=== PATIENT | male | born 1945 | race Caucasian/White ===

== ENCOUNTER → 2020-03-23 09:37 | Outpatient (CLI) | payer OTHER, SELFPAY ==
[2020-03-25 04:08] LABS: COVID19 Sendout Not Detected (Not Detected)
== END ==
PROVIDERS: Family Provider Family Medicine; PCP Family Medicine; Visit Provider Physician Assistant
DX: R50.9 Fever, unspecified (principal)
CPT/HCPCS: 87635

== ENCOUNTER → 2021-11-04 10:41 | Outpatient (CLI) | payer OTHER, SELFPAY ==
--- NOTE | 2021-11-04 | DI.US.S_ITS ---
PROCEDURE: US ABD AORTA ANEURYSM SCREEN INDICATIONS: CARDIOVASCULAR DISORDER/NICOTINE DEPENENCE TECHNIQUE: Real time scanning was performed of the aorta and iliac arteries, with image documentation. COMPARISON: None. FINDINGS: Aorta: Proximal aortic is not well seen. Mid-aorta measures 0.7 cm. Distal aortic diameter is 2.1 cm. Iliac arteries: Right common iliac artery measures 0.9 cm. Left common iliac artery measures 0.8 cm. IMPRESSION: Proximal aorta not well seen; otherwise no abdominal aortic or proximal common iliac artery aneurysm. Dictated by: Santana Andersen [facility] Interpreted: Cirilo Espinoza MD on 11/04/2021 at 14:42 Transcribed by: BRIJESH on 11/04/2021 at 14:43 Approved by: Cirilo Espinoza M.D. on 11/04/2021 at 16:48
== END ==
PROVIDERS: PCP Family Medicine; Referring Provider Family Medicine; Visit Provider Family Medicine
DX: Z13.6 Encounter for screening for cardiovascular disorders (principal); F17.210 Nicotine dependence, cigarettes, uncomplicated
CPT/HCPCS: 76706

== ENCOUNTER 2022-11-28 11:28 | Day surgery (SDC) | payer OTHER, SELFPAY ==
--- NOTE | 2022-11-28 | PATH_ITS ---
[facility] Accession Number: [id number] No. of containers..02 Tissue . 01 Material submitted: . PART A: rectum - RECTUM PART B: colon - ASCENDING COLON . 01 Clinical history: . SCREENING COLONOSCOPY . 01 Diagnosis: A. Rectum, Biopsy: Tubular adenoma. . B. Ascending Colon, Biopsy: Colonic mucosa with prominent benign lymphoid aggregate. Negative for serrated lesion, dysplasia or malignancy. MRV 12/01/2022 1256 Local . 01 Electronically signed: . Mickey Lopez MD, PhD, Pathologist NPI- [id number] . 01 Gross description: . Part A: RECTUM: Received in formalin are 3 fragment(s) of floyd, soft tissue measuring 0.3 x 0.3 x 0.2 cm to 0.2 x 0.1 x 0.1 cm submitted entirely in 1 cassette(s) Part B: ASCENDING COLON: Received in formalin are 2 fragment(s) of floyd, soft tissue measuring 0.2 x 0.1 x 0.1 cm to 0.2 x 0.1 x 0.1 cm submitted entirely in 1 cassette(s) /CPE 11/29/2022 0702 Local . 01 Pathologist provided ICD-10: D12.8 . 01 CPT . 693875, [id number] Specimen Comment: A courtesy copy of this report has been sent to [phone] Performed at: 01 [facility] [address] [place] [address] [id number] MD Lenin Martinez MD Phone: [phone]
[2022-11-28 12:09] VITALS: BMI 26.9
[2022-11-28] MEDS: LACTATED RINGERS 1,000 ML 200 ML IV (12:15)
[2022-11-28 12:19] VITALS: BP 152/86; PULSE 96; RESP 16; TEMP 36.6; O2SAT 97
--- NOTE | 2022-11-28 13:24 | PM.HP.1 ---
History of Present Illness History of Present Illness Date Patient Seen: 11/28/22 Time Patient Seen: 13:24 Chief complaint: Screening Colonoscopy Narrative: The patient presents for colorectal screening. Colonoscopy 6 years ago demonstrated benign polyps. No personal or family history of colon cancer. On further history denies any recent gastrointestinal symptoms. No nausea, vomiting, abdominal pain, loss of appetite, unexplained weight loss, change in bowel habits, or blood per rectum. Patient History Medical History (Updated 11/27/22 @ 15:09 by Aide Saldana RN) Enlarged prostate Hypercholesteremia Family & Social History Social History: household members spouse Tobacco & Substance use: Smoking Status Never smoker alcohol intake current alcohol intake frequency holiday/special occasion Substance Use Type does not use Meds Home Medications and Allergies Home Medications Medication Instructions Recorded Confirmed Type calcium carb,cit 300 mg-magnesium 1 tab PO DAILY 11/27/22 11/28/22 History cit,ox 150 mg-vit D3 400 unit tablet (Hany-Mag Complex) cholecalciferol (vitamin D3) 50 50 mcg PO DAILY 11/27/22 11/28/22 History mcg (2,000 unit) capsule (Vitamin D3) magnesium aspartate-potassium 1 tab PO DAILY 11/27/22 11/28/22 History aspartate 250 mg-250 mg tablet rosuvastatin 5 mg tablet 5 mg PO DAILY 11/27/22 11/28/22 History tamsulosin 0.4 mg capsule 0.4 mg PO BEDTIME 11/27/22 11/28/22 History vitamin K2 40 mcg tablet 40 mcg PO DAILY 11/27/22 11/28/22 History Allergies Allergy/AdvReac Type Severity Reaction Status Date / Time No Known Drug Allergies Allergy Verified 11/28/22 12:07 Exam Vital Signs (past 8 hours): - 11/28/22 12:19 Temperature 97.9 F Pulse Rate 96 H Respiratory Rate 16 Blood Pressure 152/86 H Pulse Oximetry 97 Oxygen Delivery Method Room Air Oxygen Delivery Method Room Air Narrative Exam Narrative: General adult male alert oriented no acute distress Assessment & Plan Assessment & Plan narrative: The patient requires colorectal screening and colonoscopy is recommended. Technical details were discussed. Risks, benefits, alternatives explained. Risks including but not limited to myocardial infarction, aspiration, bleeding, pain, missed lesion, incomplete examination, need for further radiographic studies, colonic perforation, and need for major abdominal surgery were discussed. All questions were answered to their satisfaction, and they are in agreement with this plan. Time Spent With Patient Critical Care time: I spent a total of [] minutes of critical care time on this patient's care today; this time is exclusive of procedural time.
--- NOTE | 2022-11-28 13:25 | PM.OP.COLON ---
Operative Date/Time/Diagnoses Date of procedure: 11/28/22 Time of procedure: 13:25 Pre-op diagnosis: Personal history of colonic polyps Post-op diagnosis: other (Colonic polyps) Procedure & Clinicians Study performed: Colonoscopy Same procedure as scheduled: Yes Indications: Personal history of colonic polyps Surgeon: Jean Ricci Procedure Notes Procedure in detail: The history and physical was performed/updated and the patient is ASA class is 2. The procedure was discussed in detail with the patient. Potential risks complications including infection, bleeding, missed diagnosis, perforation, need for surgery, and were explained. Their questions were answered and informed consent was obtained. Patient was brought to the procedure room and placed standard monitoring equipment. The patient's vital signs were monitored continuously throughout the entire procedure. Prior to starting time-out was performed. The patient was placed in the left lateral recumbent position. Procedural sedation was administered by anesthesia. Examination began with a thorough inspection of the perianal area there was no evidence of fissures, fistulae, external hemorrhoids or cutaneous malignancy. The colonoscopy scope was then placed into the anal canal and was advanced to the cecum, which was identified by the ileocecal valve, the appendiceal orifice and the confluence of the taenia. The scope was then slowly withdrawn examining colon thoroughly in all directions, irrigating it of any residual stool. Within the ascending colon there were 2 polyps both proximally 5 mm in size each which were removed with biopsy forceps. Within the rectum there were 2 polyps both less than 1 cm each removed with combination of biopsy forceps and cold snare. The entirety of the colon was significant for wide mouth diverticulum. The patient tolerated the procedure well. They will be discharged once criteria are met. The prep was of good/excellent quality. The withdrawl time was 7 minutes. Specimen(s): other (Colonic polyps from rectum and ascending colon) Impression: Colonic polyps x4 Post-procedure Recommendations: High fiber diet Plan for aftercare: Follow-up is dependent on pathology findings Disposition: same day surgery
[2022-11-28 13:54] VITALS: BP 147/80; PULSE 76; RESP 16; TEMP 36.2; O2SAT 96
[2022-11-28 13:59] VITALS: BP 156/79; PULSE 81; RESP 16; O2SAT 96
[2022-11-28 14:04] VITALS: BP 166/83; PULSE 76; RESP 14; O2SAT 97
--- NOTE | 2022-11-28 14:04 | SUR.PHASEI ---
pt states he feels a bit bloated and was encouraged to pass gas. Rn suggested some ways to do this by laying on left side, walking around and sitting on the toilet.
[2022-11-28 14:09] VITALS: BP 142/93; PULSE 74; RESP 16; TEMP 36.3; O2SAT 96
[2022-11-28 14:15] VITALS: BP 119/91; PULSE 76; RESP 14; O2SAT 96
--- NOTE | 2022-11-28 14:40 | SUR.PHASEII ---
Pt A&Ox4, denies any distress, abdomen soft, voided without any issues and ready to discharge home. Discharge instructions reviewed with patient and spouse with time allowed for questions. IV DC'd intact. Pt left unit stable with all personal belongings via w/c to ER entrance where spouse will transport pt home.
== END 2022-11-28 14:35 | disposition home or self-care (01) ==
PROVIDERS: PCP Family Medicine; Referring Provider Surgery; Visit Provider Surgery
PROC: 0DJD8ZZ Inspection of Lower Intestinal Tract, Via Natural or Artificial Opening Endoscopic (ICD-10-PCS; CPT 45378; principal; 2022-11-28 13:00)
DX: Z12.11 Encounter for screening for malignant neoplasm of colon (principal); Z86.010 Personal history of colon polyps; D12.8 Benign neoplasm of rectum
CPT/HCPCS: 45385; 45380; J2704; J3010

== ENCOUNTER 2023-04-26 14:07 | Emergency (ER) | payer OTHER, SELFPAY ==
[2023-04-26] VITALS (9 sets, daily range): BP systolic 152–180; BP diastolic 78–93; PULSE 77–97; RESP 18–33; TEMP 36.6; O2SAT 95–97; BMI 27.3
[2023-04-26] MEDS: PANTOPRAZOLE 40 MG VIAL 80 MG IV (14:26)
[2023-04-26 14:50] LABS: Add Manual Diff / Slide Review NO; Basophils Absolute Auto 0 /uL (0-100); Basophils Percent Auto 0.4 % (0-2); Eosinophils Absolute Auto 100 /uL (0-450); Eosinophils Percent Auto 1.9 % (2-4); Hematocrit 51.7 % (41-53); Hemoglobin 17.6 g/dL (13.5-17.5); Lymphocytes Absolute Auto 1300 /uL (1100-4500); Lymphocytes Percent Auto 18.9 % (25-40); Mean Corpuscular HGB Conc 34.1 % (30-36); Mean Corpuscular Hemoglobin 29.5 PG (26-34); Mean Corpuscular Volume 86.3 fL (80-100); Monocytes Absolute Auto 1200 /uL (0-900); Monocytes Percent Auto 16.2 % (3-14); Neutrophils Absolute Auto 4400 /uL (1500-7000); Neutrophils Percent Auto 62.6 % (50-75); Platelet Count 173 X10^3/uL (150-400); Red Blood Cell Count 5.99 X10^6/uL (4.5-5.9); Red Cell Distribution Width 13.8 % (11.6-14.8); White Blood Cell Count 7.1 X10^3/uL (4.5-11.0)
[2023-04-26 14:58] LABS: INR 1.2 (0.9-1.3); Prothrombin Time 13.5 SECONDS (10.1-12.7)
[2023-04-26 15:01] LABS: PTT Partial Thromboplastin Tim 31 SECONDS (26-36)
[2023-04-26 15:07] LABS: Alanine Aminotransferase 19 IU/L (<50); Albumin 3.8 g/dL (3.5-5.0); Albumin Globulin Ratio 1.3 (1.0-2.8); Alkaline Phosphatase 77 U/L (38-126); Aspartate Aminotransferase 28 IU/L (17-59); Bilirubin Total 0.9 mg/dL (0.2-1.3); Blood Urea Nitrogen 18 mg/dL (9-20); Calcium 8.3 mg/dL (8.4-10.2); Carbon Dioxide 28 mmol/L (22-32); Chloride 100 mmol/L (98-107); Estimated Glomerular Filt Rate > 60 mL/min (>60); Glucose 112 mg/dL (80-110); HEMOLYSIS 22 (0-50); Potassium 3.8 mmol/L (3.4-5.1); Sodium 137 mmol/L (137-145); Total Protein 6.8 g/dL (6.3-8.2)
--- NOTE | 2023-04-26 15:28 | DI.CT.S_ITS ---
PROCEDURE: CT ABDOMEN PELVIS W CON INDICATIONS: Generalized abdominal pain with distention TECHNIQUE: After the administration of IV contrast, axial sections were acquired from the lung bases to the pubic symphysis. Coronal and sagittal reformats were performed. For radiation dose reduction, the following was used: automated exposure control, adjustment of mA and/or kV according to patient size. COMPARISON: None. FINDINGS: Image quality: Excellent. Lung bases: Unremarkable. Heart: No significant findings. ABDOMEN: Liver: Hepatic steatosis is present. Gallbladder: Small punctate areas of hyperdensity are noted along the wall of the gallbladder without gallbladder wall thickening. A 3 mm calcification is present within the dependent gallbladder lumen. Biliary ducts: Unremarkable. Pancreas: Unremarkable. Spleen: Unremarkable. Adrenal Glands: Unremarkable. Kidneys and Ureters: Multiple low-attenuation foci are present within the left kidney cyst consistent with simple cysts as well as simple parapelvic cysts. Stomach and Bowel: There are dilated fluid-filled loops of small bowel with greatest dimension measuring 4.4 cm. Transition point appears to be in the mid abdomen. Appendix is normal. Colonic diverticula are present without inflammatory change. Peritoneum: No abnormal intraperitoneal fluid. No free air. Ventral Wall: No hernia. Abdominal Nodes: No retroperitoneal or mesenteric adenopathy by size criteria. Vessels: Aorta and inferior vena cava are normal in size. PELVIS: Pelvic Organs: Unremarkable. Bladder: Bladder is distended with left and right lateral diverticula. Prostate gland is enlarged with calcifications. Pelvic Nodes: No enlarged lymph nodes. Miscellaneous: Bilateral inguinal hernias are seen. Bones: Unremarkable. IMPRESSION: Partial small bowel obstruction as above. Diverticulosis. Cholelithiasis. In addition, punctate areas of hyperdensity are noted along the wall without thickening. This could represent adenomyomatosis further evaluation with ultrasound may be obtained on a nonemergent basis if clinically indicated. No visualization of cholecystitis. Dictated by: Nena Snow M.D. on 04/26/2023 at 16:24 Approved by: Nena Snow M.D. on 04/26/2023 at 16:26
--- NOTE | 2023-04-26 15:28 | ED_ITS ---
HPI - General Adult General Chief complaint: Abdominal Pain Stated complaint: Swollen stomach Time Seen by Provider: 04/26/23 14:37 Source: patient Mode of arrival: Ambulatory History of Present Illness HPI narrative: 77-year-old male with no prior abdominal surgeries. Has had multiple colonoscopies in the past. He has had some polyps in the past. Is also told that he had diverticulosis. He stated that proximally 3 days ago he started to feel like his abdomen was distended. He did throw up once. He is not thrown up since then but has had some nausea. He is not having any urinary symptoms. Is still passing flatus. Is still having bowel movements. None of these seem to change any of his abdominal complaints. No chest pain or shortness of breath. No fevers. Related Data Home Medications Medication Instructions Recorded Confirmed calcium carb,cit 300 mg-magnesium 1 tab PO DAILY 11/27/22 04/12/23 cit,ox 150 mg-vit D3 400 unit tablet (Hany-Mag Complex) cholecalciferol (vitamin D3) 50 50 mcg PO DAILY 11/27/22 04/12/23 mcg (2,000 unit) capsule (Vitamin D3) magnesium aspartate-potassium 1 tab PO DAILY 11/27/22 04/12/23 aspartate 250 mg-250 mg tablet vitamin K2 40 mcg tablet 40 mcg PO DAILY 11/27/22 04/12/23 rosuvastatin 5 mg tablet 10 mg PO DAILY 04/12/23 04/12/23 Previous Rx's Medication Instructions Recorded tamsulosin 0.4 mg capsule 0.4 mg PO BEDTIME #180 caps 04/12/23 Allergies Allergy/AdvReac Type Severity Reaction Status Date / Time No Known Drug Allergies Allergy Verified 04/12/23 12:54 Review of Systems Review of Systems ROS Unobtainable: All systems reviewed & are unremarkable except as noted in HPI and below Constitutional Constitutional: Reports system reviewed and no additional complaints, except as documented Gastrointestinal Gastrointestinal: Reports system reviewed and no additional complaints, except as documented Genitourinary Genitourinary: Reports system reviewed and no additional complaints, except as documented Integumentary/Breasts Skin/Breast: Reports system reviewed and no additional complaints, except as documented Patient History Medical History BPH w urinary obs/LUTS Enlarged prostate H/O nephrolithotomy with removal of calculi Heart attack History of nephrolithiasis Hypercholesteremia Kidney stones Renal disease Surgical History History of coronary artery stent placement Family History Mother Cancer CAD in [place] artery Hypertension Social History marital status: number of children: 1 household members: spouse Smoking Status: Former smoker alcohol intake: current Type(s) of exercise: walking frequency: 1-2 times per week Smoking Status: Former smoker alcohol intake frequency: holidays/special occasions only Substance Use Type: does not use Exam Initial Vital Signs Initial Vital Signs: Vital Signs Temperature 97.9 F 04/26/23 14:10 Pulse Rate 97 H 04/26/23 14:10 Respiratory Rate 18 04/26/23 14:10 Blood Pressure 170/78 H 04/26/23 14:10 Pulse Oximetry 97 04/26/23 14:10 Oxygen Delivery Method Room Air 04/26/23 14:10 Const General: cooperative, comfortable and No ill appearing HENMT Head: normal to inspection Resp Effort & Inspection: normal respiratory effort Auscultation: clear to auscultation bilaterally Cardio Rate: regular rate Rhythm: regular rhythm GI Inspection: normal to inspection and distended Palpation: soft and No tender Neuro General: patient alert, patient awake and moves all extremities Course Orders Ordered: ED Orders 04/26/23 14:18 EKG-12 Lead Stat 04/26/23 14:38 Complete Blood Count AUTO DIFF Stat Comprehensive Metabolic Panel Stat PTT Partial Thromboplastin Adrian Stat Prothrombin Time INR Stat Type and Screen Stat 04/26/23 15:28 CT abdomen pelvis w con Stat 04/26/23 17:04 Consult to General Surgery Stat Sodium Chloride (Normal Saline 0.9%) 1,000 mls @ 1,000 mls/hr IV BOLUS ONE Stop: 04/26/23 18:47 Ondansetron HCl (Ondansetron 4 Mg/2 Ml Inj) 4 mg IV NOW PRN PRN Reason: Nausea And Vomiting Ondansetron HCl (Ondansetron 4 Mg Odt) 4 mg SL NOW PRN PRN Reason: Nausea And Vomiting Discontinued Medications Pantoprazole Sodium (Pantoprazole 40 Mg Vial) 80 mg IV NOW ONE Stop: 04/26/23 14:19 Last Admin: 04/26/23 14:26 Dose: 80 mg Documented By: NADYA Vital Signs Vital signs: Vital Signs - 8 hr 04/26/23 14:10 04/26/23 14:31 04/26/23 15:00 Temperature 97.9 F Pulse Rate 97 H 83 83 Respiratory Rate 18 24 Blood Pressure 170/78 H Pulse Oximetry 97 97 97 Oxygen Delivery Method Room Air 04/26/23 15:01 04/26/23 15:01 04/26/23 15:30 Temperature Pulse Rate 84 Respiratory Rate 29 H Blood Pressure 154/88 H 152/84 H Pulse Oximetry 96 Oxygen Delivery Method 04/26/23 15:30 04/26/23 16:00 04/26/23 16:11 Temperature Pulse Rate 79 79 Respiratory Rate 31 H 31 H Blood Pressure 163/91 H Pulse Oximetry 95 97 Oxygen Delivery Method 04/26/23 16:11 04/26/23 16:15 04/26/23 16:15 Temperature Pulse Rate 78 78 Respiratory Rate 26 H 33 H Blood Pressure 167/93 H Pulse Oximetry 96 96 Oxygen Delivery Method Medical Decision Making Lab Data Lab results reviewed: Yes I reviewed the patient's lab results. 04/26/23 14:38 04/26/23 14:38 Labs: Lab Results 04/26/23 04/26/23 04/26/23 Range/Units 14:38 14:38 14:38 WBC 7.1 (4.5-11.0) X10^3/uL RBC 5.99 H (4.5-5.9) X10^6/uL Hgb 17.6 H (13.5-17.5) g/dL Hct 51.7 (41-53) % MCV 86.3 (80-100) fL MCH 29.5 (26-34) PG MCHC 34.1 (30-36) % RDW 13.8 (11.6-14.8) % Plt Count 173 (150-400) X10^3/uL Neut % (Auto) 62.6 (50-75) % Lymph % (Auto) 18.9 L (25-40) % Bradford % (Auto) 16.2 H (3-14) % Eos % (Auto) 1.9 L (2-4) % Baso % (Auto) 0.4 (0-2) % Neut # (Auto) 4400 (7363-5488) /uL Lymph # (Auto) 1300 (2943-6270) /uL Bradford # (Auto) 1200 H (0-900) /uL Eos # (Auto) 100 (0-450) /uL Baso # (Auto) 0 (0-100) /uL PT 13.5 H (10.1-12.7) SECONDS INR 1.2 (0.9-1.3) APTT 31 (26-36) SECONDS Sodium 137 (137-145) mmol/L Potassium 3.8 (3.4-5.1) mmol/L Chloride 100 (98-107) mmol/L Carbon Dioxide 28 (22-32) mmol/L BUN 18 (9-20) mg/dL Creatinine 0.82 (0.66-1.25) mg/dL Estimated GFR > 60 (>60) mL/min BUN/Creatinine Ratio 22.0 (6-22) Glucose 112 H (80-110) mg/dL Calcium 8.3 L (8.4-10.2) mg/dL Total Bilirubin 0.9 (0.2-1.3) mg/dL AST 28 (17-59) IU/L ALT 19 (<50) IU/L Alkaline Phosphatase 77 (38-126) U/L Total Protein 6.8 (6.3-8.2) g/dL Albumin 3.8 (3.5-5.0) g/dL Globulin 3.0 (1.7-4.1) g/dL Albumin/Globulin Ratio 1.3 (1.0-2.8) Blood Type Antibody Screen 04/26/23 Range/Units 14:38 WBC (4.5-11.0) X10^3/uL RBC (4.5-5.9) X10^6/uL Hgb (13.5-17.5) g/dL Hct (41-53) % MCV (80-100) fL MCH (26-34) PG MCHC (30-36) % RDW (11.6-14.8) % Plt Count (150-400) X10^3/uL Neut % (Auto) (50-75) % Lymph % (Auto) (25-40) % Bradford % (Auto) (3-14) % Eos % (Auto) (2-4) % Baso % (Auto) (0-2) % Neut # (Auto) (1398-6364) /uL Lymph # (Auto) (6380-0750) /uL Bradford # (Auto) (0-900) /uL Eos # (Auto) (0-450) /uL Baso # (Auto) (0-100) /uL PT (10.1-12.7) SECONDS INR (0.9-1.3) APTT (26-36) SECONDS Sodium (137-145) mmol/L Potassium (3.4-5.1) mmol/L Chloride (98-107) mmol/L Carbon Dioxide (22-32) mmol/L BUN (9-20) mg/dL Creatinine (0.66-1.25) mg/dL Estimated GFR (>60) mL/min BUN/Creatinine Ratio (6-22) Glucose (80-110) mg/dL Calcium (8.4-10.2) mg/dL Total Bilirubin (0.2-1.3) mg/dL AST (17-59) IU/L ALT (<50) IU/L Alkaline Phosphatase (38-126) U/L Total Protein (6.3-8.2) g/dL Albumin (3.5-5.0) g/dL Globulin (1.7-4.1) g/dL Albumin/Globulin Ratio (1.0-2.8) Blood Type B Positive Antibody Screen Negative Imaging Data CT scan - abdomen/pelvis: Radiologist's Impression: PROCEDURE:? CT ABDOMEN PELVIS W CON ? INDICATIONS:? Generalized abdominal pain with distention ? TECHNIQUE:? After the administration of IV contrast, axial sections were acquired from the lung bases to the pubic symphysis.? Coronal and sagittal reformats were performed.? For radiation dose reduction, the following was used:? automated exposure control, adjustment of mA and/or kV according to patient size. ? COMPARISON:? None. ? FINDINGS:? Image quality:? Excellent.? ? Lung bases:? Unremarkable.? ? Heart:? No significant findings. ? ? ABDOMEN: Liver:? Hepatic steatosis is present. Gallbladder:? Small punctate areas of hyperdensity are noted along the wall of the gallbladder without gallbladder wall thickening.? A 3 mm calcification is present within the dependent gallbladder lumen.? ? Biliary ducts:? Unremarkable.? ? Pancreas:? Unremarkable.? ? Spleen:? Unremarkable.? ? Adrenal Glands:? Unremarkable.? ? Kidneys and Ureters:? Multiple low-attenuation foci are present within the left kidney cyst consistent with simple cysts as well as simple parapelvic cysts. ? Stomach and Bowel:? There are dilated fluid-filled loops of small bowel with greatest dimension measuring 4.4 cm.? Transition point appears to be in the mid abdomen.? Appendix is normal.? Colonic diverticula are present without inflammatory change.? Peritoneum:? No abnormal intraperitoneal fluid.? No free air.? ? Ventral Wall: ? No hernia.? Abdominal Nodes:? No retroperitoneal or mesenteric adenopathy by size criteria.? Vessels:? Aorta and inferior vena cava are normal in size.? ? PELVIS: Pelvic Organs:? Unremarkable.? ? Bladder:? Bladder is distended with left and right lateral diverticula.? Prostate gland is enlarged with calcifications. Pelvic Nodes: No enlarged lymph nodes.? Miscellaneous:? Bilateral inguinal hernias are seen. ? ? ? Bones:? Unremarkable.? IMPRESSION:? ? Partial small bowel obstruction as above. ? Diverticulosis. ? Cholelithiasis.? In addition, punctate areas of hyperdensity are noted along the wall without thickening.? This could represent adenomyomatosis further evaluation with ultrasound may be obtained on a nonemergent basis if clinically indicated.? No visualization of cholecystitis. ECG Data Attestation: I personally reviewed and interpreted this ECG as follows: Interpretation: Sinus rhythm Ventricular rate 84 First-degree AV block GA interval 214 milliseconds Right bundle-branch block No ST T wave changes MDM Narrative Medical decision making narrative: Patient has been having bowel movements and also passing flatus. He is having some nausea but no vomiting. Is tolerating oral intake. CT scan concerning for partial small bowel obstruction. He does have distended abdomen. Did discuss the case with Dr. Gonzales on-call for General surgery who evaluated the patient here in the emergency department. Because he has been passing flatus and also having bowel movements Dr. Gonzales is more concerned that potentially this is an ileus rather than a bowel obstruction. He talked with the patient about admission to the hospital versus discharge home. Patient and at bedside okay with discharge home. They do live locally. If his symptoms worsen they will return to the emergency department for further evaluation. Discharge Plan Departure Patient Disposition: Home Clinical Impression: Abdominal pain Instructions: DI for Abdominal Pain-Adult Activity Restrictions/Additional Instructions: Be sure that you were increasing your fluid intake with clear liquids. If your symptoms worsen or you start vomiting or any new symptoms please return to the emergency department. Follow all of the instructions given to you by the general surgeon who evaluated you here in the ER. Prescriptions: No Action magnesium, potassium aspartate 250-250 mg Tablet 1 tab PO DAILY cholecalciferol (vitamin D3) [Vitamin D3] 50 mcg (2,000 unit) Capsule 50 mcg PO DAILY vitamin K2 40 mcg Tablet 40 mcg PO DAILY Hany-Mag Complex 300 mg-150 mg- 400 unit Tablet 1 tab PO DAILY rosuvastatin 5 mg tablet 10 mg PO DAILY tamsulosin 0.4 mg capsule 0.4 mg PO BEDTIME Qty: 180 3RF Referrals: Eduardo Torres MD [Primary Care Provider] - Stand Alone Forms: Patient Portal/API
--- NOTE | 2023-04-26 17:51 | PM.CN ---
History of Present Illness Consult details Date Patient Seen: 04/26/23 Time Patient Seen: 17:52 Chief complaint: Swollen stomach Narrative: The patient is a 77-year-old man who presented with abdominal discomfort, distention, nausea and vomiting over the past 4-5 days. His worse day was Sunday when he vomited after eating. He is not vomited since then his nausea has actually resolved somewhat today. He is continuing to pass flatus and even some small amounts of stool. He has never had abdominal surgery before. He saw his urologist last week and his dose of tamsulosin was increased twice a day but it made him feel loopy so we stopped after 2 days. Meds Home Medications and Allergies Home Medications Medication Instructions Recorded Confirmed Type calcium carb,cit 300 mg-magnesium 1 tab PO DAILY 11/27/22 04/12/23 History cit,ox 150 mg-vit D3 400 unit tablet (Hany-Mag Complex) cholecalciferol (vitamin D3) 50 50 mcg PO DAILY 11/27/22 04/12/23 History mcg (2,000 unit) capsule (Vitamin D3) magnesium aspartate-potassium 1 tab PO DAILY 11/27/22 04/12/23 History aspartate 250 mg-250 mg tablet vitamin K2 40 mcg tablet 40 mcg PO DAILY 11/27/22 04/12/23 History rosuvastatin 5 mg tablet 10 mg PO DAILY 04/12/23 04/12/23 History tamsulosin 0.4 mg capsule 0.4 mg PO BEDTIME #180 caps 04/12/23 04/12/23 Rx Allergies Allergy/AdvReac Type Severity Reaction Status Date / Time No Known Drug Allergies Allergy Verified 04/12/23 12:54 Exam Vital Signs (past 8 hours): - 04/26/23 14:10 04/26/23 14:31 04/26/23 15:00 Temperature 97.9 F Pulse Rate 97 H 83 83 Respiratory Rate 18 24 Blood Pressure 170/78 H Pulse Oximetry 97 97 97 Oxygen Delivery Method Room Air 04/26/23 15:01 04/26/23 15:01 04/26/23 15:30 Temperature Pulse Rate 84 Respiratory Rate 29 H Blood Pressure 154/88 H 152/84 H Pulse Oximetry 96 Oxygen Delivery Method 04/26/23 15:30 04/26/23 16:00 04/26/23 16:11 Temperature Pulse Rate 79 79 Respiratory Rate 31 H 31 H Blood Pressure 163/91 H Pulse Oximetry 95 97 Oxygen Delivery Method 04/26/23 16:11 04/26/23 16:15 04/26/23 16:15 Temperature Pulse Rate 78 78 Respiratory Rate 26 H 33 H Blood Pressure 167/93 H Pulse Oximetry 96 96 Oxygen Delivery Method Oxygen Delivery Method Room Air Narrative Exam Narrative: Abdomen soft, nontender, mid tenderness in the mid abdomen No peritonitis Objective Labs 04/26/23 14:38 04/26/23 14:38 Labs: Laboratory Results - last 24 hr 04/26/23 04/26/23 04/26/23 14:38 14:38 14:38 WBC 7.1 RBC 5.99 H Hgb 17.6 H Hct 51.7 MCV 86.3 MCH 29.5 MCHC 34.1 RDW 13.8 Plt Count 173 Neut % (Auto) 62.6 Lymph % (Auto) 18.9 L Blaine % (Auto) 16.2 H Eos % (Auto) 1.9 L Baso % (Auto) 0.4 Neut # (Auto) 4400 Lymph # (Auto) 1300 Blaine # (Auto) 1200 H Eos # (Auto) 100 Baso # (Auto) 0 PT 13.5 H INR 1.2 APTT 31 Sodium 137 Potassium 3.8 Chloride 100 Carbon Dioxide 28 BUN 18 Creatinine 0.82 Estimated GFR > 60 BUN/Creatinine Ratio 22.0 Glucose 112 H Calcium 8.3 L Total Bilirubin 0.9 AST 28 ALT 19 Alkaline Phosphatase 77 Total Protein 6.8 Albumin 3.8 Globulin 3.0 Albumin/Globulin Ratio 1.3 Blood Type Antibody Screen 04/26/23 14:38 WBC RBC Hgb Hct MCV MCH MCHC RDW Plt Count Neut % (Auto) Lymph % (Auto) Blaine % (Auto) Eos % (Auto) Baso % (Auto) Neut # (Auto) Lymph # (Auto) Blaine # (Auto) Eos # (Auto) Baso # (Auto) PT INR APTT Sodium Potassium Chloride Carbon Dioxide BUN Creatinine Estimated GFR BUN/Creatinine Ratio Glucose Calcium Total Bilirubin AST ALT Alkaline Phosphatase Total Protein Albumin Globulin Albumin/Globulin Ratio Blood Type B Positive Antibody Screen Negative [facility] Medical History BPH w urinary obs/LUTS Enlarged prostate H/O nephrolithotomy with removal of calculi Heart attack History of nephrolithiasis Hypercholesteremia Kidney stones Renal disease Surgical History History of coronary artery stent placement Family History Mother Cancer CAD in [place] artery Hypertension Social History marital status: number of children: 1 household members: spouse Tobacco & Substance Use Smoking Status: Former smoker alcohol intake: current Diet and Exercise Type(s) of exercise: walking frequency: 1-2 times per week Assessment & Plan Assessment and plan (1) Abdominal distention: Status: Acute Plan I suspect Joe has more of an ileus secondary to either some sort of a viral infection or his medication change. He is never had abdominal surgery and he continues to pass flatus and even some stool so a bowel obstruction seems unlikely. I presented 2 options to Joe. One option would be to admit him for observation. We would give him IV fluids but no other therapy would be initiated to start. If he became more nauseated and started vomiting we would place an NG-tube. We would then progress up the ladder to Gastrografin challenge and surgery. Alternatively we can give him a L fluids here to hydrate him and he can go home and see how things evolve. I would recommend he have only small amounts of clear liquid diet initially and less he started feeling better soon. He lives in [facility] but he and his were comfortable getting back here quickly if needed. I told him to return if he gets worse at all or if he does not improve within 2 days. Joe and his choose to go home.
== END 2023-04-26 18:13 | disposition home or self-care (01) ==
PROVIDERS: Emergency Provider Emergency Medicine; PCP Family Medicine
DX: R10.84 Generalized abdominal pain (principal); R14.0 Abdominal distension (gaseous)
CPT/HCPCS: 36415; 74177; 80053; 85025; 85610; 85730; 86850; 86900; 86901; 93005; 93010; 96374; 99231; 99284; C9113; Q9967

== ENCOUNTER 2023-04-27 14:38 | Observation (INO) | payer OTHER, SELFPAY ==
--- NOTE | 2023-04-27 14:44 | ED_ITS ---
HPI - General Adult General Chief complaint: Abdominal Pain Stated complaint: here yesterday symptoms are the same or worse Time Seen by Provider: 04/27/23 14:42 Source: patient Mode of arrival: Ambulatory Limitations: no limitations History of Present Illness HPI narrative: Patient is a 77-year-old male who was here in the emergency department yesterday. I evaluated him yesterday. He would a CT scan that was concerning for small-bowel obstruction however he was still tolerating oral intake. Still passing flatus and also still having bowel movements. He was evaluated in the emergency department by Dr. Gonzales who was on-call for General surgery who also evaluated his CT scan. He would a discussion with the patient. They did discuss the possibility for admission to the hospital versus discharge home. Clinically Dr. Gonzales had lesser concern for a bowel obstruction and more concern for an ileus based on his physical exam. After this discussion the patient opted to be discharged home. He stated that things were going well up until last evening when he stops passing flatus. He tried to drink some fluids and eat some toast this morning and had quite a bit of discomfort. Is having nausea but no vomiting. Has not had a bowel movement. No urinary issues. He states that his abdomen is still distended. Potentially not worse than yesterday was certainly not any better. Related Data Home Medications Medication Instructions Recorded Confirmed calcium carb,cit 300 mg-magnesium 1 tab PO DAILY 11/27/22 04/12/23 cit,ox 150 mg-vit D3 400 unit tablet (Hany-Mag Complex) cholecalciferol (vitamin D3) 50 50 mcg PO DAILY 11/27/22 04/12/23 mcg (2,000 unit) capsule (Vitamin D3) magnesium aspartate-potassium 1 tab PO DAILY 11/27/22 04/12/23 aspartate 250 mg-250 mg tablet vitamin K2 40 mcg tablet 40 mcg PO DAILY 11/27/22 04/12/23 rosuvastatin 5 mg tablet 10 mg PO DAILY 04/12/23 04/12/23 Previous Rx's Medication Instructions Recorded tamsulosin 0.4 mg capsule 0.4 mg PO BEDTIME #180 caps 04/12/23 Allergies Allergy/AdvReac Type Severity Reaction Status Date / Time No Known Drug Allergies Allergy Verified 04/27/23 14:49 Review of Systems Constitutional Constitutional: Reports system reviewed and no additional complaints, except as documented Respiratory Respiratory: Reports system reviewed and no additional complaints, except as documented Gastrointestinal Gastrointestinal: Reports system reviewed and no additional complaints, except as documented Genitourinary Genitourinary: Reports system reviewed and no additional complaints, except as documented Integumentary/Breasts Skin/Breast: Reports system reviewed and no additional complaints, except as documented Hematologic/Lymphatic On Anticoagulants: No Patient History Medical History BPH w urinary obs/LUTS Enlarged prostate H/O nephrolithotomy with removal of calculi Heart attack History of nephrolithiasis Hypercholesteremia Kidney stones Renal disease Surgical History History of coronary artery stent placement Family History Mother Cancer CAD in [place] artery Hypertension Social History marital status: number of children: 1 household members: spouse Smoking Status: Former smoker alcohol intake: current Type(s) of exercise: walking frequency: 1-2 times per week Smoking Status: Former smoker alcohol intake frequency: holidays/special occasions only Substance Use Type: does not use Exam Initial Vital Signs Initial Vital Signs: Vital Signs Temperature 97.1 F L 04/27/23 14:46 Pulse Rate 92 H 04/27/23 14:46 Respiratory Rate 18 04/27/23 14:46 Blood Pressure 167/84 H 04/27/23 14:46 Pulse Oximetry 96 04/27/23 14:46 Oxygen Delivery Method Room Air 04/27/23 14:46 Const General: cooperative, comfortable and No ill appearing [facility] Head: normal to inspection and normocephalic Resp Effort & Inspection: normal respiratory effort Cardio Rate: regular rate GI Inspection: distended Palpation: soft, No firm, No guarding and tender Neuro General: patient alert, patient awake and moves all extremities Course Orders Ordered: ED Orders 04/27/23 14:51 Basic Metabolic Panel Stat Complete Blood Count AUTO DIFF Stat 04/27/23 14:52 XR abdomen 1V Stat Sodium Chloride (Normal Saline 0.9%) 1,000 mls @ 125 mls/hr IV CONT CARLOS Last Admin: 04/27/23 15:07 Dose: 125 mls/hr Documented By: SB Vital Signs Vital signs: Vital Signs - 8 hr 04/27/23 14:46 04/27/23 14:46 04/27/23 14:47 Temperature 97.1 F L Pulse Rate 92 H 93 H Respiratory Rate 18 Blood Pressure 167/84 H 166/84 H Pulse Oximetry 96 95 Oxygen Delivery Method Room Air 04/27/23 14:47 Temperature Pulse Rate 91 H Respiratory Rate Blood Pressure Pulse Oximetry 95 Oxygen Delivery Method Medical Decision Making Medical Records Medical records reviewed: Yes I reviewed the patient's medical records. Lab Data Lab results reviewed: Yes I reviewed the patient's lab results. 04/27/23 15:02 04/27/23 15:02 Imaging Data Abdominal x-ray: Radiologist's Impression: PROCEDURE:? XR ABDOMEN 1V ? INDICATIONS:? sbo yesterday ? TECHNIQUE:? One view of the abdomen acquired.? ? COMPARISON:? Located Within [facility], CT, CT ABDOMEN PELVIS W CON, 04/26/2023, 15:38. ? FINDINGS:? ? Surgical changes and devices:? None.? ? Bowel:? Bowel gas pattern is abnormal with persistent gas prominence within the small bowel through the mid abdomen.? The pattern is little if any changed from CT scanning 1 day ago..? ? Soft tissues:? No suspicious abdominal calcifications.? Visualized solid organ contours appear normal in size.? ? Bones:? No suspicious bony lesions.? ? IMPRESSION:? Persistent small-bowel obstruction pattern, no free air seen.? An esophagogastric tube is not identified. MDM Narrative Medical decision making narrative: Patient has a known potential small-bowel obstruction based on his CT scan yesterday. I did discuss the case with Dr. Camacho who is on-call for General surgery who reviewed his CT scan from yesterday. She recommended repeat labs and an upright x-ray. Plan to be is to admit the patient to the hospital for further evaluation and treatment. I did discuss the need for admission with the patient. He expressed understanding as well. Discharge Plan Departure Patient Disposition: Admitted As Inpatient Clinical Impression: Partial small bowel obstruction Admit Date/Time: 04/27/23 14:53 Admit Provider: Ana Camacho
[2023-04-27 14:46] VITALS: BP 167/84; PULSE 92; PULSE 93; RESP 18; TEMP 36.2; O2SAT 95; O2SAT 96; BMI 27.3
[2023-04-27 14:47] VITALS: BP 166/84; PULSE 91; O2SAT 95
--- NOTE | 2023-04-27 14:52 | DI.RAD.S_ITS ---
PROCEDURE: XR ABDOMEN 1V INDICATIONS: sbo yesterday TECHNIQUE: One view of the abdomen acquired. COMPARISON: [facility], CT, CT ABDOMEN PELVIS W CON, 04/26/2023, 15:38. FINDINGS: Surgical changes and devices: None. Bowel: Bowel gas pattern is abnormal with persistent gas prominence within the small bowel through the mid abdomen. The pattern is little if any changed from CT scanning 1 day ago.. Soft tissues: No suspicious abdominal calcifications. Visualized solid organ contours appear normal in size. Bones: No suspicious bony lesions. IMPRESSION: Persistent small-bowel obstruction pattern, no free air seen. An esophagogastric tube is not identified. Dictated by: Awais Singletary M.D. on 04/27/2023 at 15:21 Approved by: Awais Singletary M.D. on 04/27/2023 at 15:21
[2023-04-27 15:00] VITALS: BP 161/80; PULSE 86; O2SAT 94
[2023-04-27] MEDS: SODIUM CHLORIDE 0.9% 1,000 ML 125 ML IV (15:07)
[2023-04-27 15:11] LABS: Add Manual Diff / Slide Review NO; Basophils Absolute Auto 0 /uL (0-100); Basophils Percent Auto 0.3 % (0-2); Eosinophils Absolute Auto 100 /uL (0-450); Eosinophils Percent Auto 2.3 % (2-4); Hematocrit 48.5 % (41-53); Hemoglobin 16.4 g/dL (13.5-17.5); Lymphocytes Absolute Auto 1200 /uL (1100-4500); Mean Corpuscular HGB Conc 33.8 % (30-36); Mean Corpuscular Hemoglobin 29.3 PG (26-34); Mean Corpuscular Volume 86.7 fL (80-100); Monocytes Absolute Auto 700 /uL (0-900); Neutrophils Absolute Auto 3500 /uL (1500-7000); Neutrophils Percent Auto 63.4 % (50-75); Platelet Count 166 X10^3/uL (150-400); Red Blood Cell Count 5.59 X10^6/uL (4.5-5.9); Red Cell Distribution Width 13.7 % (11.6-14.8); White Blood Cell Count 5.5 X10^3/uL (4.5-11.0)
[2023-04-27 15:18] VITALS: BP 167/81; PULSE 83; O2SAT 96
[2023-04-27 15:21] LABS: BUN Creatinine Ratio 21.5 (6-22); Blood Urea Nitrogen 14 mg/dL (9-20); Calcium 8.4 mg/dL (8.4-10.2); Carbon Dioxide 24 mmol/L (22-32); Chloride 104 mmol/L (98-107); Estimated Glomerular Filt Rate > 60 mL/min (>60); Glucose 107 mg/dL (80-110); HEMOLYSIS 17 (0-50); Potassium 3.7 mmol/L (3.4-5.1); Sodium 137 mmol/L (137-145)
[2023-04-27 15:29] VITALS: BMI 27.3
[2023-04-27 15:37] VITALS: BMI 27.3
[2023-04-27 15:46] VITALS: BP 143/86; PULSE 78; RESP 17; TEMP 36.6; O2SAT 96
[2023-04-27 19:27] VITALS: BP 163/86; PULSE 75; RESP 20; TEMP 36.2; O2SAT 96
[2023-04-27] MEDS: ACETAMINOPHEN 325 MG TABLET 975 MG PO (19:49)
[2023-04-27] MEDS: SODIUM CHLORIDE 0.9% 1,000 ML 100 ML IV (19:55)
--- NOTE | 2023-04-27 20:42 | PM.HP.1 ---
History of Present Illness History of Present Illness Date Patient Seen: 04/27/23 Time Patient Seen: 20:46 Chief complaint: here yesterday symptoms are the same or worse Narrative: 77-year-old male who lives on [facility] started to have abdominal pain starting Sunday this week. Time he felt some nausea and described the pain as a ?bandlike pressure? across his abdomen. That night he did have some emesis with bile and acid. He had some night sweats as well. Sunday the pain continued and he was not able to eat. Time he did he was very nauseous. On Sunday and he was increasingly distended with continuing pain and decided to come to the emergency room for an evaluation. Was seen and had a CT scan that showed a possible partial small bowel obstruction and was sent home with return instructions. He has now returned to the emergency room today because his symptoms are not improved. He has been passing gas and yesterday he felt that he had a period of time where he had not been passing gas but he is currently passing flatus. He endorses that his nausea is now improved as well as his pain. His last good bowel movement however was not since Sunday. He denies a history of struggle with constipation. In the last 2-3 weeks he has been having some hard dry poops but has not had any recent changes in medications. He does take several heavy metal supplements but he has been on those for at least a year. He does have a urologist and his main complaint has been nocturia for which he takes tamsulosin. He is had postvoid residuals in the past that have not been a problem. He denies suprapubic pain or difficulty otherwise with urination. Never had abdominal surgery before never had symptoms like this before. [facility] Medical History BPH w urinary obs/LUTS Enlarged prostate H/O nephrolithotomy with removal of calculi Heart attack History of nephrolithiasis Hypercholesteremia Kidney stones Renal disease Surgical History History of coronary artery stent placement Family History Mother Cancer CAD in [place] artery Hypertension Social History (Reviewed 08/04/23 @ 15:10 by CORONA Garcia marital status: number of children: 1 household members: spouse Smoking Status: Former smoker alcohol intake: current Type(s) of exercise: walking frequency: 1-2 times per week Meds Home Medications and Allergies Home Medications Medication Instructions Recorded Confirmed Type calcium carb,cit 300 mg-magnesium 1 tab PO DAILY 11/27/22 04/27/23 History cit,ox 150 mg-vit D3 400 unit tablet (Hany-Mag Complex) cholecalciferol (vitamin D3) 50 50 mcg PO DAILY 11/27/22 04/27/23 History mcg (2,000 unit) capsule (Vitamin D3) magnesium aspartate-potassium 1 tab PO DAILY 11/27/22 04/27/23 History aspartate 250 mg-250 mg tablet vitamin K2 40 mcg tablet 40 mcg PO DAILY 11/27/22 04/27/23 History rosuvastatin 5 mg tablet 10 mg PO DAILY 04/12/23 04/27/23 History tamsulosin 0.4 mg capsule 0.4 mg PO BEDTIME #180 caps 04/12/23 04/27/23 Rx lisinopril 5 mg tablet 5 mg PO DAILY 04/27/23 04/27/23 History Allergies Allergy/AdvReac Type Severity Reaction Status Date / Time No Known Drug Allergies Allergy Verified 04/27/23 14:49 Exam Vital Signs (past 8 hours): - 04/27/23 14:46 04/27/23 14:46 04/27/23 14:47 Temperature 97.1 F L Pulse Rate 92 H 93 H Respiratory Rate 18 Blood Pressure 167/84 H 166/84 H Pulse Oximetry 96 95 Oxygen Delivery Method Room Air Oxygen Flow Rate 04/27/23 14:47 04/27/23 15:00 04/27/23 15:00 Temperature Pulse Rate 91 H 86 Respiratory Rate Blood Pressure 161/80 H Pulse Oximetry 95 94 Oxygen Delivery Method Oxygen Flow Rate 04/27/23 15:18 04/27/23 15:18 04/27/23 15:46 Temperature 97.8 F Pulse Rate 83 78 Respiratory Rate 17 Blood Pressure 167/81 H 143/86 H Pulse Oximetry 96 96 Oxygen Delivery Method Room Air Oxygen Flow Rate 0 04/27/23 19:27 Temperature 97.2 F L Pulse Rate 75 Respiratory Rate 20 Blood Pressure 163/86 H Pulse Oximetry 96 Oxygen Delivery Method Oxygen Flow Rate 0 Oxygen Delivery Method Room Air Oxygen Flow Rate 0 Const General: cooperative, healthy appearing, comfortable and No acute distress Nutritional Appearance: thin Orientation: alert, awake and oriented x3 HENMT Head: normal to inspection Mouth: moist mucous membranes Eyes General: appearance normal, both eyes and all related structures Resp Effort & Inspection: normal respiratory effort and able to speak in complete sentences GI Palpation: soft, No tender and other Other: The abdomen is definitely distended. Mildly tender but non localized. No peritoneal signs no suprapubic tenderness no abdominal incisions or hernias Objective Labs 04/27/23 15:02 04/27/23 15:02 Labs: Laboratory Results - last 24 hr 04/27/23 04/27/23 15:02 15:02 WBC 5.5 RBC 5.59 Hgb 16.4 Hct 48.5 MCV 86.7 MCH 29.3 MCHC 33.8 RDW 13.7 Plt Count 166 Neut % (Auto) 63.4 Lymph % (Auto) 21.0 L Hayes % (Auto) 13.0 Eos % (Auto) 2.3 Baso % (Auto) 0.3 Neut # (Auto) 3500 Lymph # (Auto) 1200 Hayes # (Auto) 700 Eos # (Auto) 100 Baso # (Auto) 0 Sodium 137 Potassium 3.7 Chloride 104 Carbon Dioxide 24 BUN 14 Creatinine 0.65 L Estimated GFR > 60 BUN/Creatinine Ratio 21.5 Glucose 107 Calcium 8.4 Assessment & Plan Assessment and plan (1) Abdominal pain: Status: Acute (2) Partial small bowel obstruction: Status: Acute (3) Constipation: Problem details: Seen on CT scan Status: Acute Assessment & Plan narrative: Mr. Boggs has no other reason for partial small bowel obstruction and I personally reviewed and interpreted the images of the CT scan. I do see a large amount of stool especially large ball of stool in the pelvic region on today's plain abdominal film. I suspect that constipation is the cause of his symptoms however I can not rule out a partial small-bowel obstruction and given the distention of his small bowel on the CT scan I do not want to aggressively give him bowel regimen by mouth. I think starting with enema to try to clear up and break up the colonic stool may actually be more effective as well. Therefore this is what I have recommended. Can do a Gastrografin follow-through but I already know this is a partial obstruction based on my history and physical exam and so I really do not think it has much to add in terms of diagnosis. A Gastrografin can help as a bowel regimen to clear out the colon and can provide a sense of reassurance if needed. At this time I think let us try the enemas and see how he does I will reassess him in the morning. Quality VTE Deep Vein Thrombosis/Pulmonary Embolism Present on Admission: No
[2023-04-27] MEDS: TAMSULOSIN 0.4 MG CAPSULE PO (21:44)
[2023-04-28 07:45] VITALS: BP 143/73; PULSE 74; RESP 16; O2SAT 98
[2023-04-28 08:37] VITALS: BP 143/73; PULSE 74
[2023-04-28] MEDS: ATORVASTATIN 20 MG TABLET PO (08:37)
[2023-04-28] MEDS: lisinopriL 5 MG TABLET PO (08:37)
[2023-04-28 09:10] VITALS: BP 173/88; PULSE 78; O2SAT 96
[2023-04-28 09:48] VITALS: BP 182/79; PULSE 70; RESP 18; TEMP 36.5; O2SAT 96
--- NOTE | 2023-04-28 13:34 | CM.DANOTE ---
Initial DCP Assessment Note Pt is a 77 yo male, resident of [place], presents with acute abd pain. According to Dr Camacho, partial SBO and constipation are likely etiology Patient's diet is being advanced today, enema ordered. Discharge likely over the next 24 hrs if sx improve PCP: Eduardo Torres Payer: Iam RAMON Reviewed chart, met a/patient and spouse, introduced self and role. 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 Patient and spouse appreciative for the visit No barriers identified at this time to patient's safe discharge home w/spouse to assist as needed; likely close outpatient f/u recommended. TAYLOR Machuca Discharge Planning/Care Management CM Discharge Assessment Start: 04/28/23 13:27 Freq: Status: Active Protocol: Document 04/28/23 13:32 MELISSA (Rec: 04/28/23 13:34 [email or web address] [id number]) Discharge Planning Assessment Assigned Agricultural Purchasing Agent TAYLOR Solorzano DPOA/Assigned Designee Name Carmelita Boggs, spouse Contact Information [phone] Advance Directives? Yes: POLST Advance Directives on File Yes History Provided By Patient,Medical Record Prior Living Arrangements House Household Members spouse Type of transporation used prior to Drives own vehicle admit Independent with ADL's Yes Is patient alert and oriented? Yes Barriers to Discharge No Comment Home w/spouse upon discharge Discharge Plan Home Transportation Arrangement spouse Referrals Initiated None needed
--- NOTE | 2023-04-28 15:12 | PM.PN.1 ---
Subjective Subjective Date Patient Seen: 04/28/23 Time Patient Seen: 12:30 Interval history: Doing well had 2 large bowel movements had an episode of feeling palpitations but feeling better now. He ate a regular diet for lunch and denies any nausea at all his abdomen is much less distended and he denies abdominal pain. He had some enemas last night and those went well Exam Vital Signs (past 8 hours): - 04/28/23 07:45 04/28/23 08:37 04/28/23 09:48 Temperature 97.7 F Pulse Rate 74 74 70 Respiratory Rate 16 18 Blood Pressure 143/73 H 143/73 H 182/79 H Pulse Oximetry 98 96 Oxygen Flow Rate 0 0 04/28/23 09:10 Temperature Pulse Rate 78 Respiratory Rate Blood Pressure 173/88 H Pulse Oximetry 96 Oxygen Flow Rate 0 Oxygen Delivery Method Room Air Oxygen Flow Rate 0 Narrative Exam Narrative: Awake alert oriented in no acute distress healthy-appearing and pleasant The abdomen is soft decreased distention markedly though still mild distention is present. Objective Labs 04/27/23 15:02 04/27/23 15:02 Labs: Laboratory Results - last 24 hr 04/27/23 15:02 Sodium 137 Potassium 3.7 Chloride 104 Carbon Dioxide 24 BUN 14 Creatinine 0.65 L Estimated GFR > 60 BUN/Creatinine Ratio 21.5 Glucose 107 Calcium 8.4 PFSH Medical History BPH w urinary obs/LUTS Enlarged prostate H/O nephrolithotomy with removal of calculi Heart attack History of nephrolithiasis Hypercholesteremia Kidney stones Renal disease Surgical History History of coronary artery stent placement Family History Mother Cancer CAD in [place] artery Hypertension Social History marital status: number of children: 1 household members: spouse Smoking Status: Former smoker alcohol intake: current Type(s) of exercise: walking frequency: 1-2 times per week Assessment & Plan Assessment and plan (1) Constipation: Problem details: Seen on CT scan Status: Acute (2) Abdominal pain: Status: Acute (3) Partial small bowel obstruction: Status: Acute (4) Abdominal distention: Status: Acute Assessment & Plan narrative: Overall improved with enemas and bowel movements. At this time he is tolerating regular food and if he continues to feel well he may be discharged today versus tomorrow morning. I have recommended and spent several minutes counseling him about fiber supplementation. I also counseled him about a bowel regimen including Colace twice a day to prevent constipation and fiber supplementation hopefully ongoing for the rest of his life to prevent constipation and then use of MiraLax just as needed but not as a daily medication. I also counseled him that he can call our office with any questions or concerns and we can help him but he really only needs to follow up as needed. Quality VTE Deep Vein Thrombosis/Pulmonary Embolism Present on Admission: No
--- NOTE | 2023-04-28 15:21 | P.DS_ITS ---
History of Present Illness History of Present Illness Date Patient Seen: 04/28/23 Time Patient Seen: 15:22 Chief complaint: here yesterday symptoms are the same or worse Narrative: 77-year-old male who lives on [facility] started to have abdominal pain starting Sunday this week. Time he felt some nausea and described the pain as a ?bandlike pressure? across his abdomen. That night he did have some emesis with bile and acid. He had some night sweats as well. Sunday the pain continued and he was not able to eat. Time he did he was very nauseous. On Sunday and he was increasingly distended with continuing pain and decided to come to the emergency room for an evaluation. Was seen and had a CT scan that showed a possible partial small bowel obstruction and was sent home with return instructions. He has now returned to the emergency room today because his symptoms are not improved. He has been passing gas and yesterday he felt that he had a period of time where he had not been passing gas but he is currently passing flatus. He endorses that his nausea is now improved as well as his pain. His last good bowel movement however was not since Sunday. He denies a history of struggle with constipation. In the last 2-3 weeks he has been having some hard dry poops but has not had any recent changes in medications. He does take several heavy metal supplements but he has been on those for at least a year. He does have a urologist and his main complaint has been nocturia for which he takes tamsulosin. He is had postvoid residuals in the past that have not been a problem. He denies suprapubic pain or difficulty otherwise with urination. Never had abdominal surgery before never had symptoms like this before. Discharge Providers Provider Date of admission: 04/27/23 14:53 Discharge Date: 04/28/23 Primary care physician: Eduardo Torres MD Discharge provider: Ana Camacho MD Summary Hospital Course Discharge Diagnosis: Constipation and partial bowel obstruction Hospital Course: Patient was administered enemas overnight with large hard stool balls that were returned. Subsequently the patient felt markedly improved with decreased disten tion and tolerated a regular diet. He was counseled about fiber supplementation as well as some of the other supplements that he is taking that may have caused the constipation. Upon discharge she was tolerating regular food and had no abdominal pain. Status at Discharge Cognitive/behavioral status at discharge: at baseline, oriented Functional status at discharge: independent ambulation Overall status at discharge: patient is back to baseline Time Spent with Patient Time spent: Less than 30 minutes Exam Vital Signs (past 8 hours): - 04/28/23 07:45 04/28/23 08:37 04/28/23 09:48 Temperature 97.7 F Pulse Rate 74 74 70 Respiratory Rate 16 18 Blood Pressure 143/73 H 143/73 H 182/79 H Pulse Oximetry 98 96 Oxygen Flow Rate 0 0 04/28/23 09:10 Temperature Pulse Rate 78 Respiratory Rate Blood Pressure 173/88 H Pulse Oximetry 96 Oxygen Flow Rate 0 Oxygen Delivery Method Room Air Oxygen Flow Rate 0 Objective Labs 04/27/23 15:02 04/27/23 15:02 Labs: Laboratory Results - last 24 hr 04/27/23 15:02 Sodium 137 Potassium 3.7 Chloride 104 Carbon Dioxide 24 BUN 14 Creatinine 0.65 L Estimated GFR > 60 BUN/Creatinine Ratio 21.5 Glucose 107 Calcium 8.4 PFSH Medical History BPH w urinary obs/LUTS Enlarged prostate H/O nephrolithotomy with removal of calculi Heart attack History of nephrolithiasis Hypercholesteremia Kidney stones Renal disease Surgical History History of coronary artery stent placement Family History Mother Cancer CAD in [place] artery Hypertension Social History marital status: number of children: 1 household members: spouse Smoking Status: Former smoker alcohol intake: current Type(s) of exercise: walking frequency: 1-2 times per week Discharge Plan Discharge Plan Patient Disposition: Home Provider Discharge Comment: I recommend a fiber supplement twice daily to prevent constipation in general. I might consider stopping some of the supplements that you are taking with magnesium however after you start your bowel regimen you can make a decision of the risks versus benefits. For the next 1-2 weeks I would take Colace twice daily to prevent constipation. If you notice that your bowels are not moving regularly and it has been more than 3 days you might consider taking a dose or 2 of MiraLax to stimulate your colon. MiraLax should not be taken daily and only as needed to get out of a constipated state. Fiber is really the best type of substance to take daily to prevent constipation. Is a natural part of the human diet and the colon needs 35 g of fiber a day to operate and function optimally. For any patient with polyps, diverticula, hemorrhoids or other colon problems (e.g. diarrhea, constipation) I advise them to start a fiber supplement daily. I recommend the powder form that is taken with a tall glass of water. I recommend taking this once or twice a day before meals. I also strongly recommend that you give daily fiber therapy at least a 1-2 week trial before you decide it is not working for you. This is because some of the initial symptoms of urgency or flatulence improve significantly and many patients experience huge benefits after that initial time. Discharge orders & Medications Prescriptions: New docusate sodium 100 mg Capsule 100 mg PO BID Qty: 30 0RF polyethylene glycol 3350 17 gram Powder In Packet 17 g PO BID PRN (Reason: Constipation) Qty: 30 0RF Rx Instructions: Take only as needed. Available [id number] Fiber (psyllium husk-sugar) 3.4 gram/7 gram powder 1 tbsp PO BID Qty: 822 0RF Continued cholecalciferol (vitamin D3) [Vitamin D3] 50 mcg (2,000 unit) Capsule 50 mcg PO DAILY vitamin K2 40 mcg Tablet 40 mcg PO DAILY rosuvastatin 5 mg tablet 10 mg PO DAILY lisinopril 5 mg Tablet 5 mg PO DAILY tamsulosin 0.4 mg capsule 0.4 mg PO BEDTIME Qty: 180 3RF Discontinued magnesium, potassium aspartate 250-250 mg Tablet 1 tab PO DAILY Hany-Mag Complex 300 mg-150 mg- 400 unit Tablet 1 tab PO DAILY Follow up/Referrals: Ana Camacho MD [Physician] - (You may call the office after hours and go through the answering service with any questions or concerns. You only need to follow-up with Dr. Motley [facility] as needed. The please do not hesitate to call if there are any questions or concerns.) Eduardo Torres MD [Primary Care Provider] - Diet/Activity/Treatments Diet: Diet as Tolerated and Regular Skin/Wound/Dressing Care Report to your healthcare provider any signs of infection, such as:: chills, fe rauliot, night sweats and increased pain Visit Report/Discharge Packet Instructions: Small Bowel Obstruction Discharge Data Primary Care Provider: Eduardo Torres Attending Provider: Ana Camacho Admit Date/Time: 04/27/23 14:53 Discharges patient from system. Discharge Date/Time: 04/28/23 16:07 Quality VTE Deep Vein Thrombosis/Pulmonary Embolism Present on Admission: No
== END 2023-04-28 16:07 | disposition home or self-care (01) ==
LOC: ED 14:52 → AC 14:58
PROVIDERS: Admitting Provider Surgery; Emergency Provider Emergency Medicine; PCP Family Medicine; Referring Provider Emergency Medicine; Visit Provider Surgery
DX: K56.609 Unspecified intestinal obstruction, unspecified as to partial versus complete obstruction (principal)
CPT/HCPCS: 36415; 74018; 80048; 85025; 93005; 93010; 96360; 96361; 99222; 99238; 99284; G0378

== ENCOUNTER → 2023-05-17 12:31 | Outpatient (CLI) | payer OTHER, SELFPAY ==
[2023-04-27 15:37] VITALS: BMI 27.3
[2023-05-17 15:24] LABS: Prostate Specific Antigen 2.18 ng/mL (0.10-4.00)
== END ==
PROVIDERS: PCP Family Medicine; Referring Provider Specialist; Visit Provider Specialist
DX: N40.1 Benign prostatic hyperplasia with lower urinary tract symptoms (principal); N13.8 Other obstructive and reflux uropathy
CPT/HCPCS: 36415; 84153

== ENCOUNTER → 2023-05-23 10:51 | Outpatient (CLI) | payer OTHER, SELFPAY ==
[2023-04-27 15:37] VITALS: BMI 27.3
== END ==
PROVIDERS: PCP Family Medicine; Visit Provider Specialist
DX: N40.1 Benign prostatic hyperplasia with lower urinary tract symptoms (principal); N13.8 Other obstructive and reflux uropathy; Z87.442 Personal history of urinary calculi
CPT/HCPCS: 51798; 81002; 87086; 99214

== ENCOUNTER → 2023-07-02 11:05 | Outpatient (CLI) | payer OTHER, SELFPAY ==
--- NOTE | 2023-07-02 11:07 | DI.RAD.S_ITS ---
PROCEDURE: XR CHEST 2V INDICATIONS: SOBOE TECHNIQUE: 2 views of the chest were acquired. COMPARISON: [facility], , CHEST 1 VIEW, 10/12/2014, 20:19. FINDINGS: Surgical changes and devices: None. Lungs and pleura: Atelectasis is noted at the right lung base which is new when compared with the prior film from October 12, 2014. The lungs are otherwise clear. No pleural effusion or pneumothorax. Mediastinum: Mediastinal contours are normal. Heart size is normal. Bones and chest wall: No suspicious bony abnormalities. Soft tissues appear unremarkable. IMPRESSION: 1. Right lower lobe atelectasis. Short interval follow-up is recommended to ensure resolution of this finding. If finding persists, CT of the chest is recommended to exclude central obstructing mass. Dictated by: Sharda Aquino M.D. on 07/02/2023 at 12:17 Approved by: Sharda Aquino M.D. on 07/02/2023 at 12:18
== END ==
PROVIDERS: PCP Family Medicine; Referring Provider Family Medicine; Visit Provider Family Medicine
DX: R06.02 Shortness of breath (principal); J98.11 Atelectasis
CPT/HCPCS: 71046

== ENCOUNTER → 2023-07-12 09:51 | Outpatient (CLI) | payer OTHER, SELFPAY ==
--- NOTE | 2023-07-17 00:11 | DI.NM.S_ITS ---
DATE OF SERVICE: 07/12/2023 PROCEDURE: Pharmacologic vasodilator stress and rest myocardial perfusion imaging with gating to assess ejection fraction and regional wall motion. ORDERING PROVIDER: Dr. Eduardo Torres. INDICATIONS: The patient is a 78-year-old male with a history of myocardial infarction and stenting, who presents with exertional dyspnea. PHARMACOLOGIC STRESS: Per protocol, 0.4 mg of regadenoson was infused with a normal hemodynamic response and mild dyspnea. He had no chest discomfort. His resting ECG has a right bundle branch block with normal ST segments. There are no significant ST-segment shifts or arrhythmias with stress. Per protocol, 25.9 millicuries of technetium-99m Myoview was injected and he was imaged 10 minutes later using a gated SPECT acquisition protocol. Four days prior, while at rest, he had been injected with 25.3 millicuries of technetium-99m Myoview and was imaged 20 minutes later, again using a gated SPECT acquisition protocol. FINDINGS: 1. Raw data: There is fair myocardial tracer uptake although significant subdiaphragmatic tracer activity, specifically adjacent to the inferior and inferolateral wall on both the stress and rest images, complicate the interpretation. There is no significant motion artifact. The patient was unable to lie prone to assess for attenuation artifact. The lung/heart ratio is at the upper limits of normal at 0.42, but is nonspecific with vasodilators stress. The TID ratio is normal at 0.94. 2. Quantitated gated SPECT: Post-stress ejection fraction is estimated at 70% with a suggestion of inferior wall hypokinesis at the base. The resting ejection fraction is 67% with a similar contraction pattern. Resting end- diastolic volume is normal at 108 mL. 3. Myocardial perfusion imaging: Post-stress supine images show a fairly dense perfusion defect in the inferior wall from apex to base, but no other perfusion defects. Unfortunately, the patient was unable to lie prone to assess for any diaphragmatic attenuation. The resting images show a similar perfusion pattern although with slight improvement at the periphery of the defect, but complicated by the subdiaphragmatic tracer activity with an overflow of counts into this region that may account for the reversibility. Even so, this is a predominantly fixed defect. IMPRESSION: 1. Abnormal myocardial perfusion study. 2. Predominantly fixed inferior wall perfusion defect with perhaps slight reversibility at the periphery which could indicate a previous transmural infarction with slight yuli-infarct ischemia, although the reversibility may be due to overflow of tracer activity from the subdiaphragmatic activity. There is no significant reversibility, however, to suggest significant ischemia. 3. Preserved left ventricular systolic function with hypokinesis at the base of the inferior wall with normal left ventricular volumes. 4. No angina or ECG evidence of ischemia with pharmacologic vasodilator stress. 5. Compared to the previous myocardial perfusion study on 10/13/2014, a fixed inferior defect was noted previously that persisted to a slight degree with prone imaging. This defect appears more profound on today's study. The previous ejection fraction was 66% to 72% with an end-diastolic volume of 102 mL, suggesting the absence of any significant change. Joe Boggs - AN/chato/ARASH doc#: [id number]/job#: [id number] dd: 07/16/2023 16:21:00 dt: 07/16/2023 23:48:00 DICTATING MD/COPIES TO: Timoteo Marr MD; Eduardo Torres M.D. COPIES MNE: WESTLEY;
== END ==
PROVIDERS: PCP Family Medicine; Referring Provider Family Medicine; Visit Provider Family Medicine
DX: R06.02 Shortness of breath (principal); I10 Essential (primary) hypertension; R93.1 Abnormal findings on diagnostic imaging of heart and coronary circulation
CPT/HCPCS: 78452; 93017; A9502; J2785

== ENCOUNTER → 2023-07-16 10:24 | Outpatient (CLI) | payer OTHER, SELFPAY ==
--- NOTE | 2023-07-16 10:27 | DI.RAD.S_ITS ---
PROCEDURE: XR CHEST 2V INDICATIONS: ATELECTASIS OF RIGHT LUNG TECHNIQUE: 2 views of the chest were acquired. COMPARISON: [facility], CT, CT ABDOMEN PELVIS W CON, 04/26/2023, 15:38. [facility], CR, XR CHEST 2V, 07/02/2023, 11:18. [facility], CR, CHEST 1 VIEW, 10/12/2014, 20:19. FINDINGS: Surgical changes and devices: None. Lungs and pleura: Lungs are clear. No pleural effusions or pneumothorax. Right lower lobe atelectasis is unchanged. Mediastinum: Mediastinal contours are normal. Heart size is normal. Bones and chest wall: No suspicious bony abnormalities. Soft tissues appear unremarkable. IMPRESSION: Unchanged right lower lobe atelectasis. Dictated by: Abhijit Ugalde M.D. on 07/16/2023 at 11:05 Approved by: Abhijit Ugalde M.D. on 07/16/2023 at 11:13
== END ==
PROVIDERS: PCP Family Medicine; Referring Provider Family Medicine; Visit Provider Family Medicine
DX: J98.11 Atelectasis (principal)
CPT/HCPCS: 71046

== ENCOUNTER → 2023-08-03 12:31 | Outpatient (CLI) | payer OTHER, SELFPAY | PROVIDERS: PCP Family Medicine; Referring Provider Family Medicine; Visit Provider Family Medicine | DX: R06.02 Shortness of breath (principal); Z87.891 Personal history of nicotine dependence; J98.8 Other specified respiratory disorders | CPT/HCPCS: 94060; 94726; 94729 ==

== ENCOUNTER → 2023-10-30 09:50 | Outpatient (CLI) | payer OTHER, SELFPAY ==
[2023-09-14 10:09] VITALS: BMI 27.3
[2023-10-30 12:23] LABS: Appearance Urine UA CLEAR; Bilirubin Urine UA NEGATIVE (NEGATIVE); Color Urine UA YELLOW; Glucose Urine UA NEGATIVE (Negative); Ketones Urine UA NEGATIVE (NEGATIVE); Leukocyte Esterase Urine UA 2+ (NEGATIVE); Nitrite Urine UA POSITIVE (Negative); Occult Blood Urine UA 3+ (Negative); Protein Urine UA 2+ (Negative); Specific Gravity Urine UA 1.025 (1.000-1.035); Urobilinogen Urine UA 0.2 E.U./dL (0.2); pH Urine UA 6.5 (4.5-8.0)
[2023-10-30 12:41] LABS: Bacteria Urine Few (2-10); Culture Indicated Urine Specimen Cultured; RBC Urine 10-30/HPF (0-5/HPF); Squamous Epithelial Cell Urine None Seen (0-5/HPF); Urine Volume 10mL (spun); WBC Urine 5-10/HPF (0-5/HPF)
== END ==
PROVIDERS: PCP Family Medicine; Referring Provider Specialist; Visit Provider Specialist
DX: N21.0 Calculus in bladder (principal); N40.1 Benign prostatic hyperplasia with lower urinary tract symptoms; N13.8 Other obstructive and reflux uropathy
CPT/HCPCS: 81001; 87077; 87086; 87147; 87186

== ENCOUNTER 2023-11-29 12:30 | Outpatient (RCR) | payer OTHER, SELFPAY ==
[2023-08-14 14:12] VITALS: BMI 27.3
== END 2023-11-29 14:00 ==
LOC: PUL 12:30
PROVIDERS: PCP Family Medicine; Referring Provider Family Medicine; Visit Provider Family Medicine
DX: R06.02 Shortness of breath (principal); J98.11 Atelectasis
CPT/HCPCS: G0237; G0238

== ENCOUNTER → 2023-12-04 11:56 | Outpatient (CLI) | payer OTHER, SELFPAY ==
[2023-11-20 15:45] VITALS: BMI 27.3
[2023-12-04 13:31] LABS: Allen Test for ABG Passed? Yes, Passed; Blood Gas Collection Site Left Radial; Fractionated Inspired Oxygen 20; HCO3 ABG 31 mmol/L (23-27); Oxygen Saturation ABG 96 % (95-100); PO2 ABG 82 mmHg (80-100); TCO2 ABG 32 mmol/L (23-27); pH ABG 7.37 (7.35-7.45)
[2023-12-04 13:32] LABS: PCO2 ABG 52.4 mmHg (35-45)
== END ==
PROVIDERS: PCP Family Medicine; Referring Provider Family Medicine; Visit Provider Family Medicine
DX: R06.02 Shortness of breath (principal); J98.11 Atelectasis; F17.210 Nicotine dependence, cigarettes, uncomplicated
CPT/HCPCS: 36600; 82805

== ENCOUNTER → 2023-12-07 09:32 | Outpatient (CLI) | payer OTHER, SELFPAY ==
[2023-11-20 15:45] VITALS: BMI 27.3
== END ==
LOC: RESP 09:33
PROVIDERS: PCP Family Medicine; Referring Provider Family Medicine; Visit Provider Family Medicine
DX: R06.02 Shortness of breath (principal); J98.11 Atelectasis; Z87.891 Personal history of nicotine dependence; J98.8 Other specified respiratory disorders
CPT/HCPCS: 94060; 94726; 94729

== ENCOUNTER 2024-01-07 11:19 | Day surgery (SDC) | payer OTHER, SELFPAY ==
[2023-12-18 09:51] VITALS: BMI 27.3
[2024-01-03 10:24] VITALS: BMI 24.3
[2024-01-07] VITALS (16 sets, daily range): BP systolic 96–197; BP diastolic 47–119; PULSE 69–94; RESP 14–30; TEMP 36.1–36.9; O2SAT 92–99; BMI 23.8
--- NOTE | 2024-01-07 | PATH_ITS ---
[facility] Accession Number: [id number] No. of containers..01 Tissue . 01 Material submitted: . prostate - FOREIGN BODY PROSTATE X3 . 01 Diagnosis: FOREIGN BODY PROSTATE X3, REMOVAL: Three silver to brown metallic clips (for gross examination only). [facility] 01/10/2024 1059 Local . 01 Electronically signed: . Bita Stewart MD, Pathologist NPI- [id number] . 01 Gross description: . Received in formalin with two identifiers and foreign body prostate x3 for gross, are three silver to brown metallic clips, all measuring 0.7 cm in length by 0.1 cm in diameter, with a scant amount of attached soft tissue. Brown roughened areas are identified possibly consistent with corrosion. No inscriptions are identified and no sections are submitted. The specimen is for gross only evaluation. ([id number]) /MRV 01/09/2024 1352 Local . 01 Pathologist provided ICD-10: N40.1 . 01 CPT . 990004 Specimen Comment: A courtesy copy of this report has been sent to [phone] Performed at: 01 [facility] [address] [place] [address], [place], [place] [id number] MD Lenin Martinez MD Phone: [phone]
[2024-01-07] MEDS: LACTATED RINGERS 1,000 ML 42 ML IV (11:39)
--- NOTE | 2024-01-07 12:27 | PM.PREOP ---
Pre-operative Note Interval Note History & Physical reviewed/Exam performed by Physician: Yes Changes to H&P: No
[2024-01-07] MEDS: CEFAZOLIN 2 GM/100 ML PREMIX 100 ML IV (13:00)
[2024-01-07] MEDS: TRANEXAMIC ACID 1,000 MG in SODIUM CHLORIDE 0.9% 100 ML 200 MG IV ×2 (13:10→14:00)
--- NOTE | 2024-01-07 13:24 | SUR.OPER ---
Lithotomy on padded OR bed, head on pillow, arms secured on padded arm boards at <90 degrees abduction. Legs secured in padded yellow fins stirrups. Assisted in positioning by surgeon.
--- NOTE | 2024-01-07 14:35 | PM.OP.1 ---
Operative Date/Time/Diagnoses Date of procedure: 01/07/24 Time of procedure: 14:25 Pre-op diagnosis: 1. Benign prostate hyperplasia. 2. Failed UroLift procedure. 3. Failure medical therapy. Procedure & Clinicians Procedure: 1. TRUS for diagnostic hand guidance. 2. Cystoscopy/Transurethral resection of prostate. 3. Cystoscopy/removal foreign body x4 (UroLift devices). 4. AQUABLATION. Same procedure as scheduled: Yes Indications: 1. Benign prostate. 2. Failure of UroLift procedure. 3. Failure medical therapy Surgeon: Joana Foy Click Yes if Unassisted: Yes Anesthesia Type: General Operative Notes Findings: 1. Urethra-normal caliber without annular stricture or. 2. External sphincter-normal overlying urothelium and vascularity. 3. 5+ cm length prostate urethra with associated trilobar hyperplasia. 4. Following Aquablation four UroLift devices were identified, 2 on each the anterior lateral proximal lateral lobe, and 2 on each the anterolateral mid prostate fossa. 5. Bladder-severe trabeculation and multiple cellule formation. Normal orifices bilaterally with clear efflux. Closure Type: not applicable Specimen(s): other (UroLift devices) Applied: catheter ([address] hematuria catheter to gravity drainage.) Estimated Blood Loss (mL): 5 Blood products transfused: none Procedure in detail: The patient was positioned supine was administered general anesthesia. He was then repositioned in semi-lithotomy in the lower abdomen, genitalia, and groin were then prepped and draped in sterile fashion. 60 cc lubricant were then instilled in the rectal vault. The transrectal ultrasound probe was then advanced into the rectal vault and a parallel angle to the floor and advanced gradually under ultrasonographic guidance. Anatomical landmarks including the most proximal origin of prostate tissue, the bladder neck, the mid prostate and the verumontanum were then identified and labeled. The aqua beam treatment scope was then advanced to the lower urinary tract and advanced forward under direct visualization and ultrasonographic guidance. The aqua beam device was then positioned in oriented congruent with that of the TRUS probe. Orientation of the treatment nodule at the 12 position was then confirmed. Water jet positioning was then confirmed at the 3, 6, and 9 positions. Next, the endoscopic lens was advanced distally to a level just proximal to the external sphincter and confirmed ultrasonographically. Visualization of the greatest diameter prostate circumference by TRUS was then undertaken at a point near the mid prostate. Beam length and radial treatment contours were then established and marked at the 3, 6, and 9 positions. The TRUS probe was then advanced so that the bladder and bladder wall could be visualized. Treatment contours were then developed in the sagittal plane in the midline at the proximal margin of prostate tissue, the bladder neck, the mid prostate, in the aqua beam scope lens tip. Treatment plan was then confirmed. Aquablation was then commenced under endoscopic and ultrasonographic guidance through the 1st pass. The verumontanum was preserved. Treatment contour plan was then adjusted as needed in the sagittal plane. The 2nd Aquablation pass was then commenced following confirmation of the updated treatment plan. The aqua beam treatment probe was then removed and the TRUS probe was then repositioned by lowering the handle towards the floor. The resectoscope was then advanced under direct visualization with the findings as described above. The Ellik evacuator was utilized to remove just a very few small clots and some tissue fragments. The heavy resecting loop was then fitted to the working element of the scope and a region of treated prostate tissue approximately 2 cm in length at the bladder neck and distally was then resected to visible fibers. Focal bladder neck cautery was then conducted within the limits of Aquablation treatment from approximately the 2 to 10 position. Hemostasis was excellent. A careful search for exposed UroLift devices was then undertaken with the findings and locations as noted above under FINDINGS. The recovered devices were then submitted to pathology for gross only examination. Resectoscope was then advanced into the bladder and again the Ellik evacuator was utilized to remove a few additional small tissue fragments. The remainder were removed mechanically with the assistance of the resecting loop. The bladder was then left partially filled and the resectoscope was removed. A [address] hematuria catheter was then advanced into lower urinary tract then into the bladder over a catheter guide with ultrasonographic guidance. The balloon was inflated to 30 cc and gentle traction was applied to snug the balloon to the bladder neck under ultrasonographic imaging. The three-way Knox catheter was then connected to normal saline continuous bladder irrigation. The patient was then repositioned in supine, awakened common transported to recovery in stable condition. Complications: none Post-operative Condition: stable Disposition: PACU Plan for aftercare: Admit to acute care.
[2024-01-07] MEDS: OXYCODONE IR 5 MG TABLET PO ×2 (15:25→20:16)
--- NOTE | 2024-01-07 15:32 | SUR.PHASEI ---
Report called to Christina.
--- NOTE | 2024-01-07 15:59 | SUR.PHASEI ---
Patient transferred to the floor with his belongings bag, on a stretcher. He was able to transfer himself to the bed with SBA. IV patent. Knox patient with grade II-III output, continuous irrigation infusing. Bedside report given to Christina.
[2024-01-07] MEDS: LACTATED RINGERS 1,000 ML 125 ML IV ×2 (16:00→23:29)
[2024-01-07] MEDS: ALBUTEROL 2.5 MG/3 ML NEB (ADULT) INH (21:04)
[2024-01-07] MEDS: BUDESONIDE 0.5 MG/2 ML NEB INH (21:04)
[2024-01-08] MEDS: OXYCODONE IR 5 MG TABLET PO ×3 (02:41→13:08)
--- NOTE | 2024-01-08 06:59 | PC.NURSE ---
shift superintendent caustic cresylate RN note pt resting quietly overnight, c/o occasional bladder pain, prn meds with effect, CBI titrated to keep urine clear, irrigated intermittently for small clots, pt bladder scanned post irrigation and <100ml of urine remained in bladder with good flow returned to CBI, maintain accurate I&Os, call vieira within reach, bed alarm on
[2024-01-08] MEDS: BUDESONIDE 0.5 MG/2 ML NEB INH (07:22)
[2024-01-08] MEDS: ALBUTEROL 2.5 MG/3 ML NEB (ADULT) INH (07:22)
[2024-01-08 07:37] VITALS: PULSE 79; RESP 18; O2SAT 99
[2024-01-08 07:40] VITALS: O2SAT 93
[2024-01-08 08:30] VITALS: BP 120/50; PULSE 82; RESP 18; TEMP 36.7; O2SAT 94
[2024-01-08] MEDS: DOCUSATE 100 MG CAPSULE PO (08:54)
[2024-01-08] MEDS: CHOLECALCIFEROL (VITAMIN D3) 1,000 UNIT TABLET 2000 UNIT PO (08:54)
[2024-01-08] MEDS: PSYLLIUM HUSK 1 PACKET PO (08:54)
[2024-01-08] MEDS: FINASTERIDE 5 MG TABLET PO (08:56)
[2024-01-08] MEDS: ACETAMINOPHEN 325 MG TABLET 650 MG PO (11:17)
--- NOTE | 2024-01-08 12:43 | CM.DANOTE ---
DCP Assessment note- Brief Pt is a 78yo M here under the care of Dr. Foy following benign prostate hyperplasia. pt is POD 1. PCP Brian Payer [employer] medicare and self pay DIRECTOR OF MARKETING ANALYTICS reviewed EMR. Per RN report, pt lives with sposue in [place]. Indep at baseline. No obvious CM needs. No obvious CM needs per chart review. During pt's last admission in 2022, pt dc'd home with no needs. Plan: anticipate home when stable with spouse support. No identified barriers to safe dc home. Cm team will follow as needed. TAYLOR Bosch Discharge Planning/Care Management CM Discharge Assessment Start: 01/08/24 11:28 Freq: Status: Active Protocol: Document 01/08/24 11:28 SL (Rec: 01/08/24 12:43 [id number]) Discharge Planning Assessment Assigned Lever Tender TAYLOR Hinojosa DPOA/Assigned Designee Name Efrain, spouse Contact Information [phone] Advance Directives? Yes: POLST Advance Directives on File Yes History Provided By Patient,Medical Record Prior Living Arrangements House Household Members spouse Type of transporation used prior to Drives own vehicle admit Independent with ADL's Yes Is patient alert and oriented? Yes Comment Home w/spouse upon discharge Discharge Plan Home Transportation Arrangement spouse Referrals Initiated None needed Whiteboard Updated in Patient Room with No name and ext. 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 Comment Pulmonary visit @ 12/19/23 in [facility], put in surgery folder Primary Language Bahamian Preferred Language Bahamian Auto Design Checker Required No Height 170.18 cm Weight 70.307 kg Body Mass Index (BMI) 24.3 Hx Anesthesia Reactions No Hx Family Anesthesia Reaction No Hx Malignant Hyperthermia No Hx Blood Transfusion Reaction No Cissp No alcohol intake current alcohol intake frequency holidays/special occasions only Smoking Status Former smoker Tobacco type cigarettes Substance Use Type does not use Does patient have MALDONADO/SOB Yes: MALDONADO CPAP/BIPAP use not prescribed Hx SOB Yes: MALDONADO 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 Yes Lives With spouse Patient Discharge Plan Description Return Home Do You Have Any Spiritual Beliefs That No May Affect Your HC Choices? Do You Have Any Cultural Practices That No May Affect Your HC Choices? Emergency Contact Name EFRAIN Emergency Contact Advance Directives? Yes: POL Advance Directives on File Yes
--- NOTE | 2024-01-08 14:26 | PC.NURSE ---
Discharge note: Patient teaching done at bedside with present. Patient teaching done on how to empty bag, monitoring urine for amount and color and proper cleaning of cath. Patient states they will no be switching from large collection bag to leg bag and have declined teaching on that subject. Patient and state understanding of care and plan. They are both aware to call and sched. appt with Urology to have cath removed. Patient was escorted down to private vehicle by SPINNER HAND on shift. in tow with belongings. Patient and state understanding of all teaching and all questions and concerns were addressed.
--- NOTE | 2024-01-09 09:03 | P.DS_ITS ---
History of Present Illness History of Present Illness Date Patient Seen: 01/08/24 Time Patient Seen: 12:15 Chief complaint: Prostate resection w/aquablation *OPB* Narrative: The patient is a 78-year-old gentleman admitted on 01/07 2024 for scheduled Aquablation. He has had a long history of advancing lower urinary tract symptoms and bladder outlet obstruction due to prostate. He is status post failed UroLift procedure. He remains highly dissatisfied on pharmacologic therapy. Following thorough lower urinary tract evaluation and informed consent the patient was admitted for [id number] for scheduled Aquablation. Discharge Providers Provider Date of admission: 01/07/2024 Discharge Date: 01/08/24 Primary care physician: Eduardo Torres MD Discharge provider: Joana Foy MD Summary Hospital Course Discharge Diagnosis: 1. Benign prostate hyperplasia. 2. Failed UroLift procedure. 3. Failure medical therapy. Hospital Course: Patient was admitted on the morning of 01/07/2024 and underwent uncomplicated Aquablation under general anesthesia. His postoperative course was unremarkable in that he tolerated a general diet immediately, was able to transfer and ambulate without assistance, and postoperative discomfort was adequately managed with prescribed narcotic analgesics. The morning of 01/08/2024, continuous bladder irrigation with normal saline was discontinued. Reassessment approximately 4 hours later revealed nearly straw- colored, light urine without visible bladder clot. Early afternoon 01/08/2024 the patient was stable for discharge. Routine postoperative hygiene, activity restrictions, and follow-up explained. Exam Vital Signs (past 8 hours): Oxygen Delivery Method Room Air Oxygen Flow Rate 0 Narrative Exam Narrative: Patient is sitting upright in the bedside chair enjoying his lunch. He was in no distress. Abdomen-nondistended and nontender. Genitalia-indwelling three-way Knox catheter draining light, nearly straw- colored urine without evidence of hematuria or clots. [facility] Medical History (Updated 01/02/24 @ 17:31 by Joana Foy MD) Incomplete bladder emptying Urinary retention Bladder calculi History of nephrolithiasis BPH w urinary obs/LUTS H/O nephrolithotomy with removal of calculi Renal disease Heart attack Kidney stones Enlarged prostate Hypercholesteremia Surgical History History of coronary artery stent placement Family History Mother Cancer CAD in [place] artery Hypertension Social History marital status: number of children: 1 household members: spouse Smoking Status: Former smoker alcohol intake: current Type(s) of exercise: walking frequency: 1-2 times per week Discharge Assessment & Plan Assessment and Plan Assessment: 1. Stable postop day 1 status post Aquablation. 2. Catheter. Plan of Treatment: 1. Discharge home today. 2. Catheter care use instruction provided. 3. Supervise voiding trial in the urology clinical be scheduled for 01/10/2024. Discharge Plan Discharge Plan Patient Disposition: Home Provider Discharge Comment: Contact the urology clinic after discharge to schedule your follow-up appointment in the morning of 01/10/2024 as discussed. Discharge orders & Medications Discharge Orders: Discharge (Order); Ordered 01/08/24 Ordered By: Joana Foy Prescriptions: New cephalexin 250 mg capsule 250 mg PO BID Qty: 10 0RF oxycodone 5 mg tablet 5 mg PO Q6H PRN (Reason: pain) Qty: 10 0RF Continued cholecalciferol (vitamin D3) [Vitamin D3] 50 mcg (2,000 unit) Capsule 50 mcg PO DAILY docusate sodium 100 mg Capsule 100 mg PO BID Qty: 30 0RF Patient Comments: Taking every other day ketoconazole 2 % shampoo 1 applic topical DAILY albuterol sulfate 90 mcg/actuation HFA aerosol inhaler 2 puff inhalation Q4H PRN (Reason: Wheezing) rosuvastatin 10 mg tablet 10 mg PO DAILY fluticasone propion-salmeterol 115-21 mcg/actuation HFA aerosol inhaler 1 puff INHALATION Q48H Patient Comments: Alternates every other day with Advair 250/50 mcg fluticasone propion-salmeterol 250-50 mcg/dose blister with device 1 inh inhalation BID Qty: 60 3RF Patient Comments: Alternating every other day with Advair 115/21 mcg (DME) Aerochamber MV Spacer See Rx Instructions .Route Qty: 1 1RF Rx Instructions: As directed tamsulosin 0.4 mg capsule 0.4 mg PO .B.i.d. Qty: 180 3RF finasteride 5 mg tablet 5 mg PO DAILY Qty: 90 3RF Follow up/Referrals: Eduardo Torres MD [Primary Care Provider] - Diet/Activity/Treatments Diet: Diet as Tolerated Activity: Refrain from lifting objects heavier than 15 lb x 4 weeks. Catheter: 2-way Knox Skin/Wound/Dressing Care Report to your healthcare provider any signs of infection, such as:: chills, fever, night sweats, increased pain and unusual drainage Visit Report/Discharge Packet Instructions: How to Care for Your Knox Catheter -- Male, DI for Transurethral Resection of the Prostate Stand Alone Forms: Surgery Discharge Discharge Data Primary Care Provider: Eduardo Torres Attending Provider: Joana Foy VTE Deep Vein Thrombosis/Pulmonary Embolism Present on Admission: No
== END 2024-01-08 14:35 | disposition home or self-care (01) ==
LOC: OR 16:04 → AC 16:05
PROVIDERS: PCP Family Medicine; Referring Provider Specialist; Visit Provider Specialist
PROC: 0VT08ZZ Resection of Prostate, Via Natural or Artificial Opening Endoscopic (ICD-10-PCS; CPT 0421T; principal; 2024-01-07 12:45)
DX: N40.1 Benign prostatic hyperplasia with lower urinary tract symptoms (principal); N13.8 Other obstructive and reflux uropathy; R33.9 Retention of urine, unspecified
CPT/HCPCS: 0421T; 36415; 52310; 94640; 94762; C2596; J0690; J1100; J2405; J2704; J3010; J3490; J7613

== ENCOUNTER → 2024-01-21 13:02 | Outpatient (CLI) | payer OTHER, SELFPAY ==
[2024-01-07 15:55] VITALS: BMI 23.8
--- NOTE | 2024-01-21 | DI.RAD.S_ITS ---
PROCEDURE: FL FLUOROSCOPY >1HR COMPARISON: None. INDICATIONS: Dyspnea Restrictive lung disease Sniff test FINDINGS: Multiple inspiratory efforts were performed under fluoroscopy. There is symmetric movement of the diaphragm with inspiration and expiration. No paradoxical movement or findings to suggest diaphragmatic paralysis. IMPRESSION: Negative fluoroscopic sniff test. Dictated by: Sharda Aquino M.D. on 01/21/2024 at 14:20 Approved by: Sharda Aquino M.D. on 01/21/2024 at 14:21
== END ==
LOC: RAD 13:03
PROVIDERS: PCP Family Medicine; Referring Provider Internal Medicine Critical Care Medicine; Visit Provider Internal Medicine Critical Care Medicine
DX: J98.4 Other disorders of lung (principal); R06.00 Dyspnea, unspecified
CPT/HCPCS: 76000

== ENCOUNTER 2024-02-02 14:23 | Inpatient (IN) | payer OTHER, SELFPAY ==
[2024-01-07 15:55] VITALS: BMI 23.8
[2024-02-02] VITALS (29 sets, daily range): BP systolic 92–199; BP diastolic 56–84; PULSE 73–96; RESP 18–44; TEMP 28.3–36.7; O2SAT 84–98; BMI 23.5
--- NOTE | 2024-02-02 14:37 | DI.CT.S_ITS ---
PROCEDURE: CT CERVICAL SPINE WO CON INDICATIONS: fall/hit head TECHNIQUE: Noncontrast 3 mm thick sections acquired from the skull base to the T4 level. Sagittal and coronal reformats were then constructed. For radiation dose reduction, the following was used: automated exposure control, adjustment of mA and/or kV according to patient size. COMPARISON: None. FINDINGS: Image quality: Excellent. Bones: No fractures or dislocations. Visualized superior ribs are intact. Straightening of the normal cervical lordosis present. Degenerative disc disease in the mid cervical spine. No significant central stenosis Soft tissues: Prevertebral soft tissues are normal in thickness. No paravertebral hematomas. No apical pneumothoraces. IMPRESSION: Degenerative disc disease and arthropathy without evidence of fracture or traumatic malalignment Approved by: Dionisio Mckeon M.D. on 02/02/2024 at 16:01
--- NOTE | 2024-02-02 14:37 | DI.CT.S_ITS ---
PROCEDURE: CT HEAD/BRAIN WO CON INDICATIONS: fall off bed hit head TECHNIQUE: Noncontrast 4.5 mm thick angled axial sections acquired from the foramen magnum to the vertex, with coronal and sagittal reformats. For radiation dose reduction, the following was used: automated exposure control, adjustment of mA and/or kV according to patient size. COMPARISON: None. FINDINGS: Image quality: Diagnostic. CSF spaces: Basal cisterns are patent. No extra-axial fluid collections. Ventricles are normal in size and shape. Brain: No midline shift. No intracranial masses or hemorrhage. Castillo-white matter interface is normal. Moderate cerebral and cerebellar volume loss with multifocal white matter chronic ischemic change noted. Atherosclerotic calcification noted associated with cavernous segments of both internal carotid arteries. Skull and face: Calvarium and visualized facial bones are intact, without suspicious lesions. Sinuses: Visualized sinuses and mastoids are clear. IMPRESSION: Atrophy and chronic ischemic change without intracranial hemorrhage or mass effect Approved by: Dionisio Mckeon M.D. on 02/02/2024 at 16:02
--- NOTE | 2024-02-02 14:37 | DI.RAD.S_ITS ---
PROCEDURE: XR CHEST 1V INDICATIONS: chest pain TECHNIQUE: One view of the chest was acquired. COMPARISON: [facility], CR, XR CHEST 2V, 07/16/2023, 10:29. FINDINGS: Surgical changes and devices: None. Lungs and pleura: Lungs are clear. No pleural effusions or pneumothorax. Mediastinum: Mediastinal contours appear normal. Heart size is normal. Bones and chest wall: No suspicious bony lesions. Overlying soft tissues appear unremarkable. IMPRESSION: No acute cardiopulmonary abnormality is seen. Approved by: Dionisio Mckeon M.D. on 02/02/2024 at 16:06
--- NOTE | 2024-02-02 15:00 | ED.GENADULT ---
HPI - General Adult <Silvino Perez DO - Last Filed: 03/02/24 12:54> General Chief complaint: Syncope Stated complaint: fall off couch hit head, no thinners Time Seen by Provider: 02/02/24 14:59 Source: patient Mode of arrival: Ambulatory History of Present Illness HPI narrative: 78-year-old male, former smoker with history of restrictive lung disease, asthma, urinary retention, hyperlipidemia presents with a chief complaint of multiple syncopal episodes. states that he has been having these episodes for quite some time and sometimes multiple times a day without any significant warning he will become unresponsive for least a few seconds, sometimes falling, sometimes merely falling asleep and then waking up soon thereafter. He denies any chest pain or palpitations. He denies any shortness of breath, cough or hemoptysis. He denies any recent travel, trauma or injury, no lower extremity pain, swelling or redness, no history of blood clots. He denies any change in medications or diet. Last night at about 3:00 a.m. he was attempting to sleep which is traditionally quite difficult for him when he fell off the bed and struck the front of his head. He does not take any blood thinners, he has had no vomiting. Related Data Home Medications Medication Instructions Recorded Confirmed cholecalciferol (vitamin D3) 50 50 mcg PO DAILY 11/27/22 02/21/24 mcg (2,000 unit) capsule (Vitamin D3) albuterol sulfate 90 mcg/actuation 2 puff inhalation Q4H PRN Wheezing 01/08/24 02/21/24 aerosol inhaler ketoconazole 2 % shampoo 1 applic topical DAILY 01/08/24 02/21/24 rosuvastatin 10 mg tablet 10 mg PO DAILY 01/08/24 02/21/24 docusate sodium 100 mg capsule 100 mg PO BID PRN Constipation 02/02/24 02/21/24 tamsulosin 0.4 mg capsule 0.4 mg PO DAILY 02/02/24 02/21/24 Previous Rx's Medication Instructions Recorded fluticasone 250 mcg-salmeterol 50 1 inh inhalation BID #60 ea 08/14/23 mcg/dose blistr powdr for inhalation inhalational spacing device #1 ea 11/14/23 (Aerochamber MV spacer) hydroxyzine HCl 25 mg tablet 25 mg PO BEDTIME #30 tabs 02/04/24 Allergies Allergy/AdvReac Type Severity Reaction Status Date / Time No Known Drug Allergies Allergy Verified 02/21/24 11:47 Review of Systems <DO Stacia Cisneros Last Filed: 03/02/24 12:54> Review of Systems Narrative: GENERAL: See HPI HEENT: Denies sinus pain, ear pain, sore throat, difficulty swallowing, dizziness. RESPIRATORY: Denies dyspnea, cough, wheezing, hemoptysis, sputum. CARDIOVASCULAR: See HPI GASTROINTESTINAL: Denies nausea, vomiting, abdominal pain, diarrhea, constipation, melena. : Denies dysuria, frequency, incontinence, hematuria, urinary retention. MUSCULOSKELETAL: denies weakness, joint pain, or bony pain SKIN: Denies rash, skin lesions, or other NEUROLOGIC: Denies weakness, headache, numbness, change in speech, confusion, seizures, incoordination. PSYCHIATRIC: No concerning psychosocial issues. 12 point review of systems is negative except for those stated above Patient History <DO Stacia Cisneros Last Filed: 03/02/24 12:54> Medical History Incomplete bladder emptying Urinary retention Bladder calculi History of nephrolithiasis BPH w urinary obs/LUTS H/O nephrolithotomy with removal of calculi Renal disease Heart attack Kidney stones Enlarged prostate Hypercholesteremia Surgical History History of coronary artery stent placement Family History Mother Cancer CAD in [place] artery Hypertension Social History marital status: number of children: 1 household members: spouse Smoking Status: Former smoker alcohol intake: current Type(s) of exercise: walking frequency: 1-2 times per week Smoking Status: Former smoker alcohol intake frequency: holidays/special occasions only Substance Use Type: does not use Exam <DO Stacia Cisneros Last Filed: 03/02/24 12:54> Narrative Exam Narrative: GENERAL: [78] year old patient appears stated age. Well-developed patient, in mild distress. GCS 15 HEAD: Atraumatic. Normocephalic. Superficial abrasion on forehead EYES: Pupils equal round and reactive. No hyphema Extraocular motions intact. No scleral icterus. No injection or drainage. ENT: Nose without bleeding, purulent drainage. No nasal septal hematoma Throat without erythema, tonsillar hypertrophy or exudate. Airway patent. NECK: Trachea midline. Non tender, no midline tenderness, step-offs or crepitance CARDIOVASCULAR: Regular rate and rhythm without murmurs, gallops, or rubs. RESPIRATORY: Clear to auscultation. Breath sounds equal bilaterally. No wheezes, rales, or rhonchi. GASTROINTESTINAL: Abdomen soft, non-tender, nondistended. EXTREMITIES: No edema or joint tenderness. BACK: Nontender without deformity or crepitance. No flank tenderness. NEURO: AOx3. SKIN: No rash or erythema of visible areas Initial Vital Signs Initial Vital Signs: Vital Signs Temperature 98.1 F 02/02/24 14:28 Pulse Rate 81 02/02/24 14:28 Respiratory Rate 18 02/02/24 14:28 Blood Pressure 130/60 02/02/24 14:28 Pulse Oximetry 94 02/02/24 14:28 Oxygen Delivery Method Room Air 02/02/24 14:28 <Myla Pereira DO - Last Filed: 02/02/24 19:43> Initial Vital Signs Initial Vital Signs: Vital Signs Temperature 98.1 F 02/02/24 14:28 Pulse Rate 81 02/02/24 14:28 Respiratory Rate 18 02/02/24 14:28 Blood Pressure 130/60 02/02/24 14:28 Pulse Oximetry 94 02/02/24 14:28 Oxygen Delivery Method Room Air 02/02/24 14:28 Course <Silvino Perez DO - Last Filed: 03/02/24 12:54> Orders Ordered: Discontinued Medications Acetaminophen (Acetaminophen 325 Mg Tablet) 650 mg PO Q6H PRN PRN Reason: Fever/Mild Pain (1-3) Albuterol (Albuterol 2.5 Mg/3 Ml Neb (Adult)) 2.5 mg INH [id number] [facility] Last Admin: 02/06/24 14:08 Dose: 2.5 mg Documented By: Admin: 02/06/24 12:59 Dose: Not Given Documented By: Admin: 02/06/24 07:23 Dose: Not Given Documented By: Admin: 02/06/24 07:23 Dose: 2.5 mg Documented By: Admin: 02/05/24 19:46 Dose: 2.5 mg Documented By: Admin: 02/05/24 14:55 Dose: 2.5 mg Documented By: Admin: 02/05/24 10:04 Dose: 2.5 mg Documented By: Admin: 02/05/24 07:15 Dose: 2.5 mg Documented By: Admin: 02/05/24 01:55 Dose: Not Given Documented By: Admin: 02/04/24 20:43 Dose: 2.5 mg Documented By: Admin: 02/04/24 19:42 Dose: Not Given Documented By: Admin: 02/04/24 16:45 Dose: Not Given Documented By: Admin: 02/04/24 12:23 Dose: 2.5 mg Documented By: Admin: 02/04/24 06:58 Dose: 2.5 mg Documented By: Admin: 02/03/24 20:33 Dose: 2.5 mg Documented By: Admin: 02/03/24 16:03 Dose: 2.5 mg Documented By: Admin: 02/03/24 11:19 Dose: 2.5 mg Documented By: Admin: 02/03/24 09:27 Dose: Not Given Documented By: Admin: 02/03/24 00:14 Dose: 2.5 mg Documented By: HOLLY Albuterol/Ipratropium (Albuterol/Ipratropium 3 Ml Ampul) 3 ml INH NOW ONE Stop: 02/02/24 19:42 Last Admin: 02/02/24 19:47 Dose: 3 ml Documented By: HOLLY Atorvastatin Calcium (Atorvastatin 20 Mg Tablet) 20 mg PO DAILY [facility] Last Admin: 02/06/24 08:54 Dose: 20 mg Documented By: Admin: 02/05/24 08:32 Dose: 20 mg Documented By: Admin: 02/04/24 08:22 Dose: 20 mg Documented By: Admin: 02/03/24 08:46 Dose: 20 mg Documented By: MAGGIE Diphenhydramine HCl (Diphenhydramine 25 Mg Tablet) 25 mg PO BEDTIME PRN PRN Reason: Insomnia Last Admin: 02/03/24 21:10 Dose: 25 mg Documented By: DARIAN Enoxaparin Sodium (Enoxaparin 40 Mg/0.4 Ml Syringe) 40 mg SUBCUT DAILY [facility] Last Admin: 02/06/24 08:55 Dose: Not Given Documented By: Admin: 02/05/24 07:58 Dose: Not Given Documented By: Admin: 02/04/24 08:22 Dose: Not Given Documented By: Admin: 02/03/24 08:46 Dose: 40 mg Documented By: MAGGIE Finasteride (Finasteride 5 Mg Tablet) 5 mg PO DAILY [facility] Last Admin: 02/04/24 08:22 Dose: Not Given Documented By: Admin: 02/03/24 08:46 Dose: Not Given Documented By: MAGGIE Hydroxyzine HCl (Hydroxyzine Hcl 25 Mg Tablet) 25 mg PO Q4H [facility] Last Admin: 02/05/24 07:47 Dose: Not Given Documented By: MS Hydroxyzine HCl (Hydroxyzine Hcl 25 Mg Tablet) 25 mg PO Q4H PRN PRN Reason: ANXIETY/INSOMNIA Last Admin: 02/04/24 20:49 Dose: 25 mg Documented By: DARIAN Dextrose/Sodium Chloride (Dextrose 5%-0.9% Ns) 1,000 mls @ 100 mls/hr IV CONT [facility] Last Infusion: 02/03/24 09:37 Dose: Infused Documented By: Admin: 02/02/24 22:36 Dose: 100 mls/hr Documented By: Lorazepam (Lorazepam 2 Mg/Ml Inj) 1 mg IV Q4HR PRN PRN Reason: Anxiety Methylprednisolone (Methylprednisolone 125 Mg/2 Ml Vial) 60 mg IV Q8H [facility] Last Admin: 02/06/24 13:45 Dose: 60 mg Documented By: Admin: 02/06/24 04:59 Dose: 60 mg Documented By: Admin: 02/05/24 20:31 Dose: 60 mg Documented By: Admin: 02/05/24 13:32 Dose: 60 mg Documented By: Admin: 02/05/24 05:23 Dose: 60 mg Documented By: Admin: 02/04/24 20:48 Dose: 60 mg Documented By: [facility] Admin: 02/04/24 14:44 Dose: 60 mg Documented By: Admin: 02/04/24 07:46 Dose: Not Given Documented By: Admin: 02/03/24 21:10 Dose: 60 mg Documented By: [facility] Admin: 02/03/24 12:53 Dose: 60 mg Documented By: Admin: 02/03/24 04:54 Dose: 60 mg Documented By: Admin: 02/02/24 22:35 Dose: 60 mg Documented By: IGOR Naloxone HCl (Naloxone 0.4 Mg/Ml Vial) 0.2 mg IV Q2MIN PRN PRN Reason: Opiate Reversal Oxycodone HCl (Oxycodone Ir 5 Mg Tablet) 5 mg PO Q3H PRN PRN Reason: Pain, Moderate (4-6) Sodium Chloride (Sodium Chloride 0.9% Flush) 10 ml IV PRN PRN PRN Reason: Flush Sodium Chloride (Sodium Chloride 0.9% Flush) 10 ml IV BID [facility] Last Admin: 02/06/24 08:55 Dose: 10 ml Documented By: Admin: 02/05/24 20:31 Dose: 10 ml Documented By: Admin: 02/05/24 08:32 Dose: 10 ml Documented By: Admin: 02/04/24 20:47 Dose: 10 ml Documented By: [facility] Admin: 02/04/24 08:26 Dose: 10 ml Documented By: Admin: 02/03/24 21:10 Dose: 10 ml Documented By: DARIAN Tamsulosin HCl (Tamsulosin 0.4 Mg Capsule) 0.4 mg PO BID [facility] Last Admin: 02/06/24 08:54 Dose: 0.4 mg Documented By: Admin: 02/05/24 20:31 Dose: 0.4 mg Documented By: Admin: 02/05/24 08:32 Dose: 0.4 mg Documented By: Admin: 02/04/24 20:49 Dose: 0.4 mg Documented By: [facility] Admin: 02/04/24 08:22 Dose: 0.4 mg Documented By: Admin: 02/03/24 21:10 Dose: 0.4 mg Documented By: [facility] Admin: 02/03/24 08:46 Dose: 0.4 mg Documented By: MAGGIE Vital Signs Vital signs: Vital Signs - 8 hr 02/02/24 14:28 02/02/24 14:52 02/02/24 14:53 Temperature 98.1 F Pulse Rate 81 91 H 89 Respiratory Rate 18 Blood Pressure 130/60 Pulse Oximetry 94 89 L 89 L Oxygen Delivery Method Room Air Room Air Room Air Oxygen Flow Rate 02/02/24 14:53 02/02/24 15:00 02/02/24 15:00 Temperature Pulse Rate 89 Respiratory Rate 35 H Blood Pressure 149/70 H 131/58 L Pulse Oximetry 93 Oxygen Delivery Method Oxygen Flow Rate 02/02/24 15:30 02/02/24 15:31 02/02/24 15:31 Temperature Pulse Rate 96 H 94 H Respiratory Rate 38 H 44 H Blood Pressure 156/74 H Pulse Oximetry 91 93 Oxygen Delivery Method Nasal Cannula Nasal Cannula Oxygen Flow Rate 1 1 02/02/24 15:36 02/02/24 15:36 02/02/24 16:00 Temperature Pulse Rate 90 83 Respiratory Rate 41 H 39 H Blood Pressure 146/70 H Pulse Oximetry 94 91 Oxygen Delivery Method Oxygen Flow Rate 02/02/24 16:01 02/02/24 16:01 02/02/24 16:30 Temperature Pulse Rate 85 Respiratory Rate 39 H Blood Pressure 199/84 H 173/83 H Pulse Oximetry 92 Oxygen Delivery Method Oxygen Flow Rate 02/02/24 16:30 02/02/24 16:52 02/02/24 16:52 Temperature Pulse Rate 85 95 H Respiratory Rate 37 H 37 H Blood Pressure 167/71 H Pulse Oximetry 92 93 Oxygen Delivery Method Nasal Cannula Oxygen Flow Rate 1 1 02/02/24 17:00 02/02/24 17:00 02/02/24 17:57 Temperature Pulse Rate 91 H 84 Respiratory Rate 36 H 36 H Blood Pressure 148/65 H Pulse Oximetry 94 93 Oxygen Delivery Method Nasal Cannula Oxygen Flow Rate 1 02/02/24 17:59 02/02/24 17:59 02/02/24 18:00 Temperature Pulse Rate 89 Respiratory Rate 38 H Blood Pressure 169/72 H 155/76 H Pulse Oximetry 91 Oxygen Delivery Method Nasal Cannula Oxygen Flow Rate 1 02/02/24 18:00 02/02/24 18:30 02/02/24 18:31 Temperature Pulse Rate 93 H 84 Respiratory Rate 41 H 35 H Blood Pressure 191/84 H Pulse Oximetry 93 93 Oxygen Delivery Method Nasal Cannula Oxygen Flow Rate 1 02/02/24 18:31 Temperature Pulse Rate 82 Respiratory Rate 34 H Blood Pressure Pulse Oximetry 93 Oxygen Delivery Method Oxygen Flow Rate <DO Stacia Spencer Filed: 02/02/24 19:43> Orders Ordered: Discontinued Medications Acetaminophen (Acetaminophen 325 Mg Tablet) 650 mg PO Q6H PRN PRN Reason: Fever/Mild Pain (1-3) Albuterol (Albuterol 2.5 Mg/3 Ml Neb (Adult)) 2.5 mg INH [id number] [facility] Last Admin: 02/06/24 14:08 Dose: 2.5 mg Documented By: Admin: 02/06/24 12:59 Dose: Not Given Documented By: Admin: 02/06/24 07:23 Dose: Not Given Documented By: Admin: 02/06/24 07:23 Dose: 2.5 mg Documented By: Admin: 02/05/24 19:46 Dose: 2.5 mg Documented By: JGenesis Admin: 02/05/24 14:55 Dose: 2.5 mg Documented By: Admin: 02/05/24 10:04 Dose: 2.5 mg Documented By: WTerry Admin: 02/05/24 07:15 Dose: 2.5 mg Documented By: Admin: 02/05/24 01:55 Dose: Not Given Documented By: Admin: 02/04/24 20:43 Dose: 2.5 mg Documented By: Admin: 02/04/24 19:42 Dose: Not Given Documented By: JGenesis Admin: 02/04/24 16:45 Dose: Not Given Documented By: WTerry Admin: 02/04/24 12:23 Dose: 2.5 mg Documented By: JOsvaldo Admin: 02/04/24 06:58 Dose: 2.5 mg Documented By: WTerry Admin: 02/03/24 20:33 Dose: 2.5 mg Documented By: Admin: 02/03/24 16:03 Dose: 2.5 mg Documented By: Admin: 02/03/24 11:19 Dose: 2.5 mg Documented By: Admin: 02/03/24 09:27 Dose: Not Given Documented By: JGenesis Admin: 02/03/24 00:14 Dose: 2.5 mg Documented By: BLF Albuterol/Ipratropium (Albuterol/Ipratropium 3 Ml Ampul) 3 ml INH NOW ONE Stop: 02/02/24 19:42 Last Admin: 02/02/24 19:47 Dose: 3 ml Documented By: BLF Atorvastatin Calcium (Atorvastatin 20 Mg Tablet) 20 mg PO DAILY [facility] Last Admin: 02/06/24 08:54 Dose: 20 mg Documented By: Admin: 02/05/24 08:32 Dose: 20 mg Documented By: Admin: 02/04/24 08:22 Dose: 20 mg Documented By: Admin: 02/03/24 08:46 Dose: 20 mg Documented By: MAGGIE Diphenhydramine HCl (Diphenhydramine 25 Mg Tablet) 25 mg PO BEDTIME PRN PRN Reason: Insomnia Last Admin: 02/03/24 21:10 Dose: 25 mg Documented By: [facility] Enoxaparin Sodium (Enoxaparin 40 Mg/0.4 Ml Syringe) 40 mg SUBCUT DAILY [facility] Last Admin: 02/06/24 08:55 Dose: Not Given Documented By: Admin: 02/05/24 07:58 Dose: Not Given Documented By: Admin: 02/04/24 08:22 Dose: Not Given Documented By: Admin: 02/03/24 08:46 Dose: 40 mg Documented By: MAGGIE Finasteride (Finasteride 5 Mg Tablet) 5 mg PO DAILY [facility] Last Admin: 02/04/24 08:22 Dose: Not Given Documented By: Admin: 02/03/24 08:46 Dose: Not Given Documented By: MAGGIE Hydroxyzine HCl (Hydroxyzine Hcl 25 Mg Tablet) 25 mg PO Q4H [facility] Last Admin: 02/05/24 07:47 Dose: Not Given Documented By: MS Hydroxyzine HCl (Hydroxyzine Hcl 25 Mg Tablet) 25 mg PO Q4H PRN PRN Reason: ANXIETY/INSOMNIA Last Admin: 02/04/24 20:49 Dose: 25 mg Documented By: DARIAN Dextrose/Sodium Chloride (Dextrose 5%-0.9% Ns) 1,000 mls @ 100 mls/hr IV CONT [facility] Last Infusion: 02/03/24 09:37 Dose: Infused Documented By: Admin: 02/02/24 22:36 Dose: 100 mls/hr Documented By: Lorazepam (Lorazepam 2 Mg/Ml Inj) 1 mg IV Q4HR PRN PRN Reason: Anxiety Methylprednisolone (Methylprednisolone 125 Mg/2 Ml Vial) 60 mg IV Q8H [facility] Last Admin: 02/06/24 13:45 Dose: 60 mg Documented By: Admin: 02/06/24 04:59 Dose: 60 mg Documented By: Admin: 02/05/24 20:31 Dose: 60 mg Documented By: Admin: 02/05/24 13:32 Dose: 60 mg Documented By: Admin: 02/05/24 05:23 Dose: 60 mg Documented By: [facility] Admin: 02/04/24 20:48 Dose: 60 mg Documented By: [facility] Admin: 02/04/24 14:44 Dose: 60 mg Documented By: Admin: 02/04/24 07:46 Dose: Not Given Documented By: Admin: 02/03/24 21:10 Dose: 60 mg Documented By: [facility] Admin: 02/03/24 12:53 Dose: 60 mg Documented By: Admin: 02/03/24 04:54 Dose: 60 mg Documented By: Admin: 02/02/24 22:35 Dose: 60 mg Documented By: Naloxone HCl (Naloxone 0.4 Mg/Ml Vial) 0.2 mg IV Q2MIN PRN PRN Reason: Opiate Reversal Oxycodone HCl (Oxycodone Ir 5 Mg Tablet) 5 mg PO Q3H PRN PRN Reason: Pain, Moderate (4-6) Sodium Chloride (Sodium Chloride 0.9% Flush) 10 ml IV PRN PRN PRN Reason: Flush Sodium Chloride (Sodium Chloride 0.9% Flush) 10 ml IV BID [facility] Last Admin: 02/06/24 08:55 Dose: 10 ml Documented By: Admin: 02/05/24 20:31 Dose: 10 ml Documented By: Admin: 02/05/24 08:32 Dose: 10 ml Documented By: Admin: 02/04/24 20:47 Dose: 10 ml Documented By: [facility] Admin: 02/04/24 08:26 Dose: 10 ml Documented By: [facility] Admin: 02/03/24 21:10 Dose: 10 ml Documented By: [facility] Tamsulosin HCl (Tamsulosin 0.4 Mg Capsule) 0.4 mg PO BID [facility] Last Admin: 02/06/24 08:54 Dose: 0.4 mg Documented By: Admin: 02/05/24 20:31 Dose: 0.4 mg Documented By: Admin: 02/05/24 08:32 Dose: 0.4 mg Documented By: Admin: 02/04/24 20:49 Dose: 0.4 mg Documented By: Admin: 02/04/24 08:22 Dose: 0.4 mg Documented By: Admin: 02/03/24 21:10 Dose: 0.4 mg Documented By: Admin: 02/03/24 08:46 Dose: 0.4 mg Documented By: MAGGIE Vital Signs Vital signs: Vital Signs - 8 hr 02/02/24 14:28 02/02/24 14:52 02/02/24 14:53 Temperature 98.1 F Pulse Rate 81 91 H 89 Respiratory Rate 18 Blood Pressure 130/60 Pulse Oximetry 94 89 L 89 L Oxygen Delivery Method Room Air Room Air Room Air Oxygen Flow Rate 02/02/24 14:53 02/02/24 15:00 02/02/24 15:00 Temperature Pulse Rate 89 Respiratory Rate 35 H Blood Pressure 149/70 H 131/58 L Pulse Oximetry 93 Oxygen Delivery Method Oxygen Flow Rate 02/02/24 15:30 02/02/24 15:31 02/02/24 15:31 Temperature Pulse Rate 96 H 94 H Respiratory Rate 38 H 44 H Blood Pressure 156/74 H Pulse Oximetry 91 93 Oxygen Delivery Method Nasal Cannula Nasal Cannula Oxygen Flow Rate 1 1 02/02/24 15:36 02/02/24 15:36 02/02/24 16:00 Temperature Pulse Rate 90 83 Respiratory Rate 41 H 39 H Blood Pressure 146/70 H Pulse Oximetry 94 91 Oxygen Delivery Method Oxygen Flow Rate 02/02/24 16:01 02/02/24 16:01 02/02/24 16:30 Temperature Pulse Rate 85 Respiratory Rate 39 H Blood Pressure 199/84 H 173/83 H Pulse Oximetry 92 Oxygen Delivery Method Oxygen Flow Rate 02/02/24 16:30 02/02/24 16:52 02/02/24 16:52 Temperature Pulse Rate 85 95 H Respiratory Rate 37 H 37 H Blood Pressure 167/71 H Pulse Oximetry 92 93 Oxygen Delivery Method Nasal Cannula Oxygen Flow Rate 1 1 02/02/24 17:00 02/02/24 17:00 02/02/24 17:57 Temperature Pulse Rate 91 H 84 Respiratory Rate 36 H 36 H Blood Pressure 148/65 H Pulse Oximetry 94 93 Oxygen Delivery Method Nasal Cannula Oxygen Flow Rate 1 02/02/24 17:59 02/02/24 17:59 02/02/24 18:00 Temperature Pulse Rate 89 Respiratory Rate 38 H Blood Pressure 169/72 H 155/76 H Pulse Oximetry 91 Oxygen Delivery Method Nasal Cannula Oxygen Flow Rate 1 02/02/24 18:00 02/02/24 18:30 02/02/24 18:31 Temperature Pulse Rate 93 H 84 Respiratory Rate 41 H 35 H Blood Pressure 191/84 H Pulse Oximetry 93 93 Oxygen Delivery Method Nasal Cannula Oxygen Flow Rate 1 02/02/24 18:31 Temperature Pulse Rate 82 Respiratory Rate 34 H Blood Pressure Pulse Oximetry 93 Oxygen Delivery Method Oxygen Flow Rate Medical Decision Making <Silvino Perez, DO - Last Filed: 03/02/24 12:54> Lab Data 02/03/24 03:20 02/03/24 03:20 Labs: Lab Results 02/02/24 02/02/24 02/02/24 Range/Units 14:45 15:30 16:40 WBC 6.9 (4.5-11.0) X10^3/uL RBC 5.14 (4.5-5.9) X10^6/uL Hgb 15.0 (13.5-17.5) g/dL Hct 46.2 (41-53) % MCV 89.8 (80-100) fL MCH 29.2 (26-34) PG MCHC 32.5 (30-36) % RDW 14.7 (11.6-14.8) % Plt Count 172 (150-400) X10^3/uL Neut % (Auto) 73.8 (50-75) % Lymph % (Auto) 11.7 L (25-40) % Grant % (Auto) 14.0 (3-14) % Eos % (Auto) 0.3 L (2-4) % Baso % (Auto) 0.2 (0-2) % Neut # (Auto) 5100 (4240-9541) /uL Lymph # (Auto) 800 L (2497-6652) /uL Grant # (Auto) 1000 H (0-900) /uL Eos # (Auto) 0 (0-450) /uL Baso # (Auto) 0 (0-100) /uL PT 12.3 (9.4-12.5) SECONDS INR 1.1 (0.9-1.3) APTT 34 (25.1-36.5) SECONDS D-Dimer 506 H (<500) ng/ml ABG Sample Site ABG pH (7.35-7.45) ABG pCO2 (35-45) mmHg ABG pO2 (80-100) mmHg ABG HCO3 (23-27) mmol/L ABG Total CO2 (23-27) mmol/L ABG O2 Saturation (95-100) % ABG Base Excess (-2-3) mmol/L FiO2 Sodium 138 (137-145) mmol/L Potassium 4.3 (3.4-5.1) mmol/L Chloride 95 L (98-107) mmol/L Carbon Dioxide 38 H (22-32) mmol/L BUN 29 H (9-20) mg/dL Creatinine 0.62 L (0.66-1.25) mg/dL Estimated GFR > 60 (>60) mL/min BUN/Creatinine Ratio 46.8 H (6-22) Glucose 110 (80-110) mg/dL Calcium 8.4 (8.4-10.2) mg/dL Magnesium 2.2 (1.6-2.3) mg/dL Total Bilirubin 0.5 (0.2-1.3) mg/dL AST 33 (17-59) IU/L ALT 40 (<50) IU/L Alkaline Phosphatase 72 (38-126) U/L Total Creatine Kinase 63 (55-170) U/L Troponin I 0.060 H 0.084 H (0.01-0.034) ng/mL NT-Pro-B Natriuret Pep 304 (<450) pg/mL Total Protein 6.8 (6.3-8.2) g/dL Albumin 3.9 (3.5-5.0) g/dL Globulin 2.9 (1.7-4.1) g/dL Albumin/Globulin Ratio 1.3 (1.0-2.8) Lipase 80 (23-300) U/L Urine Color Yellow Urine Appearance Sl cloudy Urine pH 6.0 (4.5-8.0) Ur Specific [place] 1.020 (1.000-1.035) Urine Protein 2+ H (Negative) Urine Glucose (UA) Negative (Negative) g/dL Urine Ketones Negative (NEGATIVE) Urine Occult Blood 3+ H (Negative) Urine Nitrate Negative (Negative) Urine Bilirubin Negative (NEGATIVE) Urine Urobilinogen 1.0 (0.2) E.U./dL Ur Leukocyte Esterase Trace H (NEGATIVE) Urine RBC 30-100/hpf H (0-5/HPF) Urine WBC 5-10/hpf H (0-5/HPF) Ur Squamous Epith Cells 0-1 /hpf (0-5/HPF) Urine Bacteria Occasional (0-1) (None) Urine Mucus 2+ H (Negative) Ur Culture Indicated? Specimen cultured Vol Urine Centrifuged 10ml (spun) 02/02/24 Range/Units 19:12 WBC (4.5-11.0) X10^3/uL RBC (4.5-5.9) X10^6/uL Hgb (13.5-17.5) g/dL Hct (41-53) % MCV (80-100) fL MCH (26-34) PG MCHC (30-36) % RDW (11.6-14.8) % Plt Count (150-400) X10^3/uL Neut % (Auto) (50-75) % Lymph % (Auto) (25-40) % Grant % (Auto) (3-14) % Eos % (Auto) (2-4) % Baso % (Auto) (0-2) % Neut # (Auto) (3079-8372) /uL Lymph # (Auto) (8016-1128) /uL Grant # (Auto) (0-900) /uL Eos # (Auto) (0-450) /uL Baso # (Auto) (0-100) /uL PT (9.4-12.5) SECONDS INR (0.9-1.3) APTT (25.1-36.5) SECONDS D-Dimer (<500) ng/ml ABG Sample Site Right radial ABG pH 7.20 L* (7.35-7.45) ABG pCO2 > 86.0 H* (35-45) mmHg ABG pO2 92 (80-100) mmHg ABG HCO3 45 H (23-27) mmol/L ABG Total CO2 48 H (23-27) mmol/L ABG O2 Saturation 94 L (95-100) % ABG Base Excess 17.0 H (-2-3) mmol/L FiO2 26 Sodium (137-145) mmol/L Potassium (3.4-5.1) mmol/L Chloride (98-107) mmol/L Carbon Dioxide (22-32) mmol/L BUN (9-20) mg/dL Creatinine (0.66-1.25) mg/dL Estimated GFR (>60) mL/min BUN/Creatinine Ratio (6-22) Glucose (80-110) mg/dL Calcium (8.4-10.2) mg/dL Magnesium (1.6-2.3) mg/dL Total Bilirubin (0.2-1.3) mg/dL AST (17-59) IU/L ALT (<50) IU/L Alkaline Phosphatase (38-126) U/L Total Creatine Kinase (55-170) U/L Troponin I (0.01-0.034) ng/mL NT-Pro-B Natriuret Pep (<450) pg/mL Total Protein (6.3-8.2) g/dL Albumin (3.5-5.0) g/dL Globulin (1.7-4.1) g/dL Albumin/Globulin Ratio (1.0-2.8) Lipase (23-300) U/L Urine Color Urine Appearance Urine pH (4.5-8.0) Ur Specific [place] (1.000-1.035) Urine Protein (Negative) Urine Glucose (UA) (Negative) g/dL Urine Ketones (NEGATIVE) Urine Occult Blood (Negative) Urine Nitrate (Negative) Urine Bilirubin (NEGATIVE) Urine Urobilinogen (0.2) E.U./dL Ur Leukocyte Esterase (NEGATIVE) Urine RBC (0-5/HPF) Urine WBC (0-5/HPF) Ur Squamous Epith Cells (0-5/HPF) Urine Bacteria (None) Urine Mucus (Negative) Ur Culture Indicated? Vol Urine Centrifuged <Myla Pereira, DO - Last Filed: 02/02/24 19:43> Lab Data Labs: Lab Results 02/02/24 02/02/24 02/02/24 Range/Units 14:45 15:30 16:40 WBC 6.9 (4.5-11.0) X10^3/uL RBC 5.14 (4.5-5.9) X10^6/uL Hgb 15.0 (13.5-17.5) g/dL Hct 46.2 (41-53) % MCV 89.8 (80-100) fL MCH 29.2 (26-34) PG MCHC 32.5 (30-36) % RDW 14.7 (11.6-14.8) % Plt Count 172 (150-400) X10^3/uL Neut % (Auto) 73.8 (50-75) % Lymph % (Auto) 11.7 L (25-40) % Grant % (Auto) 14.0 (3-14) % Eos % (Auto) 0.3 L (2-4) % Baso % (Auto) 0.2 (0-2) % Neut # (Auto) 5100 (2605-3929) /uL Lymph # (Auto) 800 L (8762-0944) /uL Grant # (Auto) 1000 H (0-900) /uL Eos # (Auto) 0 (0-450) /uL Baso # (Auto) 0 (0-100) /uL PT 12.3 (9.4-12.5) SECONDS INR 1.1 (0.9-1.3) APTT 34 (25.1-36.5) SECONDS D-Dimer 506 H (<500) ng/ml ABG Sample Site ABG pH (7.35-7.45) ABG pCO2 (35-45) mmHg ABG pO2 (80-100) mmHg ABG HCO3 (23-27) mmol/L ABG Total CO2 (23-27) mmol/L ABG O2 Saturation (95-100) % ABG Base Excess (-2-3) mmol/L FiO2 Sodium 138 (137-145) mmol/L Potassium 4.3 (3.4-5.1) mmol/L Chloride 95 L (98-107) mmol/L Carbon Dioxide 38 H (22-32) mmol/L BUN 29 H (9-20) mg/dL Creatinine 0.62 L (0.66-1.25) mg/dL Estimated GFR > 60 (>60) mL/min BUN/Creatinine Ratio 46.8 H (6-22) Glucose 110 (80-110) mg/dL Calcium 8.4 (8.4-10.2) mg/dL Magnesium 2.2 (1.6-2.3) mg/dL Total Bilirubin 0.5 (0.2-1.3) mg/dL AST 33 (17-59) IU/L ALT 40 (<50) IU/L Alkaline Phosphatase 72 (38-126) U/L Total Creatine Kinase 63 (55-170) U/L Troponin I 0.060 H 0.084 H (0.01-0.034) ng/mL NT-Pro-B Natriuret Pep 304 (<450) pg/mL Total Protein 6.8 (6.3-8.2) g/dL Albumin 3.9 (3.5-5.0) g/dL Globulin 2.9 (1.7-4.1) g/dL Albumin/Globulin Ratio 1.3 (1.0-2.8) Lipase 80 (23-300) U/L Urine Color Yellow Urine Appearance Sl cloudy Urine pH 6.0 (4.5-8.0) Ur Specific [place] 1.020 (1.000-1.035) Urine Protein 2+ H (Negative) Urine Glucose (UA) Negative (Negative) g/dL Urine Ketones Negative (NEGATIVE) Urine Occult Blood 3+ H (Negative) Urine Nitrate Negative (Negative) Urine Bilirubin Negative (NEGATIVE) Urine Urobilinogen 1.0 (0.2) E.U./dL Ur Leukocyte Esterase Trace H (NEGATIVE) Urine RBC 30-100/hpf H (0-5/HPF) Urine WBC 5-10/hpf H (0-5/HPF) Ur Squamous Epith Cells 0-1 /hpf (0-5/HPF) Urine Bacteria Occasional (0-1) (None) Urine Mucus 2+ H (Negative) Ur Culture Indicated? Specimen cultured Vol Urine Centrifuged 10ml (spun) 02/02/24 Range/Units 19:12 WBC (4.5-11.0) X10^3/uL RBC (4.5-5.9) X10^6/uL Hgb (13.5-17.5) g/dL Hct (41-53) % MCV (80-100) fL MCH (26-34) PG MCHC (30-36) % RDW (11.6-14.8) % Plt Count (150-400) X10^3/uL Neut % (Auto) (50-75) % Lymph % (Auto) (25-40) % Grant % (Auto) (3-14) % Eos % (Auto) (2-4) % Baso % (Auto) (0-2) % Neut # (Auto) (0792-4838) /uL Lymph # (Auto) (4810-5598) /uL Grant # (Auto) (0-900) /uL Eos # (Auto) (0-450) /uL Baso # (Auto) (0-100) /uL PT (9.4-12.5) SECONDS INR (0.9-1.3) APTT (25.1-36.5) SECONDS D-Dimer (<500) ng/ml ABG Sample Site Right radial ABG pH 7.20 L* (7.35-7.45) ABG pCO2 > 86.0 H* (35-45) mmHg ABG pO2 92 (80-100) mmHg ABG HCO3 45 H (23-27) mmol/L ABG Total CO2 48 H (23-27) mmol/L ABG O2 Saturation 94 L (95-100) % ABG Base Excess 17.0 H (-2-3) mmol/L FiO2 26 Sodium (137-145) mmol/L Potassium (3.4-5.1) mmol/L Chloride (98-107) mmol/L Carbon Dioxide (22-32) mmol/L BUN (9-20) mg/dL Creatinine (0.66-1.25) mg/dL Estimated GFR (>60) mL/min BUN/Creatinine Ratio (6-22) Glucose (80-110) mg/dL Calcium (8.4-10.2) mg/dL Magnesium (1.6-2.3) mg/dL Total Bilirubin (0.2-1.3) mg/dL AST (17-59) IU/L ALT (<50) IU/L Alkaline Phosphatase (38-126) U/L Total Creatine Kinase (55-170) U/L Troponin I (0.01-0.034) ng/mL NT-Pro-B Natriuret Pep (<450) pg/mL Total Protein (6.3-8.2) g/dL Albumin (3.5-5.0) g/dL Globulin (1.7-4.1) g/dL Albumin/Globulin Ratio (1.0-2.8) Lipase (23-300) U/L Urine Color Urine Appearance Urine pH (4.5-8.0) Ur Specific [place] (1.000-1.035) Urine Protein (Negative) Urine Glucose (UA) (Negative) g/dL Urine Ketones (NEGATIVE) Urine Occult Blood (Negative) Urine Nitrate (Negative) Urine Bilirubin (NEGATIVE) Urine Urobilinogen (0.2) E.U./dL Ur Leukocyte Esterase (NEGATIVE) Urine RBC (0-5/HPF) Urine WBC (0-5/HPF) Ur Squamous Epith Cells (0-5/HPF) Urine Bacteria (None) Urine Mucus (Negative) Ur Culture Indicated? Vol Urine Centrifuged Imaging Data CT scan - head: Radiologist's Impression: oJe Boggs??78??M??1945 ? Allergy/Adv: No Known Drug Allergies Close Chest CTA (Signed) Mckeon,[facility] - 02/02/[address] (Signed) Mckeon,Dionisio - 02/02/24 Chest X-Ray (Signed) Mckeon,Dionisio - 02/02/[address] (Signed) Mckeon,Dionisio - 02/02/24 Fluoroscopy (Signed) Sharda Aquino - 01/21/24 PFT Result 12/07/23 Bladder Scan 10/24/23 PFT Result 08/03/23 DI Result CC 08/02/23 Radiology Report (Cancelled) Timoteo Marr - 07/17/23 Myocardial Perfusion Scan Nuc Med (Signed) Timoteo Marr - 07/17/23 Chest X-Ray (Signed) Abhijit Ugalde - 07/16/23 Chest X-Ray (Signed) Sharda Aquino - 07/02/23 Abdomen X-Ray (Signed) Awais Singletary - 04/27/23 Abdomen/Pelvis CT (Signed) Nena Snow - 04/26/23 Abdominal Arterial Study US (Signed) Cirilo Espinoza - 11/04/21 Launch?[place] [id number] CT Scan Report Signed Patient: Joe Boggs MR#: [id number] : 1945 Acct:[id number] Age/Sex: 78 / M Date of Service: 02/02/24 Loc: ED Accession Number: [id number] Procedure: CT head/brain wo con Ordering Provider: Myla Pereira D.O. PROCEDURE: CT HEAD/BRAIN WO CON INDICATIONS: fall off bed hit head TECHNIQUE: Noncontrast 4.5 mm thick angled axial sections acquired from the foramen magnum to the vertex, with coronal and sagittal reformats. For radiation dose reduction, the following was used: automated exposure control, adjustment of mA and/or kV according to patient size. COMPARISON: None. FINDINGS: Image quality: Diagnostic. CSF spaces: Basal cisterns are patent. No extra-axial fluid collections. Ventricles are normal in size and shape. Brain: No midline shift. No intracranial masses or hemorrhage. Castillo-white matter interface is normal. Moderate cerebral and cerebellar volume loss with multifocal white matter chronic ischemic change noted. Atherosclerotic calcification noted associated with cavernous segments of both internal carotid arteries. Skull and face: Calvarium and visualized facial bones are intact, without suspicious lesions. Sinuses: Visualized sinuses and mastoids are clear. IMPRESSION: Atrophy and chronic ischemic change without intracranial hemorrhage or mass effect Approved by: Dionisio Mckeon M.D. on 02/02/2024 at 16:02 CT - cervical spine: Radiologist's Impression: Joe Boggs??78??M??1945 ? Allergy/Adv: No Known Drug Allergies Close Chest CTA (Signed) Dionisio Mckeon - 02/02/[address] (Signed) Dionisio Mckeon - 02/02/24 Chest X-Ray (Signed) MikeDionisio - 02/02/[address] (Signed) MikeDioinsio - 02/02/24 Fluoroscopy (Signed) Sharda Aquino - 01/21/24 PFT Result 12/07/23 Bladder Scan 10/24/23 PFT Result 08/03/23 DI Result CC 08/02/23 Radiology Report (Cancelled) Timoteo Marr - 07/17/23 Myocardial Perfusion Scan Nuc Med (Signed) Timoteo Marr - 07/17/23 Chest X-Ray (Signed) Abhijit Ugalde - 07/16/23 Chest X-Ray (Signed) Sharda Aquino - 07/02/23 Abdomen X-Ray (Signed) Awais Singletary - 04/27/23 Abdomen/Pelvis CT (Signed) Nena Snow - 04/26/23 Abdominal Arterial Study US (Signed) Cirilo Espinoza - 11/04/21 Launch?[address] [address] [address] Scan Report Signed Patient: Joe Boggs MR#: [id number] : 1945 Acct:[id number] Age/Sex: 78 / M Date of Service: 02/02/24 Loc: ED Accession Number: [id number] Procedure: CT cervical spine wo con Ordering Provider: Myla Pereira D.O. PROCEDURE: CT CERVICAL SPINE WO CON INDICATIONS: fall/hit head TECHNIQUE: Noncontrast 3 mm thick sections acquired from the skull base to the T4 level. Sagittal and coronal reformats were then constructed. For radiation dose reduction, the following was used: automated exposure control, adjustment of mA and/or kV according to patient size. COMPARISON: None. FINDINGS: Image quality: Excellent. Bones: No fractures or dislocations. Visualized superior ribs are intact. Straightening of the normal cervical lordosis present. Degenerative disc disease in the mid cervical spine. No significant central stenosis Soft tissues: Prevertebral soft tissues are normal in thickness. No paravertebral hematomas. No apical pneumothoraces. IMPRESSION: Degenerative disc disease and arthropathy without evidence of fracture or traumatic malalignment Approved by: Dionisio Mckeon M.D. on 02/02/2024 at 16:01 Chest x-ray: Radiologist's Impression: Joe Boggs??78??M??1945 ? Allergy/Adv: No Known Drug Allergies Close Chest CTA (Signed) Dionisio Mckeon - 02/02/[address] (Signed) Dionisio Mckeon - 02/02/24 Chest X-Ray (Signed) Dionisio Mckeon - 02/02/[address] (Signed) Antelmo Mckeonic - 02/02/24 Fluoroscopy (Signed) Sharda Aquino - 01/21/24 PFT Result 12/07/23 Bladder Scan 10/24/23 PFT Result 08/03/23 DI Result CC 08/02/23 Radiology Report (Cancelled) Timoteo Marr - 07/17/23 Myocardial Perfusion Scan Nuc Med (Signed) Timoteo Marr - 07/17/23 Chest X-Ray (Signed) Abhijit Ugalde - 07/16/23 Chest X-Ray (Signed) Sharda Aquino - 07/02/23 Abdomen X-Ray (Signed) HayderAwais - 04/27/23 Abdomen/Pelvis CT (Signed) Nena Snow - 04/26/23 Abdominal Arterial Study US (Signed) AlexisCirilo - 11/04/21 Launch?[facility] [address] [address] XRay Report Signed Patient: Joe Boggs MR#: [id number] : 1945 Acct:[id number] Age/Sex: 78 / M Date of Service: 02/02/24 Loc: ED Accession Number: [id number] Procedure: XR chest 1V Ordering Provider: Myla Pereira D.O. PROCEDURE: XR CHEST 1V INDICATIONS: chest pain TECHNIQUE: One view of the chest was acquired. COMPARISON: [facility], , XR CHEST 2V, 07/16/2023, 10:29. FINDINGS: Surgical changes and devices: None. Lungs and pleura: Lungs are clear. No pleural effusions or pneumothorax. Mediastinum: Mediastinal contours appear normal. Heart size is normal. Bones and chest wall: No suspicious bony lesions. Overlying soft tissues appear unremarkable. IMPRESSION: No acute cardiopulmonary abnormality is seen. Approved by: Dionisio Mckeon M.D. on 02/02/2024 at 16:06 CT scan - chest: Radiologist's Impression: Joe Boggs??78??M??1945 ? Allergy/Adv: No Known Drug Allergies Close Chest CTA (Signed) Dionisio Mckeon - 02/02/[address] (Signed) Dionisio Mckeon - 02/02/24 Chest X-Ray (Signed) Dionisio Mckeon - 02/02/[address] (Signed) MikeDionisio - 02/02/24 Fluoroscopy (Signed) Sharda Aquino - 01/21/24 PFT Result 12/07/23 Bladder Scan 10/24/23 PFT Result 08/03/23 DI Result CC 08/02/23 Radiology Report (Cancelled) Timoteo Marr - 07/17/23 Myocardial Perfusion Scan Nuc Med (Signed) Timoteo Marr - 07/17/23 Chest X-Ray (Signed) Abhijit Ugalde - 07/16/23 Chest X-Ray (Signed) Sharda Aquino - 07/02/23 Abdomen X-Ray (Signed) Awais Singletary - 04/27/23 Abdomen/Pelvis CT (Signed) Nena Snow - 04/26/23 Abdominal Arterial Study US (Signed) Cirilo Espinoza - 11/04/21 Launch?[place] [address] CT Scan Report Signed Patient: Joe Boggs MR#: [id number] : 1945 Acct:[id number] Age/Sex: 78 / M Date of Service: 02/02/24 Loc: ED Accession Number: [id number] Procedure: CT angio chest PE protocol Ordering Provider: Myla Pereira D.O. PROCEDURE: CT ANGIO CHEST PE PROTOCOL INDICATIONS: syncope, low O2 intermittent, indeterminant trop TECHNIQUE: After the administration of intravenous contrast, 2 mm thick sections acquired from the pulmonary apices to the posterior costophrenic angles. 3-dimensional maximum intensity projection (MIP) coronal and sagittal reformats were then acquired through the thorax. For radiation dose reduction, the following was used: automated exposure control, adjustment of mA and/or kV according to patient size. COMPARISON: None. FINDINGS: Image quality: Diagnostic. Pulmonary arteries: Pulmonary arteries are normal in size, and demonstrate no intraluminal filling defects to suggest central pulmonary embolism. Lower Neck: No enlarged lymph nodes. Thyroid: No thyroid nodules which require sonographic follow up, per consensus guidelines. Axillae: No enlarged lymph nodes. Chest Wall: Unremarkable. Bones: Unremarkable. Lungs and Pleura: No pneumothorax or pleural effusions. No consolidation or suspicious nodules. Heart: Heart size is normal. No pericardial effusion. Thoracic Vessels: No aortic aneurysm. Atherosclerotic vascular calcification noted in the aortic arch. Mediastinum and Lena: No enlarged lymph nodes. Esophagus: No wall thickening. No hiatal hernia. Upper Abdomen: Cholelithiasis without CT evidence of acute cholecystitis2 IMPRESSION: No pulmonary embolus. No acute cardiopulmonary process. Approved by: Dionisio Mckeon M.D. on 02/02/2024 at 16:50 ECG Data Attestation: I personally reviewed and interpreted this ECG as follows: MDM Narrative Medical decision making narrative: 78-year-old male signed out to myself by Dr. Perez, she will workup showed CBC with no acute changes, coags are negative dimer was 506 but is negative when age adjusted. Chemistry shows sodium 138 potassium of 4 3 chloride 95 CO2 of 38 with a BUN 29 creatinine 0.62, glucose is 110, LFTs are negative. Initial troponin is 0.06 and repeat was trending up slightly too 0.084 but still indeterminate range BNP is 304. Patient had head CT C-spine chest x-ray which did not show any changes. Patient had had a recent procedure was hypoxic which was new for him requiring a L intermittently, did have CT angio despite low D-dimer and was negative for PE or acute cardiopulmonary process there was no pneumonia or other lung changes noted. Does have some atherosclerotic vascular calcification in the aortic arch. Patient was seen and independently evaluated by myself patient's describes more of sort of a falling asleep. He has fallen but typically from a seated position. She states that he has had difficulty staying awake but is sometimes up all night. She describes some shaking of his extremities which is new or. Exact timeframe is little bit unclear she describes it new or timeframe. She does note they saw pulmonology and he was told that he has been retaining some CO2 on a outpatient ABG with Dr. Garduno. ABG was obtained and appears what looks to be acute on chronic hypercapnic respiratory failure, patient's pH is 7.195 with a pCO2 of 116, PO2 is 92% and a bicarb of 44, patient does have an ABG from 12/04/2023 that 1 had a pH 7.37 with a pCO2 of 52 PO2 82 but a bicarb of 31. Spoke with Dr. Hurley, who accepts patient for inpatient was placed on BiPAP at this point he does seem awake enough that he can pull it off he falls asleep easily but can easily conversive with me as well. Spoke with patient's family he is full code, they are okay with intubation if needed. Discussed with if his pCO2 continues to climb he has decreasing mentation he would likely end up intubated tonight. Plan for repeat ABG in an hour. Patient is to go up to the ICU at this time. Critical Care Time <Myla Pereira, DO - Last Filed: 02/02/24 19:43> Critical Care Time Critical Care Time: Yes Total Critical Care Time: 35 Attestation: The high probability of a clinically significant, sudden or life threatening deterioration of the cardiac and pulmonary system(s) required my full and direct attention, intervention and personal management. The aggregate critical care time was [--] minutes. This time is in addition to time spent performing reported procedures but includes the following: [x] Data Review and interpretation [x] Patient assessment and monitoring of vital signs [x] Documentation [x] Medication orders and management Discharge Plan Departure Patient Disposition: Admitted As Inpatient Clinical Impression: Acute hypercapnic respiratory failure, Altered mental status Admit Date/Time: 02/02/24 19:27 Admit Provider: Erwin Hurley
[2024-02-02 15:03] LABS: Add Manual Diff / Slide Review NO; Basophils Absolute Auto 0 /uL (0-100); Basophils Percent Auto 0.2 % (0-2); Eosinophils Absolute Auto 0 /uL (0-450); Eosinophils Percent Auto 0.3 % (2-4); Hematocrit 46.2 % (41-53); Lymphocytes Absolute Auto 800 /uL (1100-4500); Lymphocytes Percent Auto 11.7 % (25-40); Mean Corpuscular HGB Conc 32.5 % (30-36); Mean Corpuscular Hemoglobin 29.2 PG (26-34); Mean Corpuscular Volume 89.8 fL (80-100); Monocytes Absolute Auto 1000 /uL (0-900); Neutrophils Absolute Auto 5100 /uL (1500-7000); Neutrophils Percent Auto 73.8 % (50-75); Platelet Count 172 X10^3/uL (150-400); Red Blood Cell Count 5.14 X10^6/uL (4.5-5.9); Red Cell Distribution Width 14.7 % (11.6-14.8); White Blood Cell Count 6.9 X10^3/uL (4.5-11.0)
[2024-02-02 15:14] LABS: INR 1.1 (0.9-1.3); Prothrombin Time 12.3 SECONDS (9.4-12.5)
[2024-02-02 15:17] LABS: PTT Partial Thromboplastin Tim 34 SECONDS (25.1-36.5)
[2024-02-02 15:18] LABS: Alanine Aminotransferase 40 IU/L (<50); Albumin 3.9 g/dL (3.5-5.0); Albumin Globulin Ratio 1.3 (1.0-2.8); Alkaline Phosphatase 72 U/L (38-126); Aspartate Aminotransferase 33 IU/L (17-59); BUN Creatinine Ratio 46.8 (6-22); Bilirubin Total 0.5 mg/dL (0.2-1.3); Blood Urea Nitrogen 29 mg/dL (9-20); Calcium 8.4 mg/dL (8.4-10.2); Chloride 95 mmol/L (98-107); Creatine Kinase 63 U/L (55-170); Estimated Glomerular Filt Rate > 60 mL/min (>60); Globulin 2.9 g/dL (1.7-4.1); Glucose 110 mg/dL (80-110); HEMOLYSIS < 15 (0-50); Lipase 80 U/L (23-300); Magnesium 2.2 mg/dL (1.6-2.3); Potassium 4.3 mmol/L (3.4-5.1); Sodium 138 mmol/L (137-145); Total Protein 6.8 g/dL (6.3-8.2)
[2024-02-02 15:23] LABS: D Dimer 506 ng/ml (<500)
[2024-02-02 15:25] LABS: Carbon Dioxide 38 mmol/L (22-32)
[2024-02-02 15:45] LABS: Appearance Urine UA SL CLOUDY; Bilirubin Urine UA NEGATIVE (NEGATIVE); Color Urine UA YELLOW; Glucose Urine UA NEGATIVE (Negative); Ketones Urine UA NEGATIVE (NEGATIVE); Leukocyte Esterase Urine UA TRACE (NEGATIVE); Nitrite Urine UA NEGATIVE (Negative); Occult Blood Urine UA 3+ (Negative); Protein Urine UA 2+ (Negative)
[2024-02-02 15:54] LABS: Bacteria Urine Occasional (0-1); Culture Indicated Urine Specimen Cultured; Mucus Urine 2+ (Negative); RBC Urine 30-100/HPF (0-5/HPF); Squamous Epithelial Cell Urine 0-1 /HPF (0-5/HPF); Urine Volume 10mL (spun); WBC Urine 5-10/HPF (0-5/HPF)
--- NOTE | 2024-02-02 16:32 | DI.CT.S_ITS ---
PROCEDURE: CT ANGIO CHEST PE PROTOCOL INDICATIONS: syncope, low O2 intermittent, indeterminant trop TECHNIQUE: After the administration of intravenous contrast, 2 mm thick sections acquired from the pulmonary apices to the posterior costophrenic angles. 3-dimensional maximum intensity projection (MIP) coronal and sagittal reformats were then acquired through the thorax. For radiation dose reduction, the following was used: automated exposure control, adjustment of mA and/or kV according to patient size. COMPARISON: None. FINDINGS: Image quality: Diagnostic. Pulmonary arteries: Pulmonary arteries are normal in size, and demonstrate no intraluminal filling defects to suggest central pulmonary embolism. Lower Neck: No enlarged lymph nodes. Thyroid: No thyroid nodules which require sonographic follow up, per consensus guidelines. Axillae: No enlarged lymph nodes. Chest Wall: Unremarkable. Bones: Unremarkable. Lungs and Pleura: No pneumothorax or pleural effusions. No consolidation or suspicious nodules. Heart: Heart size is normal. No pericardial effusion. Thoracic Vessels: No aortic aneurysm. Atherosclerotic vascular calcification noted in the aortic arch. Mediastinum and Lena: No enlarged lymph nodes. Esophagus: No wall thickening. No hiatal hernia. Upper Abdomen: Cholelithiasis without CT evidence of acute cholecystitis2 IMPRESSION: No pulmonary embolus. No acute cardiopulmonary process. Approved by: Dionisio Mckeon M.D. on 02/02/2024 at 16:50
[2024-02-02 17:07] LABS: NT-proBNP (BNP-Adult 18+) 304 pg/mL (<450)
[2024-02-02 17:09] LABS: Troponin I 0.084 ng/mL (0.01-0.034)
--- NOTE | 2024-02-02 19:29 | CM.DANOTE ---
DCP Assessment Note Pt is a 78yo male, resident of [facility], presents to the ED for syncope. It is reported that pt fell asleep and fell off the couch, ultimately hitting head on the floor. Pt lives with his spouse who is also his DPOA. Pt was previously admitted on 01/08/24 for a prostate resection with aquablation. Pt's primary care provider is Dr. Eduardo Torres and insurance is [employer]. Reviewed chart and discussed pt with care team in ED for pt's medical status and initial discharge needs. ED MUD JACK NOZZLE WORKER attempted to meet with pt and spouse at bedside, twice, but pt was working with Respiratory Therapist to initiate BiPAP. No barriers at discharge are identified at this time. Plan: Pt to be admitted inpatient for respiratory failure. CM team will plan to follow clinical course closely for assessment of need and coordination of discharge plan. NICANOR Sidhu Discharge Planning/Care Management CM Discharge Assessment Start: 02/02/24 19:14 Freq: Status: Active Protocol: Document 02/02/24 19:14 MW (Rec: 02/02/24 19:22 MW [id number]) Discharge Planning Assessment Assigned Reimbursement Director TAYLOR Dyer DPOA/Assigned Designee Name Carmelita Spouse Contact Information [phone] Advance Directives? Yes: POLST Advance Directives on File Yes History Provided By Patient,Medical Record Has Patient been admitted in last 30 Yes days? Comment Pt was admitted for observation on 01/08/24 for prostate hyperplasia. Prior Living Arrangements House Household Members spouse Type of transporation used prior to Drives own vehicle admit Independent with ADL's Yes Is patient alert and oriented? Yes Caregiver for Another No Comment Anticipating discharging home with spouse. Discharge Plan Home Transportation Arrangement Spouse Referrals Initiated None needed Please Provide Date Initial DC 02/02/24 Assessment Was Performed Next Review Type Continued Stay Review
[2024-02-02] MEDS: ALBUTEROL/IPRATROPIUM 3 ML AMPUL INH (19:47)
--- NOTE | 2024-02-02 20:09 | P.HP_ITS ---
History of Present Illness History of Present Illness Date Patient Seen: 02/02/24 Time Patient Seen: 19:20 Chief complaint: fall off couch hit head, no thinners Narrative: 78 yo male, patient of Dr. Torres, admitted via ED with hypercapnia. Presented with falls, likely due to LOC. H/O hypercapnia (pCO2 50+ prior), now 110+ with pH 7.17. Etiology of respiratory issues unclear, extrathoracic restriction per pulmonary medicine. Also maybe some degree of obstruction, albuterol and steroid inhalers seem to help subjectively, minimal on PFTs, however. No recent respiratory symptoms such as cough fever chills sore throat etcetera. No findings to suggest infectious etiology on ER evaluation. Clearly somnolent in ED, started on BiPAP and admitted. Patient also recently (January 08) discharged after urologic procedure (Aquablation for BPH/LUTS), possible contributing factor. Neg workup in ED for PE or other acute respiratory infection, etc. PFSH Medical History Incomplete bladder emptying Urinary retention Bladder calculi History of nephrolithiasis BPH w urinary obs/LUTS H/O nephrolithotomy with removal of calculi Renal disease Heart attack Kidney stones Enlarged prostate Hypercholesteremia Surgical History History of coronary artery stent placement Family History Mother Cancer CAD in [place] artery Hypertension Social History marital status: number of children: 1 household members: spouse Smoking Status: Former smoker alcohol intake: current Type(s) of exercise: walking frequency: 1-2 times per week Meds Home Medications and Allergies Home Medications Medication Instructions Recorded Confirmed Type cholecalciferol (vitamin D3) 50 50 mcg PO DAILY 11/27/22 02/02/24 History mcg (2,000 unit) capsule (Vitamin D3) fluticasone 250 mcg-salmeterol 50 1 inh inhalation BID #60 ea 08/14/23 02/02/24 Rx mcg/dose blistr powdr for inhalation inhalational spacing device #1 ea 11/14/23 02/02/24 Rx (Aerochamber MV spacer) albuterol sulfate 90 mcg/actuation 2 puff inhalation Q4H PRN Wheezing 01/08/24 02/02/24 History aerosol inhaler ketoconazole 2 % shampoo 1 applic topical DAILY 01/08/24 02/02/24 History rosuvastatin 10 mg tablet 10 mg PO DAILY 01/08/24 02/02/24 History docusate sodium 100 mg capsule 100 mg PO BID PRN Constipation 02/02/24 02/02/24 History tamsulosin 0.4 mg capsule 0.4 mg PO DAILY 02/02/24 02/02/24 History Allergies Allergy/AdvReac Type Severity Reaction Status Date / Time No Known Drug Allergies Allergy Verified 01/07/24 11:57 Review of Systems Review of Systems ROS: Yes unobtainable due to mental status Exam Vital Signs (past 8 hours): - 02/02/24 14:28 02/02/24 14:52 02/02/24 14:53 Temperature 98.1 F Pulse Rate 81 91 H 89 Respiratory Rate 18 Blood Pressure 130/60 Pulse Oximetry 94 89 L 89 L Oxygen Delivery Method Room Air Room Air Room Air Oxygen Flow Rate Fraction of Inspired Oxygen 02/02/24 14:53 02/02/24 15:00 02/02/24 15:00 Temperature Pulse Rate 89 Respiratory Rate 35 H Blood Pressure 149/70 H 131/58 L Pulse Oximetry 93 Oxygen Delivery Method Oxygen Flow Rate Fraction of Inspired Oxygen 02/02/24 15:30 02/02/24 15:31 02/02/24 15:31 Temperature Pulse Rate 96 H 94 H Respiratory Rate 38 H 44 H Blood Pressure 156/74 H Pulse Oximetry 91 93 Oxygen Delivery Method Nasal Cannula Nasal Cannula Oxygen Flow Rate 1 1 Fraction of Inspired Oxygen 02/02/24 15:36 02/02/24 15:36 02/02/24 16:00 Temperature Pulse Rate 90 83 Respiratory Rate 41 H 39 H Blood Pressure 146/70 H Pulse Oximetry 94 91 Oxygen Delivery Method Oxygen Flow Rate Fraction of Inspired Oxygen 02/02/24 16:01 02/02/24 16:01 02/02/24 16:30 Temperature Pulse Rate 85 Respiratory Rate 39 H Blood Pressure 199/84 H 173/83 H Pulse Oximetry 92 Oxygen Delivery Method Oxygen Flow Rate Fraction of Inspired Oxygen 02/02/24 16:30 02/02/24 16:52 02/02/24 16:52 Temperature Pulse Rate 85 95 H Respiratory Rate 37 H 37 H Blood Pressure 167/71 H Pulse Oximetry 92 93 Oxygen Delivery Method Nasal Cannula Oxygen Flow Rate 1 1 Fraction of Inspired Oxygen 02/02/24 17:00 02/02/24 17:00 02/02/24 17:57 Temperature Pulse Rate 91 H 84 Respiratory Rate 36 H 36 H Blood Pressure 148/65 H Pulse Oximetry 94 93 Oxygen Delivery Method Nasal Cannula Oxygen Flow Rate 1 Fraction of Inspired Oxygen 02/02/24 17:59 02/02/24 17:59 02/02/24 18:00 Temperature Pulse Rate 89 Respiratory Rate 38 H Blood Pressure 169/72 H 155/76 H Pulse Oximetry 91 Oxygen Delivery Method Nasal Cannula Oxygen Flow Rate 1 Fraction of Inspired Oxygen 02/02/24 18:00 02/02/24 18:30 02/02/24 18:31 Temperature Pulse Rate 93 H 84 Respiratory Rate 41 H 35 H Blood Pressure 191/84 H Pulse Oximetry 93 93 Oxygen Delivery Method Nasal Cannula Oxygen Flow Rate 1 Fraction of Inspired Oxygen 02/02/24 18:31 02/02/24 19:25 Temperature Pulse Rate 82 Respiratory Rate 34 H Blood Pressure 92/62 Pulse Oximetry 93 Oxygen Delivery Method Oxygen Flow Rate Fraction of Inspired Oxygen 21 Fraction of Inspired Oxygen 21 Oxygen Delivery Method Nasal Cannula Oxygen Flow Rate 1 Narrative Exam Narrative: Elderly male breathing very rapidly and shallowly HEENT-unremarkable Lungs-diminished breath sounds Heart-regular rate and rhythm Abdomen-benign Neuro-somnolent somewhat arousable follows simple commands no focal findings Objective Labs 02/03/24 03:20 02/03/24 03:20 Labs: Laboratory Results - last 24 hr 02/02/24 02/02/24 02/02/24 14:45 15:30 16:40 WBC 6.9 RBC 5.14 Hgb 15.0 Hct 46.2 MCV 89.8 MCH 29.2 MCHC 32.5 RDW 14.7 Plt Count 172 Neut % (Auto) 73.8 Lymph % (Auto) 11.7 L [place] % (Auto) 14.0 Eos % (Auto) 0.3 L Baso % (Auto) 0.2 Neut # (Auto) 5100 Lymph # (Auto) 800 L [place] # (Auto) 1000 H Eos # (Auto) 0 Baso # (Auto) 0 PT 12.3 INR 1.1 APTT 34 D-Dimer 506 H Sodium 138 Potassium 4.3 Chloride 95 L Carbon Dioxide 38 H BUN 29 H Creatinine 0.62 L Estimated GFR > 60 BUN/Creatinine Ratio 46.8 H Glucose 110 Calcium 8.4 Magnesium 2.2 Total Bilirubin 0.5 AST 33 ALT 40 Alkaline Phosphatase 72 Total Creatine Kinase 63 Troponin I 0.060 H 0.084 H NT-Pro-B Natriuret Pep 304 Total Protein 6.8 Albumin 3.9 Globulin 2.9 Albumin/Globulin Ratio 1.3 Lipase 80 Urine Color Yellow Urine Appearance Sl cloudy Urine pH 6.0 Ur Specific [place] 1.020 Urine Protein 2+ H Urine Glucose (UA) Negative Urine Ketones Negative Urine Occult Blood 3+ H Urine Nitrate Negative Urine Bilirubin Negative Urine Urobilinogen 1.0 Ur Leukocyte Esterase Trace H Urine RBC 30-100/hpf H Urine WBC 5-10/hpf H Ur Squamous Epith Cells 0-1 /hpf Urine Bacteria Occasional (0-1) Urine Mucus 2+ H Ur Culture Indicated? Specimen cultured Vol Urine Centrifuged 10ml (spun) Assessment & Plan Assessment & Plan narrative: 1. Acute on chronic hypercapnic respiratory failure- initiate BiPAP, given clinical history of benefit from steroid and bronchodilator, will also add albuterol and IV solumedrol. If not improving on ABG, may need intubation (doubt). Suggest Pulmonary inpatient consult when available next week 2. Indeterminate troponin- uncertain etiology. Doubt active coronary issue. Trend for now, if rising to abnormal level, consider anticoag and cardiology eval. 3. s/p recent Aquablation for BPH/LUTS- monitor urine output etc. Continue meds as per urology at time of discharge after procedure 4. VTE prophylaxis- lovenox ordered 5. Code Status - full code, including intubation if necessary, as per family/ED discussion [facility] Charge Codes Initial inpatient/observation care: 00990
[2024-02-02 20:11] LABS: HCO3 ABG 45 mmol/L (23-27); PO2 ABG 92 mmHg (80-100); TCO2 ABG 48 mmol/L (23-27)
[2024-02-02 20:12] LABS: Allen Test for ABG Passed? Yes, Passed; Blood Gas Collection Site Right Radial; Fractionated Inspired Oxygen 26; Oxygen Saturation ABG 94 % (95-100)
[2024-02-02 21:06] LABS: PCO2 ABG 70.7 mmHg (35-45); PO2 ABG 69 mmHg (80-100); pH ABG 7.34 (7.35-7.45)
[2024-02-02 21:07] LABS: Blood Gas Collection Site Right Radial; Fractionated Inspired Oxygen 21; HCO3 ABG 38 mmol/L (23-27); Oxygen Saturation ABG 91 % (95-100); TCO2 ABG 40 mmol/L (23-27)
[2024-02-02 21:08] LABS: Allen Test for ABG Passed? Yes, Passed
[2024-02-02 21:36] LABS: PCO2 ABG > 86.0 mmHg (35-45)
[2024-02-02] MEDS: methylPREDNISolone 125 MG/2 ML VIAL 60 MG IV (22:35)
[2024-02-02] MEDS: DEXTROSE 5%-0.9% NS 1,000 ML 100 ML IV (22:36)
[2024-02-03] VITALS (32 sets, daily range): BP systolic 110–150; BP diastolic 58–93; PULSE 67–112; RESP 14–52; TEMP 31.1–37.4; O2SAT 90–98
[2024-02-03 00:04] LABS: MRSA (Nasal) PCR NOT DETECTED (Not Detect)
[2024-02-03] MEDS: ALBUTEROL 2.5 MG/3 ML NEB (ADULT) INH ×4 (00:14→20:33)
--- NOTE | 2024-02-03 00:51 | P.TELICUCN_ITS ---
History of Present Illness Consult details IF CAMERA ACTIVATED, patient seen via real-time interactive audiovisual communication: Camera activated Chief complaint: fall off couch hit head, no thinners Consent obtained for tele-inspector and unloader care: Yes Patient Location: ICU Provider location (State): [place] Other participants/roles: RN Narrative: 78-year-old male, former smoker with PMHx of CAD/PCI, restrictive lung disease/chronic hypercarbic respiratory failure, asthma, urinary retention, hyperlipidemia who presented to ED w/ multiple syncopal episodes. He had another mechanical fall night prior to presentation ~ 0300. In EDL WBC normal, troponin-I 0.060-->0.084, NT-pro-BNP 304, NCHCT/neck CT (-). Chest CTA (-) for PE/pneumonia. AB.20/>86/92/45/91%. UA w/ trace LE; urine micro w/ 5-10 WBC/hpf and occasional bacteria. Urine culture reflexed. [facility] Medical History Incomplete bladder emptying Urinary retention Bladder calculi History of nephrolithiasis BPH w urinary obs/LUTS H/O nephrolithotomy with removal of calculi Renal disease Heart attack Kidney stones Enlarged prostate Hypercholesteremia Surgical History History of coronary artery stent placement Family History Mother Cancer CAD in [place] artery Hypertension Social History marital status: number of children: 1 household members: spouse Smoking Status: Former smoker alcohol intake: current Type(s) of exercise: walking frequency: 1-2 times per week Current Medications Current Medications Medications: Home Medications cholecalciferol (vitamin D3) 50 mcg (2,000 unit) capsule (Vitamin D3) 50 mcg PO DAILY 11/27/22 [History Confirmed 02/02/24] fluticasone 250 mcg-salmeterol 50 mcg/dose blistr powdr for inhalation 1 inh inhalation BID #60 ea 08/14/23 [Rx Confirmed 02/02/24] inhalational spacing device (Aerochamber MV spacer) #1 ea 11/14/23 [Rx Confirmed 02/02/24] albuterol sulfate 90 mcg/actuation aerosol inhaler 2 puff inhalation Q4H PRN Wheezing 01/08/24 [History Confirmed 02/02/24] ketoconazole 2 % shampoo 1 applic topical DAILY 01/08/24 [History Confirmed 02/02/24] rosuvastatin 10 mg tablet 10 mg PO DAILY 01/08/24 [History Confirmed 02/02/24] docusate sodium 100 mg capsule 100 mg PO BID PRN Constipation 02/02/24 [History Confirmed 02/02/24] tamsulosin 0.4 mg capsule 0.4 mg PO DAILY 02/02/24 [History Confirmed 02/02/24] Visit Medications (administered) Generic Name Dose Route Start Last Admin Trade Name Freq PRN Reason Stop Dose Admin Albuterol 2.5 mg 02/02/24 23:00 02/03/24 00:14 Albuterol 2.5 Mg/3 Ml Neb (Adult) INH 2.5 mg [id number] CARLOS Administration Dextrose/Sodium Chloride 1,000 mls @ 100 mls/hr 02/02/24 21:21 02/02/24 22:36 Dextrose 5%-0.9% Ns IV 100 mls/hr CONT CARLOS Administration Methylprednisolone 60 mg 02/02/24 21:21 02/02/24 22:35 Methylprednisolone 125 Mg/2 Ml Vial IV 60 mg Q8H CARLOS Administration Exam Vital Signs (past 8 hours): - 02/02/24 16:52 02/02/24 16:52 02/02/24 17:00 Temperature Pulse Rate 95 H Respiratory Rate 37 H Blood Pressure 167/71 H 148/65 H Pulse Oximetry 93 Oxygen Delivery Method Oxygen Flow Rate 1 Fraction of Inspired Oxygen 02/02/24 17:00 02/02/24 17:57 02/02/24 17:59 Temperature Pulse Rate 91 H 84 89 Respiratory Rate 36 H 36 H 38 H Blood Pressure Pulse Oximetry 94 93 91 Oxygen Delivery Method Nasal Cannula Nasal Cannula Oxygen Flow Rate 1 1 Fraction of Inspired Oxygen 02/02/24 17:59 02/02/24 18:00 02/02/24 18:00 Temperature Pulse Rate 93 H Respiratory Rate 41 H Blood Pressure 169/72 H 155/76 H Pulse Oximetry 93 Oxygen Delivery Method Nasal Cannula Oxygen Flow Rate 1 Fraction of Inspired Oxygen 02/02/24 18:30 02/02/24 18:31 02/02/24 18:31 Temperature Pulse Rate 84 82 Respiratory Rate 35 H 34 H Blood Pressure 191/84 H Pulse Oximetry 93 93 Oxygen Delivery Method Oxygen Flow Rate Fraction of Inspired Oxygen 02/02/24 19:00 02/02/24 19:25 02/02/24 19:30 Temperature Pulse Rate 93 H 90 Respiratory Rate 42 H 28 H Blood Pressure 92/62 Pulse Oximetry 94 96 Oxygen Delivery Method Oxygen Flow Rate Fraction of Inspired Oxygen 21 02/02/24 19:30 02/02/24 19:41 02/02/24 20:00 Temperature Pulse Rate Respiratory Rate Blood Pressure 92/62 95/70 Pulse Oximetry Oxygen Delivery Method BiPAP Oxygen Flow Rate Fraction of Inspired Oxygen 02/02/24 20:00 02/02/24 20:30 02/02/24 20:31 Temperature Pulse Rate 83 79 Respiratory Rate 29 H 40 H Blood Pressure 105/68 Pulse Oximetry 96 98 Oxygen Delivery Method Oxygen Flow Rate Fraction of Inspired Oxygen 02/02/24 20:31 02/02/24 21:02 02/02/24 21:04 Temperature Pulse Rate 79 75 Respiratory Rate 37 H 29 H Blood Pressure 110/61 Pulse Oximetry 98 97 Oxygen Delivery Method Oxygen Flow Rate Fraction of Inspired Oxygen 02/02/24 21:04 02/02/24 21:05 02/02/24 21:05 Temperature 98.0 F Pulse Rate 76 75 Respiratory Rate 26 H Blood Pressure 116/56 L Pulse Oximetry 84 L 98 Oxygen Delivery Method Oxygen Flow Rate 0 Fraction of Inspired Oxygen 02/02/24 21:22 02/02/24 21:22 02/02/24 22:00 Temperature Pulse Rate Respiratory Rate Blood Pressure 116/56 L 104/62 Pulse Oximetry 93 Oxygen Delivery Method BiPAP Oxygen Flow Rate Fraction of Inspired Oxygen 21 21 02/02/24 22:00 02/02/24 23:00 02/03/24 00:00 Temperature Pulse Rate 73 81 Respiratory Rate 18 27 H Blood Pressure 106/59 L 110/61 Pulse Oximetry 97 93 Oxygen Delivery Method Oxygen Flow Rate 0 0 Fraction of Inspired Oxygen 02/03/24 00:00 02/03/24 00:05 Temperature 99.3 F Pulse Rate 76 Respiratory Rate 18 Blood Pressure 110/61 Pulse Oximetry 95 Oxygen Delivery Method Oxygen Flow Rate 0 Fraction of Inspired Oxygen 21 Fraction of Inspired Oxygen 21 SaO2/FiO2 Ratio 442 Oxygen Delivery Method BiPAP Oxygen Flow Rate 0 Const General: other (no distress) Resp Other: NIPPV 15/6 FIO2 21% RR 14 Objective Labs 02/02/24 14:45 02/02/24 14:45 Labs: Laboratory Results - last 24 hr 02/02/24 02/02/24 02/02/24 14:45 15:30 16:40 WBC 6.9 RBC 5.14 Hgb 15.0 Hct 46.2 MCV 89.8 MCH 29.2 MCHC 32.5 RDW 14.7 Plt Count 172 Neut % (Auto) 73.8 Lymph % (Auto) 11.7 L [place] % (Auto) 14.0 Eos % (Auto) 0.3 L Baso % (Auto) 0.2 Neut # (Auto) 5100 Lymph # (Auto) 800 L [place] # (Auto) 1000 H Eos # (Auto) 0 Baso # (Auto) 0 PT 12.3 INR 1.1 APTT 34 D-Dimer 506 H ABG Sample Site ABG pH ABG pCO2 ABG pO2 ABG HCO3 ABG Total CO2 ABG O2 Saturation ABG Base Excess FiO2 Sodium 138 Potassium 4.3 Chloride 95 L Carbon Dioxide 38 H BUN 29 H Creatinine 0.62 L Estimated GFR > 60 BUN/Creatinine Ratio 46.8 H Glucose 110 Calcium 8.4 Magnesium 2.2 Total Bilirubin 0.5 AST 33 ALT 40 Alkaline Phosphatase 72 Total Creatine Kinase 63 Troponin I 0.060 H 0.084 H NT-Pro-B Natriuret Pep 304 Total Protein 6.8 Albumin 3.9 Globulin 2.9 Albumin/Globulin Ratio 1.3 Lipase 80 Urine Color Yellow Urine Appearance Sl cloudy Urine pH 6.0 Ur Specific [place] 1.020 Urine Protein 2+ H Urine Glucose (UA) Negative Urine Ketones Negative Urine Occult Blood 3+ H Urine Nitrate Negative Urine Bilirubin Negative Urine Urobilinogen 1.0 Ur Leukocyte Esterase Trace H Urine RBC 30-100/hpf H Urine WBC 5-10/hpf H Ur Squamous Epith Cells 0-1 /hpf Urine Bacteria Occasional (0-1) Urine Mucus 2+ H Ur Culture Indicated? Specimen cultured Vol Urine Centrifuged 10ml (spun) Nasal Screen MRSA (PCR) 02/02/24 02/02/24 02/02/24 19:12 20:23 21:15 WBC RBC Hgb Hct MCV MCH MCHC RDW Plt Count Neut % (Auto) Lymph % (Auto) [place] % (Auto) Eos % (Auto) Baso % (Auto) Neut # (Auto) Lymph # (Auto) [place] # (Auto) Eos # (Auto) Baso # (Auto) PT INR APTT D-Dimer ABG Sample Site Right radial Right radial ABG pH 7.20 L* 7.34 L ABG pCO2 > 86.0 H* 70.7 H* ABG pO2 92 69 L ABG HCO3 45 H 38 H ABG Total CO2 48 H 40 H ABG O2 Saturation 94 L 91 L ABG Base Excess 17.0 H 12.0 H FiO2 26 21 Sodium Potassium Chloride Carbon Dioxide BUN Creatinine Estimated GFR BUN/Creatinine Ratio Glucose Calcium Magnesium Total Bilirubin AST ALT Alkaline Phosphatase Total Creatine Kinase Troponin I NT-Pro-B Natriuret Pep Total Protein Albumin Globulin Albumin/Globulin Ratio Lipase Urine Color Urine Appearance Urine pH Ur Specific [place] Urine Protein Urine Glucose (UA) Urine Ketones Urine Occult Blood Urine Nitrate Urine Bilirubin Urine Urobilinogen Ur Leukocyte Esterase Urine RBC Urine WBC Ur Squamous Epith Cells Urine Bacteria Urine Mucus Ur Culture Indicated? Vol Urine Centrifuged Nasal Screen MRSA (PCR) Not detected Assessment & Plan Assessment and plan (1) Acute and chronic respiratory failure with hypercapnia: Status: Acute Plan: -Agree w/ NIPPV -Agree w/ Duonebs -Agree w/ methylprednisolone -Cancelled PRN Ativan order -Fluid-conservative strategy (2) Abnormal urinalysis: Status: Acute Plan: -Follow up reflexed urine culture -Check procalcitonin in AM -Observe off antibiotics Plan #ICU best practices -Enoxaparin VTE chemoprophylaxis I spent a total of 35 minutes of aggregate critical care time on this patient's care today exclusive of procedural time. Telemedicine consent: in chart Physician distant site: [place] Persons involved: pt Patient seen via two-way interactive audiovisual telecommunication.
--- NOTE | 2024-02-03 01:38 | PC.NURSE ---
Patient arrived from EDat 2100, on BiPAP set at 17/7, 21% O2, Spo2 92-94%, alert, oriented x4, tolerating BiPAP, no c/o pain, in no distress, condom catheter in place draining concentrated urine, D5NS infusing at 100ml/hr. Dr. Hurley and Tele ICU made aware.
[2024-02-03 03:42] LABS: Add Manual Diff / Slide Review NO; Basophils Absolute Auto 0 /uL (0-100); Basophils Percent Auto 0.1 % (0-2); Eosinophils Absolute Auto 0 /uL (0-450); Hematocrit 45.3 % (41-53); Hemoglobin 14.5 g/dL (13.5-17.5); Lymphocytes Absolute Auto 300 /uL (1100-4500); Lymphocytes Percent Auto 4.8 % (25-40); Mean Corpuscular Hemoglobin 28.6 PG (26-34); Mean Corpuscular Volume 89.1 fL (80-100); Monocytes Absolute Auto 100 /uL (0-900); Monocytes Percent Auto 1.9 % (3-14); Neutrophils Absolute Auto 5500 /uL (1500-7000); Neutrophils Percent Auto 93.2 % (50-75); Platelet Count 151 X10^3/uL (150-400); Red Blood Cell Count 5.09 X10^6/uL (4.5-5.9); Red Cell Distribution Width 14.6 % (11.6-14.8); White Blood Cell Count 5.9 X10^3/uL (4.5-11.0)
[2024-02-03 03:48] LABS: BUN Creatinine Ratio 35.6 (6-22); Blood Urea Nitrogen 21 mg/dL (9-20); Calcium 8.4 mg/dL (8.4-10.2); Carbon Dioxide 36 mmol/L (22-32); Chloride 100 mmol/L (98-107); Estimated Glomerular Filt Rate > 60 mL/min (>60); Glucose 137 mg/dL (80-110); HEMOLYSIS < 15 (0-50); Potassium 4.2 mmol/L (3.4-5.1); Sodium 137 mmol/L (137-145)
[2024-02-03 04:00] LABS: Troponin I 0.099 ng/mL (0.01-0.034)
[2024-02-03] MEDS: methylPREDNISolone 125 MG/2 ML VIAL 60 MG IV ×3 (04:54→21:10)
--- NOTE | 2024-02-03 06:21 | RT ---
Patient initiated on BIPAP after ABG with elevated PCO2 > reportable range of 89. Settings initally at PCV 16/7 but increased to 17/7 to maintain tidal volumes greater than 200. FIO2 weaned down from 28% to 21% to keep SPO2 > 88%. Back up rate initally at 18. ABG's improved after an hour on these settings with PCO2 down to 70 and PH to 7.33. after several hours on these settings patient's volumes increased significantly to 800-900. Subusquently decreased pressures to 16/6 to bring his tidal volumes back down to mid 400-500 range. RR was irregular going from riding at base rate of 14 to breathing 40 and then back down again. Volumes all over from 200-600 along with respiratory rate. Did return pressures up to 16/8 and increased back up rate to 16 due to fluctuations in minute volume with irregular rate and volumes. Patient aware and appropriate asking how he got here and when he can come off the BIPAP. BS diminished but clear. Albuterol given Q4W/A via aerogen in line of BIPAP.
[2024-02-03 07:23] LABS: Procalcitonin 0.08 ng/mL (<0.5)
[2024-02-03] MEDS: ATORVASTATIN 20 MG TABLET PO (08:46)
[2024-02-03] MEDS: TAMSULOSIN 0.4 MG CAPSULE PO ×2 (08:46→21:10)
[2024-02-03] MEDS: ENOXAPARIN 40 MG/0.4 ML SYRINGE SUBCUT (08:46)
[2024-02-03 08:48] LABS: Allen Test for ABG Passed? Yes, Passed; Blood Gas Collection Site Right Radial; Fractionated Inspired Oxygen 21; HCO3 ABG 30 mmol/L (23-27); Oxygen Saturation ABG 98 % (95-100); PCO2 ABG 26.6 mmHg (35-45); PO2 ABG 83 mmHg (80-100); TCO2 ABG 31 mmol/L (23-27)
[2024-02-03 08:50] LABS: pH ABG 7.66 (7.35-7.45)
--- NOTE | 2024-02-03 09:12 | PM.EICU.INT ---
Teleintensivist Intervention Date/Time Was camera activated?: Yes Date Patient Seen: 02/03/24 Time Patient Seen: 09:12 Issue(s) Addressed Issue(s): Abnormal labs Other:: The patient was seen via audio-visual interaction. Bedside RN present. Reviewed medical chart and initial consultation note from eICU. The patient was on BiPAP overnight, just transitioned to NC. Most recent ABG this am noted, pH 7.66, PCO2 26, PaO2 83, Bicarb 36 (on BMP). This is consistent with mixed respiratory and metabolic alkalosis. Clinically, patient looks much improved per RN. The patient reports significant improvement in his SOB, very calm and comfortable, sitting up in bed, talking in full sentences. No new symptoms. Hemodynamically stable. Intervention(s) :: Plan to repeat ABG in 2 hours while on NC. Anticipate improvement in f/up ABG now given clinical improvement. Keep patient on NC for now. Order PO diet. Anticipate downgrade to [facility] telemetry floor later today if remains stable. Plan discussed with: Nurse
--- NOTE | 2024-02-03 10:08 | PM.PN.1 ---
Subjective Subjective Date Patient Seen: 02/03/24 Time Patient Seen: 10:08 Interval history: Patient with uneventful night. Clearly did much better on the BiPAP that is documented with his ABGs but his mental status has also cleared nicely Able to tell me this morning that he has been unable to sleep on his back for several weeks now. This seem to start actually prior to his urological surgery. In his mind there is no connection between the surgery and his decline although the time course does fit Verifies that there has been no cold or flu symptoms whatsoever He is currently sitting up eagerly eating breakfast without any real complaints. Been off BiPAP for an hour or so now. Still fairly tachypneic with shallow breathing and struggles to put more than 6 or 7 words into a sentence without stopping to breathe, but does not appear to be in distress by this Exam Vital Signs (past 8 hours): - 02/03/24 02:51 02/03/24 03:00 02/03/24 03:01 Temperature Pulse Rate 67 73 Respiratory Rate 25 H 27 H Blood Pressure 126/76 150/66 H Pulse Oximetry 93 93 Oxygen Delivery Method Oxygen Flow Rate 0 Fraction of Inspired Oxygen 02/03/24 03:01 02/03/24 04:00 02/03/24 04:14 Temperature 98.6 F Pulse Rate 72 Respiratory Rate 24 Blood Pressure 150/66 H 135/92 H 135/93 H Pulse Oximetry 95 Oxygen Delivery Method Oxygen Flow Rate 0 Fraction of Inspired Oxygen 02/03/24 05:00 02/03/24 05:00 02/03/24 06:00 Temperature Pulse Rate 73 73 Respiratory Rate 23 27 H Blood Pressure 131/64 Pulse Oximetry 92 92 Oxygen Delivery Method Oxygen Flow Rate 0 Fraction of Inspired Oxygen 02/03/24 06:00 02/03/24 06:18 02/03/24 07:00 Temperature Pulse Rate Respiratory Rate Blood Pressure 132/77 132/76 132/62 Pulse Oximetry Oxygen Delivery Method Oxygen Flow Rate 0 Fraction of Inspired Oxygen 02/03/24 07:00 02/03/24 07:00 02/03/24 08:00 Temperature Pulse Rate 75 Respiratory Rate 31 H Blood Pressure 125/70 Pulse Oximetry 98 Oxygen Delivery Method BiPAP Oxygen Flow Rate Fraction of Inspired Oxygen 02/03/24 08:00 02/03/24 08:00 02/03/24 09:00 Temperature 98.6 F Pulse Rate 77 72 Respiratory Rate 30 H 52 H Blood Pressure Pulse Oximetry 96 91 Oxygen Delivery Method Oxygen Flow Rate Fraction of Inspired Oxygen Fraction of Inspired Oxygen 21 SaO2/FiO2 Ratio 442 Oxygen Delivery Method BiPAP Oxygen Flow Rate 0 Narrative Exam Narrative: Lungs-diminished breath sounds but clear no wheezes or crackles, minimally tachypneic Objective Labs 02/03/24 03:20 02/03/24 03:20 Labs: Laboratory Results - last 24 hr 02/02/24 02/02/24 02/02/24 14:45 15:30 16:40 WBC 6.9 RBC 5.14 Hgb 15.0 Hct 46.2 MCV 89.8 MCH 29.2 MCHC 32.5 RDW 14.7 Plt Count 172 Neut % (Auto) 73.8 Lymph % (Auto) 11.7 L [place] % (Auto) 14.0 Eos % (Auto) 0.3 L Baso % (Auto) 0.2 Neut # (Auto) 5100 Lymph # (Auto) 800 L [place] # (Auto) 1000 H Eos # (Auto) 0 Baso # (Auto) 0 PT 12.3 INR 1.1 APTT 34 D-Dimer 506 H ABG Sample Site ABG pH ABG pCO2 ABG pO2 ABG HCO3 ABG Total CO2 ABG O2 Saturation ABG Base Excess FiO2 Sodium 138 Potassium 4.3 Chloride 95 L Carbon Dioxide 38 H BUN 29 H Creatinine 0.62 L Estimated GFR > 60 BUN/Creatinine Ratio 46.8 H Glucose 110 Calcium 8.4 Magnesium 2.2 Total Bilirubin 0.5 AST 33 ALT 40 Alkaline Phosphatase 72 Total Creatine Kinase 63 Troponin I 0.060 H 0.084 H NT-Pro-B Natriuret Pep 304 Total Protein 6.8 Albumin 3.9 Globulin 2.9 Albumin/Globulin Ratio 1.3 Lipase 80 Procalcitonin Urine Color Yellow Urine Appearance Sl cloudy Urine pH 6.0 Ur Specific [place] 1.020 Urine Protein 2+ H Urine Glucose (UA) Negative Urine Ketones Negative Urine Occult Blood 3+ H Urine Nitrate Negative Urine Bilirubin Negative Urine Urobilinogen 1.0 Ur Leukocyte Esterase Trace H Urine RBC 30-100/hpf H Urine WBC 5-10/hpf H Ur Squamous Epith Cells 0-1 /hpf Urine Bacteria Occasional (0-1) Urine Mucus 2+ H Ur Culture Indicated? Specimen cultured Vol Urine Centrifuged 10ml (spun) Nasal Screen MRSA (PCR) 02/02/24 02/02/24 02/02/24 19:12 20:23 21:15 WBC RBC Hgb Hct MCV MCH MCHC RDW Plt Count Neut % (Auto) Lymph % (Auto) [place] % (Auto) Eos % (Auto) Baso % (Auto) Neut # (Auto) Lymph # (Auto) [place] # (Auto) Eos # (Auto) Baso # (Auto) PT INR APTT D-Dimer ABG Sample Site Right radial Right radial ABG pH 7.20 L* 7.34 L ABG pCO2 > 86.0 H* 70.7 H* ABG pO2 92 69 L ABG HCO3 45 H 38 H ABG Total CO2 48 H 40 H ABG O2 Saturation 94 L 91 L ABG Base Excess 17.0 H 12.0 H FiO2 26 21 Sodium Potassium Chloride Carbon Dioxide BUN Creatinine Estimated GFR BUN/Creatinine Ratio Glucose Calcium Magnesium Total Bilirubin AST ALT Alkaline Phosphatase Total Creatine Kinase Troponin I NT-Pro-B Natriuret Pep Total Protein Albumin Globulin Albumin/Globulin Ratio Lipase Procalcitonin Urine Color Urine Appearance Urine pH Ur Specific [place] Urine Protein Urine Glucose (UA) Urine Ketones Urine Occult Blood Urine Nitrate Urine Bilirubin Urine Urobilinogen Ur Leukocyte Esterase Urine RBC Urine WBC Ur Squamous Epith Cells Urine Bacteria Urine Mucus Ur Culture Indicated? Vol Urine Centrifuged Nasal Screen MRSA (PCR) Not detected 02/03/24 02/03/24 03:20 08:40 WBC 5.9 RBC 5.09 Hgb 14.5 Hct 45.3 MCV 89.1 MCH 28.6 MCHC 32.0 RDW 14.6 Plt Count 151 Neut % (Auto) 93.2 H Lymph % (Auto) 4.8 L [place] % (Auto) 1.9 L Eos % (Auto) 0.0 L Baso % (Auto) 0.1 Neut # (Auto) 5500 Lymph # (Auto) 300 L [place] # (Auto) 100 Eos # (Auto) 0 Baso # (Auto) 0 PT INR APTT D-Dimer ABG Sample Site Right radial ABG pH 7.66 H* ABG pCO2 26.6 L ABG pO2 83 ABG HCO3 30 H ABG Total CO2 31 H ABG O2 Saturation 98 ABG Base Excess 10.0 H FiO2 21 Sodium 137 Potassium 4.2 Chloride 100 Carbon Dioxide 36 H BUN 21 H Creatinine 0.59 L Estimated GFR > 60 BUN/Creatinine Ratio 35.6 H Glucose 137 H Calcium 8.4 Magnesium Total Bilirubin AST ALT Alkaline Phosphatase Total Creatine Kinase Troponin I 0.099 H NT-Pro-B Natriuret Pep Total Protein Albumin Globulin Albumin/Globulin Ratio Lipase Procalcitonin 0.08 Urine Color Urine Appearance Urine pH Ur Specific [place] Urine Protein Urine Glucose (UA) Urine Ketones Urine Occult Blood Urine Nitrate Urine Bilirubin Urine Urobilinogen Ur Leukocyte Esterase Urine RBC Urine WBC Ur Squamous Epith Cells Urine Bacteria Urine Mucus Ur Culture Indicated? Vol Urine Centrifuged Nasal Screen MRSA (PCR) PFSH Medical History Incomplete bladder emptying Urinary retention Bladder calculi History of nephrolithiasis BPH w urinary obs/LUTS H/O nephrolithotomy with removal of calculi Renal disease Heart attack Kidney stones Enlarged prostate Hypercholesteremia Surgical History History of coronary artery stent placement Family History Mother Cancer CAD in [place] artery Hypertension Social History marital status: number of children: 1 household members: spouse Smoking Status: Former smoker alcohol intake: current Type(s) of exercise: walking frequency: 1-2 times per week Assessment & Plan Assessment & Plan narrative: 1. Acute on chronic hypercapnic respiratory failure-seems to be reversed with the use of the BiPAP overnight. Unclear as to etiology for this and or what might have made him worse in the short term. Still seem like a chronic problem that has been steadily worsening somehow I have to believe that the surgical procedure with the anesthesia and or postoperative care resulted in some worsening of his symptoms what is probably became more of a vicious cycle In any event he is much better now. Likely going to need some sort of nocturnal respiratory support overnight at home as probably 1 of the only ways to prevent this from recurring in the future Suggest pulmonary consultation when available hopefully tomorrow Continue albuterol plus steroids for now although per patient really the inhalers have been of questionable benefit to him as an outpatient and does not appear to be any true chronic lung disease going on here his ABG improved nicely once he was on BiPAP. 2. -no active issues at this time. Did have a positive UA but thus far cultures are negative. Continue to monitor for now 3. Cardiac-troponin remained in the indeterminate range. No evidence of complicating factor. Will not pursue further at this time Overall patient okay to probably be discharged from the tele tube molder fiberglass service but will continue monitor in the ICU least overnight to determine need for continued ventilatory support. Quality VTE Deep Vein Thrombosis/Pulmonary Embolism Present on Admission: No PROFEE Charge codes Subsequent inpatient/observation care: [id number]
--- NOTE | 2024-02-03 11:04 | CM.DPNOTE ---
DCP Note VACUUM WORKER reviewed EMR. Per chart review, no identified barriers for safe return home at dc when medically stable. Per RN report, pt A/Ox4, down graded to floor care, and has not ambulation concerns at this time. Pt likely here another few days and pt may need a resp assessment/equipment at home. No anticipate CM needs. Per Mei note, pt did well on BiPAP overnight, hopeful for pulmonary consult tomorrow. Plan: anticipate here another two more midnights. Home with spouse to [facility] when medically stable. No identified barriers to safe dc home with spouse at this time. CM team will continue to follow closely. TAYLOR Bosch
[2024-02-03 11:23] LABS: PCO2 ABG 56.4 mmHg (35-45); PO2 ABG 67 mmHg (80-100); pH ABG 7.39 (7.35-7.45)
[2024-02-03 11:24] LABS: Allen Test for ABG Passed? Yes, Passed; Blood Gas Collection Site Right Radial; Blood Gas Other Coll. Site N; Fractionated Inspired Oxygen 21; HCO3 ABG 34 mmol/L (23-27); Oxygen Saturation ABG 92 % (95-100); TCO2 ABG 36 mmol/L (23-27)
--- NOTE | 2024-02-03 18:23 | PC.NURSE ---
Day shift: Pt A&Ox4, repeat ABG done by RT. Pt off BiPAP, O2 95% on RA. VSS. Up to BR SBA. Up to chair for meals. Reports more comfort in chair than bed. Requested a sleep aid for HS, page sent out to Dr. Hurley. Care ongoing, call light within reach, will continue to monitor.
[2024-02-03] MEDS: SODIUM CHLORIDE 0.9% FLUSH 10 ML IV (21:10)
[2024-02-03] MEDS: diphenhydrAMINE 25 MG TABLET PO (21:10)
[2024-02-04] VITALS (28 sets, daily range): BP systolic 118–203; BP diastolic 65–91; PULSE 69–100; RESP 16–36; TEMP 36.4–37; O2SAT 89–96
[2024-02-04] MEDS: ALBUTEROL 2.5 MG/3 ML NEB (ADULT) INH ×3 (06:58→20:43)
--- NOTE | 2024-02-04 08:21 | PM.PN.1 ---
Subjective Subjective Date Patient Seen: 02/04/24 Time Patient Seen: 08:22 Interval history: Patient seen in follow up of hypercapnic acute on chronic respiratory failure. Feeling better. Pretty much back to his usual self. Patient has stated that he has not been sleeping basically for weeks now because he can not lay down flat because he gets so short of breath and does not feel like he can get other changes. Today feels back to his usual self. Usual shortness of breath Exam Vital Signs (past 8 hours): - 02/04/24 04:00 02/04/24 06:58 02/04/24 08:00 Temperature 97.5 F L 98.1 F Pulse Rate 90 85 84 Respiratory Rate 20 20 36 H Blood Pressure 162/89 H 138/70 Pulse Oximetry 94 93 92 Oxygen Delivery Method Nasal Cannula Oxygen Flow Rate 0 0.5 0 Fraction of Inspired Oxygen 21 SaO2/FiO2 Ratio 442 Oxygen Delivery Method Nasal Cannula Oxygen Flow Rate 0 Narrative Exam Narrative: Alert mildly fatigued male in no acute respiratory distress Lungs are clear heart is regular rate and rhythm Objective Labs 02/03/24 03:20 02/03/24 03:20 Labs: Laboratory Results - last 24 hr 02/03/24 02/03/24 08:40 11:10 Sample Site N ABG Sample Site Right radial Right radial ABG pH 7.66 H* 7.39 ABG pCO2 26.6 L 56.4 H ABG pO2 83 67 L ABG HCO3 30 H 34 H ABG Total CO2 31 H 36 H ABG O2 Saturation 98 92 L ABG Base Excess 10.0 H 9.0 H FiO2 21 21 PFSH Medical History Incomplete bladder emptying Urinary retention Bladder calculi History of nephrolithiasis BPH w urinary obs/LUTS H/O nephrolithotomy with removal of calculi Renal disease Heart attack Kidney stones Enlarged prostate Hypercholesteremia Surgical History History of coronary artery stent placement Family History Mother Cancer CAD in [place] artery Hypertension Social History marital status: number of children: 1 household members: spouse Smoking Status: Former smoker alcohol intake: current Type(s) of exercise: walking frequency: 1-2 times per week Assessment & Plan Assessment & Plan narrative: Acute on chronic hypercapnic respiratory failure. Seems to be doing better. Issue is how do we. Patient from becoming so short of breath at night and becoming hypercapnic. Patient has fallen off his couch now can not find a place to sleep. Need to have some plan. Patient has seen refrigerator car icer and we will call and see if they will see him here. Otherwise no definitive changes at this time. But if we do not have a plan he will return. Hopefully there will see him here. No other changes. History of urinary obstructions doing well. Cardiac. Stable without significant changes will follow Disposition. Patient will be followed and hopefully discharge soon. Quality VTE Deep Vein Thrombosis/Pulmonary Embolism Present on Admission: No
[2024-02-04] MEDS: ATORVASTATIN 20 MG TABLET PO (08:22)
[2024-02-04] MEDS: TAMSULOSIN 0.4 MG CAPSULE PO ×2 (08:22→20:49)
[2024-02-04] MEDS: SODIUM CHLORIDE 0.9% FLUSH 10 ML IV ×2 (08:26→20:47)
--- NOTE | 2024-02-04 11:17 | CM.DPNOTE ---
Addendum entered by TAYLOR Bosch 02/04/24 14:29: Per chart review and RN report, pt's troponin's increased. dc cancelled. Medical POC continues to unfold. Continues to anticipate no DCP/CM needs, CM team will continue to follow in case and needs arise. SL Original Note: DCP note CLIENT SERVICE ADMINISTRATOR reviewed EMR. Per RN, Jannette wanted to consult with dental laboratory supervisor prior to discharging pt today. No new CM needs identified. CLIENT SERVICE ADMINISTRATOR met with pt in room. Pt confirms lives with spouse on [address]. Deny any CM needs at this time. Report as soon as he knows he's discharging he will notify spouse to come pick him up. Plan: home with spouse, potentially today vs tomorrow, with spouse in POV. Deny CM needs at this time. TAYLOR Bosch
--- NOTE | 2024-02-04 13:29 | PM.DS.1 ---
History of Present Illness History of Present Illness Date Patient Seen: 02/04/24 Time Patient Seen: 13:29 Date of Onset of Symptoms: 02/01/24 Chief complaint: fall off couch hit head, no thinners Narrative: 78 yo male, patient of Dr. Torres, admitted via ED with hypercapnia. Presented with falls, likely due to LOC. H/O hypercapnia (pCO2 50+ prior), now 110+ with pH 7.17. Etiology of respiratory issues unclear, extrathoracic restriction per pulmonary medicine. Also maybe some degree of obstruction, albuterol and steroid inhalers seem to help subjectively, minimal on PFTs, however. No recent respiratory symptoms such as cough fever chills sore throat etcetera. No findings to suggest infectious etiology on ER evaluation. Clearly somnolent in ED, started on BiPAP and admitted. Patient also recently (January 08) discharged after urologic procedure (Aquablation for BPH/LUTS), possible contributing factor. Neg workup in ED for PE or other acute respiratory infection, etc Discharge Providers Provider Date of admission: 02/02/24 19:27 Discharge Date: 02/04/24 Primary care physician: Eduardo Torres MD Consults: 02/02/24 21:21 Consult to Tele-supervisor steno pool Routine Comment: Consulting Provider: Nadira Tele-intensivists Reason for consultation: Blending Supervisor services Discharge provider: Timoteo Bhatia MD Summary Hospital Course Discharge Diagnosis: Acute on chronic hypercapnic respiratory failure Insomnia Mild increase in troponin Recent Aquablation with BPH Hospital Course: Acute on chronic hypercapnic respiratory failure. Patient was admitted and placed on BiPAP. Completely cleared. Normal self by next morning patient had no other significant new changes or complaints. He was maintained on the 2nd night off of BiPAP doing well. Patient has had a long history of hypercapnia and unclear etiology. Attempted to contact pediatric physician assistant who patient was previously seen by was hoping he could maybe devops consultant here in the hospital. But unable to contact. Discussed with the patient. He feels comfortable he will do well at home. Concern is we do not know exactly what caused initial presentation. Patient was placed on steroids there was no evidence of infection all will be discontinued on way home. We will have him see Dr. Cancino within 48 hours and hopefully he can get him set up for an outpatient evaluation with pulmonology. He feels safe. Will call. Insomnia. Patient has not been able to sleep. A little reluctant to try much due to the fact that we do not want to recreate his hypercapnic state. We discussed this. Will try hydroxyzine at night he can read discuss with Dr. Florence after that. Patient understands will call if change. Mild increase in troponin. There was no evidence of EKG changes he had no symptoms and it was felt to be probably secondary to his pulmonary disease but will rechecked prior to discharge. BPH. Recent Aquablation. May have been part of his issue will follow. No treatment at this time as per urologist Exam Vital Signs (past 8 hours): - 02/04/24 06:58 02/04/24 08:00 02/04/24 09:00 Temperature 98.1 F Pulse Rate 85 84 Respiratory Rate 20 36 H Blood Pressure 138/70 Pulse Oximetry 93 92 Oxygen Delivery Method Nasal Cannula Room Air Oxygen Flow Rate 0.5 0 Fraction of Inspired Oxygen 02/04/24 12:00 02/04/24 12:23 Temperature 98.6 F Pulse Rate 78 86 Respiratory Rate 36 H 18 Blood Pressure 147/65 H Pulse Oximetry 96 94 Oxygen Delivery Method Room Air Oxygen Flow Rate 0 0 Fraction of Inspired Oxygen 21 Fraction of Inspired Oxygen 21 SaO2/FiO2 Ratio 447 Oxygen Delivery Method Room Air Oxygen Flow Rate 0 Narrative Exam Narrative: Alert elderly male interactive appropriate no acute distress Lungs are clear heart is regular rate and rhythm neurologic exam is nonfocal Objective Labs 02/03/24 03:20 02/03/24 03:20 [facility] Medical History Incomplete bladder emptying Urinary retention Bladder calculi History of nephrolithiasis BPH w urinary obs/LUTS H/O nephrolithotomy with removal of calculi Renal disease Heart attack Kidney stones Enlarged prostate Hypercholesteremia Surgical History History of coronary artery stent placement Family History Mother Cancer CAD in [place] artery Hypertension Social History marital status: number of children: 1 household members: spouse Smoking Status: Former smoker alcohol intake: current Type(s) of exercise: walking frequency: 1-2 times per week Discharge Assessment & Plan Assessment and Plan Assessment: Improve Plan of Treatment: Discharge home Discharge Plan Discharge Plan Patient Disposition: Home Discharge orders & Medications Prescriptions: New hydroxyzine HCl 25 mg tablet 25 mg PO BEDTIME Qty: 30 0RF Continued cholecalciferol (vitamin D3) [Vitamin D3] 50 mcg (2,000 unit) Capsule 50 mcg PO DAILY docusate sodium 100 mg capsule 100 mg PO BID PRN (Reason: Constipation) Patient Comments: Taking every other day tamsulosin 0.4 mg Capsule 0.4 mg PO DAILY Rx Instructions: discontinue 02/07 ketoconazole 2 % shampoo 1 applic topical DAILY albuterol sulfate 90 mcg/actuation HFA aerosol inhaler 2 puff inhalation Q4H PRN (Reason: Wheezing) rosuvastatin 10 mg tablet 10 mg PO DAILY fluticasone propion-salmeterol 250-50 mcg/dose blister with device 1 inh inhalation BID Qty: 60 3RF Patient Comments: Alternating every other day with Advair 115/21 mcg (DME) Aerochamber MV Spacer See Rx Instructions .Route Qty: 1 1RF Rx Instructions: As directed Follow up/Referrals: Eduardo Torres MD [Primary Care Provider] - 02/06/24 (Call for appointment) Discharge Health Status Multidrug resistant organism: No MDRO Diet/Activity/Treatments Diet: Diet as Tolerated Activity: As tolerated Visit Report/Discharge Packet Stand Alone Forms: Patient Portal/API, Stroke Signs & Symptoms Discharge Data Primary Care Provider: Eduardo Torres Quality VTE Deep Vein Thrombosis/Pulmonary Embolism Present on Admission: No
--- NOTE | 2024-02-04 13:43 | DIET.CONS ---
Dietary Consultation Note Admission Date: 02/02/2024 19:27 Assessment: 78 y M admitted with hypercapnia. Nutrition screened for low MNA. Met with pt at bedside. Reports normal appetite here and at home. Reports 30 lb weight loss over fall/winter 2022. Changed his diet to reduce consumption of red meat and improve his cholesterol levels. cooks meals. Diet recall: B-Vietnamese toast and hanson L-Deli sandwich and sides D-meat or legumes, carb, veg (i.e fish tacos) Nutrition focused physical exam results: -Mild to moderate loss temporalis muscle. No other significant findings. Areas assessed: temporalis, deltoid, pectoralis major, trapezius, interosseous muscles and triceps, buccal and orbital fat pads. Ht: 170.18 cm Wt: 71.1 kg BMI: 24.6 UBW: 79.379 kg 04/26/23 per chart (-10.5% loss in 9 months, non-significant; weight loss noted to happen over 6-7 months during Apr-Oct, weight has now been stable since Oct at 69-71 kg) Last BM: 02/02/24 (02/02/24 19:41) MNA: 8 French Score: 23 Diet: 02/03/24 Breakfast General (Regular) Diet Diet Modifications: Food Texture: Level 7 - Regular Liquid Consistency: Level 0 - Thin Nutrition Percent Meal Consumed 100% 02/04/24 08:20 Percent Meal Consumed 100% 02/03/24 18:00 Labs: RBC 5.09 X10^6/uL (4.5-5.9) 02/03/24 03:20 Hgb 14.5 g/dL (13.5-17.5) 02/03/24 03:20 Hct 45.3 % (41-53) 02/03/24 03:20 Creatinine 0.59 mg/dL (0.66-1.25) L 02/03/24 03:20 NT-Pro-B Natriuret Pep 304 pg/mL (<450) 02/02/24 16:40 Nutrition Diagnosis: - Interventions: 1. Discussed muscle mass maintenance and preventing/treating any future significant drops in weight EER: [id number] (25-27 kcals/kg per BMI) 70-75 g (1 g/kg per age) Monitoring/Evaluations: f/u prn Electronically Signed by: Bina Forte 02/04/24 13:43 Clinical Dietitian [address] [id number]
[2024-02-04 14:18] LABS: Troponin I 0.162 ng/mL (0.01-0.034)
--- NOTE | 2024-02-04 14:21 | DI.ECHO.S_ITS ---
[facility] : : [address] : : [facility] : : [place], : : [place] [address] : : Phone: [phone] Echocardiogram Report + + :Name: PHOENIX CHRISTIAN Study Date: 02/04/2024 Height: 67 in : :[facility] ReadingLocation: Weight: 156 lb : : Gender: Male BSA: 1.8 m2 : :: 1945 Age: 78 yrs BP: 153/71 mmHg: :Reason For Study: ELEVATED TROPONIN : :Ordering Physician: ELLEN, : :TREVER Performed By: Cirilo Arriaga : :Referring: TREVER HUGHES : + + Interpretation Summary The ejection fraction is estimated to be 55-60%. Diastolic parameters suggest probable normal left ventricular diastolic function and normal filling pressures. The right ventricular systolic function is normal. Both atria are normal in size. There is mild aortic regurgitation. Procedure: A two-dimensional transthoracic echocardiogram with color flow and Doppler was performed. The study quality was technically adequate. There is no prior echocardiogram noted for this patient. The patient was in sinus rhythm with heart rates between 75-85 bpm during the exam. Left Ventricle: The left ventricle is normal in size and wall thickness. The ejection fraction is estimated to be 55-60%. Regional wall motion abnormalities cannot be excluded due to limited visualization. Diastolic parameters suggest probable normal left ventricular diastolic function and normal filling pressures. Right Ventricle: The right ventricle is normal in size and function. The right ventricular systolic function is normal. Atria: Both atria are normal in size. Right atrial size is normal. The interatrial septum grossly appears intact with no obvious evidence for an atrial septal defect. Mitral Valve: The mitral valve is normal in structure and function. There is no mitral valve stenosis. There is trace mitral regurgitation. Aortic Valve: The aortic valve is not well visualized. There is no aortic valve stenosis. There is mild aortic regurgitation. Tricuspid Valve: The tricuspid valve is normal in structure and function. There is no tricuspid stenosis. No tricuspid regurgitation. Pulmonic Valve: The pulmonic valve is not well visualized. Great Vessels: The aortic root is normal size. The ascending aorta could not be visualized. The IVC is of normal diameter and collapses less than 50% with a sniff. This suggests a right atrial pressure of 8 mm Hg. Pericardium/ Pleura There is no pericardial effusion. There is no pleural effusion. MMode/2D Measurements & Calculations LVIDd: 4.0 cm LVOT diam: 1.9 cm LVIDs: 2.8 cm Ao root diam: 3.5 cm IVSd: 0.87 cm LVPWd: 1.1 cm LV islas. diameter/BSA (cm/m^2): 2.2 LV sys. diameter/BSA (cm/m^2): 1.5 FS: 29.4 % LA A2 area: 21.3 cm2 RA long axis: 4.9 cm LA A4 area: 15.5 cm2 RA area: 12.6 cm2 LA length (vol): 5.0 cm RA vol: 27.4 ml LA vol: 55.5 ml RA : 15.0 ml/m2 LA vol index: 30.5 ml/m2 RVD1 (basal): 2.9 cm IVC diam: 2.0 cm RVD2 (mid): 2.2 cm Doppler Measurements & Calculations Ao V2 max: 139.4 cm/sec LVOT Max Errol: 94.9 cm/sec Ao V2 mean: 84.0 cm/sec LV V1 max P.6 mmHg Ao V2 VTI: 25.9 cm LV V1 VTI: 18.5 cm Ao max P.8 mmHg Ao mean P.3 mmHg GRANT(I,D): 2.0 cm2 MV E max errol: 71.2 cm/sec GRANT(V,D): 1.9 cm2 MV A max errol: 83.7 cm/sec GRANT indexed to BSA (cm^2/m^2): 1.1 MV E/A: 0.85 sev ratio: 0.72 Med Peak E' Errol: 5.5 cm/sec E/E' med: 13.1 Lat Peak E' Errol: 12.9 cm/sec E/E' lat: 5.5 E/e' average: 9.3 MV dec time: 0.18 sec SV(LVOT): 51.6 ml Reading Physician:SARA
[2024-02-04] MEDS: methylPREDNISolone 125 MG/2 ML VIAL 60 MG IV ×2 (14:44→20:48)
--- NOTE | 2024-02-04 18:12 | PM.PN.1 ---
Subjective Subjective Date Patient Seen: 02/04/24 Time Patient Seen: 18:12 Interval history: Patient feeling about the same. No other changes. Exam Vital Signs (past 8 hours): - 02/04/24 12:00 02/04/24 12:23 02/04/24 16:00 Temperature 98.6 F 98.1 F Pulse Rate 78 86 84 Respiratory Rate 36 H 18 20 Blood Pressure 147/65 H 153/71 H Pulse Oximetry 96 94 95 Oxygen Delivery Method Room Air Oxygen Flow Rate 0 0 0 Fraction of Inspired Oxygen 21 Fraction of Inspired Oxygen 21 SaO2/FiO2 Ratio 447 Oxygen Delivery Method Room Air Oxygen Flow Rate 0 Narrative Exam Narrative: No change Objective Labs 02/03/24 03:20 02/03/24 03:20 Labs: Laboratory Results - last 24 hr 02/04/24 13:46 Troponin I 0.162 H* PFSH Medical History Incomplete bladder emptying Urinary retention Bladder calculi History of nephrolithiasis BPH w urinary obs/LUTS H/O nephrolithotomy with removal of calculi Renal disease Heart attack Kidney stones Enlarged prostate Hypercholesteremia Surgical History History of coronary artery stent placement Family History Mother Cancer CAD in [place] artery Hypertension Social History marital status: number of children: 1 household members: spouse Smoking Status: Former smoker alcohol intake: current Type(s) of exercise: walking frequency: 1-2 times per week Assessment & Plan Assessment & Plan narrative: Acute on chronic hypercapnic respiratory failure. Discussed with youth probation officer who wants a resting ABG feels like patient can probably be sent home although no definitive ways to stop it. Patient is really struggling at home to [place] but outpatient evaluation is certainly something we can consider. If we can get that in soon enough. No other changes Elevated troponin. EKG re-evaluated with no real change. Echo is normal. Will consider thallium treadmill tomorrow. This all maybe secondary to his respiratory failure and demand ischemia but at this point has a history of heart disease and I think it would be better if we evaluated this prior to discharge. We had a long discussion with him and his they understand. Quality VTE Deep Vein Thrombosis/Pulmonary Embolism Present on Admission: No
[2024-02-04] MEDS: hydrOXYzine HCL 25 MG TABLET PO (20:49)
[2024-02-05] VITALS (18 sets, daily range): BP systolic 136–183; BP diastolic 65–84; PULSE 74–99; RESP 16–21; TEMP 36.4–36.8; O2SAT 91–98
[2024-02-05] MEDS: methylPREDNISolone 125 MG/2 ML VIAL 60 MG IV ×3 (05:23→20:31)
[2024-02-05 05:38] LABS: Creatine Kinase 65 U/L (55-170)
[2024-02-05 05:50] LABS: Troponin I 0.105 ng/mL (0.01-0.034)
[2024-02-05] MEDS: ALBUTEROL 2.5 MG/3 ML NEB (ADULT) INH ×4 (07:15→19:46)
--- NOTE | 2024-02-05 08:22 | P.PN_ITS ---
Subjective Subjective Date Patient Seen: 02/05/24 Time Patient Seen: 08:22 Interval history: Seen in follow-up of elevated troponin and hypercapnic respiratory failure. Patient has slept better last night. Has had no chest pain or other changes. Exam Vital Signs (past 8 hours): - 02/05/24 04:33 02/05/24 05:00 02/05/24 07:00 Temperature 97.6 F Pulse Rate 74 Respiratory Rate Blood Pressure 149/73 H Pulse Oximetry 96 Oxygen Delivery Method Room Air Oxygen Flow Rate 0 02/05/24 07:19 02/05/24 07:27 Temperature Pulse Rate 96 H Respiratory Rate 18 Blood Pressure Pulse Oximetry 96 Oxygen Delivery Method Room Air Oxygen Flow Rate Fraction of Inspired Oxygen 21 SaO2/FiO2 Ratio 447 Oxygen Delivery Method Room Air Oxygen Flow Rate 0 Narrative Exam Narrative: Alert male no acute distress much less fatigued in appearance Lungs are clear heart is regular rate and rhythm Objective Labs 02/03/24 03:20 02/03/24 03:20 Labs: Laboratory Results - last 24 hr 02/04/24 02/05/24 13:46 04:15 Total Creatine Kinase 65 Troponin I 0.162 H* 0.105 H PFSH Medical History Incomplete bladder emptying Urinary retention Bladder calculi History of nephrolithiasis BPH w urinary obs/LUTS H/O nephrolithotomy with removal of calculi Renal disease Heart attack Kidney stones Enlarged prostate Hypercholesteremia Surgical History History of coronary artery stent placement Family History Mother Cancer CAD in [place] artery Hypertension Social History marital status: number of children: 1 household members: spouse Smoking Status: Former smoker alcohol intake: current Type(s) of exercise: walking frequency: 1-2 times per week Assessment & Plan Assessment & Plan narrative: Elevated troponin. EKG and echo were normal. Probably secondary to demand ischemia with his respiratory failure 2 nights ago. Otherwise seems to be stable but does have history of [place]. Will obtain treadmill prior to discharge. Follow from there. Acute on chronic hypercapnic respiratory failure. Doing well at this point. Will obtain ABG as requested by language interpreter hopefully they will follow through on their word and get him in quickly. Certainly worry about recurrent issues if we do not resolve but doing well today. Seems to be stable. Will continue to follow. Quality VTE Deep Vein Thrombosis/Pulmonary Embolism Present on Admission: No
[2024-02-05] MEDS: TAMSULOSIN 0.4 MG CAPSULE PO ×2 (08:32→20:31)
[2024-02-05] MEDS: ATORVASTATIN 20 MG TABLET PO (08:32)
[2024-02-05] MEDS: SODIUM CHLORIDE 0.9% FLUSH 10 ML IV ×2 (08:32→20:31)
[2024-02-05 09:12] LABS: pH ABG 7.35 (7.35-7.45)
[2024-02-05 09:13] LABS: PO2 ABG 63 mmHg (80-100)
[2024-02-05 09:14] LABS: Allen Test for ABG Passed? Yes, Passed; Blood Gas Collection Site Right Radial; Fractionated Inspired Oxygen 20; HCO3 ABG 40 mmol/L (23-27); Oxygen Saturation ABG 89 % (95-100); TCO2 ABG 42 mmol/L (23-27)
--- NOTE | 2024-02-05 11:45 | CM.DPNOTE ---
Addendum entered by TAYLOR Bosch 02/05/24 14:00: Per Dr. Bhatia PN, Worsening from previous ABG yesterday and significantly worse than a day after being on BiPAP. Patient clearly is starting to have symptoms again and it is my opinion without nightly treatment he will be back in the hospital... Will try to get BiPAP set up. Patient can not leave the hospital until that happens Plan: home with spouse pending BiPAP/resp DME with spouse in POV. SL Original Note: DCP Note NURSING ASSISTANTS TEACHER reviewed EMR. Pt discussed in multidisciplinary rounds. Per RN, unable to get stress test with treadmill for pt today, and Jannette would like to dc him early afternoon. RT working on getting him set up with triology unit, but could be an issue with [facility] authorizing it. No new CM needs identified at this time. Plan: home with spouse, potentially this afternoon vs tomorrow (Pending RT/DME/insurance auth), with spouse in POV. Deny CM needs at this time. CM team will continue to follow closely in case new DCP needs arise. TAYLOR Bosch
--- NOTE | 2024-02-05 13:16 | PM.PN.1 ---
Subjective Subjective Date Patient Seen: 02/05/24 Time Patient Seen: 13:17 Interval history: Patient seen in follow-up of several issues from this morning. Primarily his ABG chronic on acute hypercapnic respiratory failure. Overall feeling pretty well today. Starting to feel a little more sleepy with drowsiness similar to the day before he started coming to the hospital Exam Vital Signs (past 8 hours): - 02/05/24 07:00 02/05/24 07:17 02/05/24 07:19 Temperature Pulse Rate 98 H Respiratory Rate Blood Pressure Pulse Oximetry 91 Oxygen Delivery Method Room Air Room Air Oxygen Flow Rate Fraction of Inspired Oxygen 02/05/24 07:27 02/05/24 07:57 02/05/24 07:57 Temperature Pulse Rate 96 H 98 H Respiratory Rate 18 Blood Pressure 183/84 H Pulse Oximetry 96 94 Oxygen Delivery Method Oxygen Flow Rate Fraction of Inspired Oxygen 02/05/24 08:44 02/05/24 10:04 02/05/24 11:34 Temperature 97.8 F Pulse Rate 79 81 Respiratory Rate 16 Blood Pressure 183/84 H Pulse Oximetry 94 94 Oxygen Delivery Method Room Air Oxygen Flow Rate 0 Fraction of Inspired Oxygen 21 02/05/24 11:34 02/05/24 12:00 Temperature 98.0 F Pulse Rate Respiratory Rate 17 Blood Pressure 161/74 H Pulse Oximetry Oxygen Delivery Method Oxygen Flow Rate Fraction of Inspired Oxygen Fraction of Inspired Oxygen 21 SaO2/FiO2 Ratio 447 Oxygen Delivery Method Room Air Oxygen Flow Rate 0 Narrative Exam Narrative: Alert male in no acute distress Objective Labs 02/03/24 03:20 02/03/24 03:20 Labs: Laboratory Results - last 24 hr 02/04/24 02/05/24 02/05/24 13:46 04:15 09:03 ABG Sample Site Right radial ABG pH 7.35 ABG pCO2 73.0 H* ABG pO2 63 L ABG HCO3 40 H ABG Total CO2 42 H ABG O2 Saturation 89 L ABG Base Excess 40.2 H FiO2 20 Total Creatine Kinase 65 Troponin I 0.162 H* 0.105 H PFSH Medical History Incomplete bladder emptying Urinary retention Bladder calculi History of nephrolithiasis BPH w urinary obs/LUTS H/O nephrolithotomy with removal of calculi Renal disease Heart attack Kidney stones Enlarged prostate Hypercholesteremia Surgical History History of coronary artery stent placement Family History Mother Cancer CAD in [place] artery Hypertension Social History marital status: number of children: 1 household members: spouse Smoking Status: Former smoker alcohol intake: current Type(s) of exercise: walking frequency: 1-2 times per week Assessment & Plan Assessment & Plan narrative: Acute on chronic hypercapnic respiratory failure. Patient's ABG shows a CO2 of 70+. Worsening from previous ABG yesterday and significantly worse than a day after being on BiPAP. Patient clearly is starting to have symptoms again and it is my opinion without nightly treatment he will be back in the hospital. Clearly without support at night by BiPAP or some similar method to clear out his CO2 he will not be able to this is seen outpatient treatment. Patient understands. Discussed with respiratory therapy have when out of their way to work through options. Will try to get BiPAP set up. Patient can not leave the hospital until that happens. Patient otherwise understands questions answered goals discussed. Pulmonary consult requested outpatient evaluation. Elevated troponin. Coming down. Apparently Cardiology refused treadmill and we will have to do this as an outpatient. Patient is stable at this point. I still feel like this is secondary to demand ischemia secondary to his is pulmonary issue. Overall doing well. Echo looked good. Will continue to follow. Quality VTE Deep Vein Thrombosis/Pulmonary Embolism Present on Admission: No
--- NOTE | 2024-02-05 17:20 | RT ---
Addendum entered by Silvino Renner, RT 02/05/24 17:23: Pt previous ABG drawn on 02/02 at 11:10 2 hours post BiPAP on RA. Original Note: Pt ABG collected at 09:00 after Pt waking, approx. 46 hours post BiPAP.
[2024-02-06] VITALS (15 sets, daily range): BP systolic 134–148; BP diastolic 63–71; PULSE 61–101; RESP 18; TEMP 36.2–36.6; O2SAT 88–95
[2024-02-06] MEDS: methylPREDNISolone 125 MG/2 ML VIAL 60 MG IV ×2 (04:59→13:45)
--- NOTE | 2024-02-06 05:56 | RT ---
Placed pt on Bipap at 2300 on 02/05/24 with a setting of 12/6 RR 10 21% O2. At 0218 romario an ABG it was ph 7.35 PCO2 71 up the rate on the Bipap to 18 and got another gas at 0549 pH 7.42 PCO2 60.1. I took to Bipap off the pt at 0550 so pt could have a break. Pt is alert and shows no signs of distress.
--- NOTE | 2024-02-06 06:06 | PC.NURSE ---
Patient on BiPAP from 233
[2024-02-06 06:07] LABS: pH ABG 7.35 (7.35-7.45)
[2024-02-06 06:08] LABS: PO2 ABG 68 mmHg (80-100)
--- NOTE | 2024-02-06 06:08 | PC.NURSE ---
Patient on BiPAP from 2300H-0200, ABG was drawn by RT at 0218, BiPAP continued from [id number], another ABG drawn by RT at 0549, BiPAP off at 0600. Per patient he feel well rested after using BiPAP overnight.
[2024-02-06 06:09] LABS: Fractionated Inspired Oxygen 21; HCO3 ABG 40 mmol/L (23-27); Oxygen Saturation ABG 91 % (95-100); TCO2 ABG 42 mmol/L (23-27)
[2024-02-06 06:11] LABS: Blood Gas Collection Site Right Radial
[2024-02-06 06:19] LABS: Allen Test for ABG Passed? Yes, Passed; Blood Gas Collection Site Right Radial; Fractionated Inspired Oxygen 21; HCO3 ABG 40 mmol/L (23-27); Oxygen Saturation ABG 95 % (95-100); PCO2 ABG 60.1 mmHg (35-45); PO2 ABG 74 mmHg (80-100); TCO2 ABG 41 mmol/L (23-27); pH ABG 7.42 (7.35-7.45)
[2024-02-06] MEDS: ALBUTEROL 2.5 MG/3 ML NEB (ADULT) INH ×2 (07:23→14:08)
[2024-02-06] MEDS: TAMSULOSIN 0.4 MG CAPSULE PO (08:54)
[2024-02-06] MEDS: ATORVASTATIN 20 MG TABLET PO (08:54)
[2024-02-06] MEDS: SODIUM CHLORIDE 0.9% FLUSH 10 ML IV (08:55)
--- NOTE | 2024-02-06 14:56 | P.DS_ITS ---
History of Present Illness History of Present Illness Date Patient Seen: 02/06/24 Time Patient Seen: 10:20 Chief complaint: fall off couch hit head, no thinners Narrative: Pt doing much better this morning after spending the night on BiPAP. He is feeling fine on room air while awake and endorses good appetite. Planning to go home today with BiPAP delivered to use tonight. Stress test will f/up as outpt. Discharge Providers Provider Date of admission: 02/02/24 19:27 Discharge Date: 02/06/24 Primary care physician: Eduardo Torres MD Discharge provider: Edaurdo Torres MD Summary Hospital Course Discharge Diagnosis: #Acute on chronic hypercapnic respiratory failure #Elevated troponin Hospital Course: Admitted with severe hypercapnea from home after several days of feeling progressively more tired and sleepy. Improved with several days of biPAP we established this will be necessary on discharge so it was arranged to be delivered. He did have some elevated troponins which were thought by cardiology most suitable for outpatient follow up when he is not putting his CV system under crazy respiratory strain. Status at Discharge Cognitive/behavioral status at discharge: at baseline, oriented Functional status at discharge: independent ambulation Overall status at discharge: patient is back to baseline Exam Vital Signs (past 8 hours): - 02/06/24 07:00 02/06/24 07:00 02/06/24 07:24 Temperature Pulse Rate 79 Blood Pressure Pulse Oximetry 94 93 Oxygen Delivery Method Room Air BiPAP Room Air 02/06/24 07:35 02/06/24 07:37 02/06/24 07:37 Temperature 97.8 F Pulse Rate 86 Blood Pressure 137/71 Pulse Oximetry 93 Oxygen Delivery Method 02/06/24 11:02 02/06/24 11:03 02/06/24 11:03 Temperature Pulse Rate 101 H 101 H Blood Pressure 141/64 H Pulse Oximetry 95 94 Oxygen Delivery Method Fraction of Inspired Oxygen 21 SaO2/FiO2 Ratio 447 Oxygen Delivery Method Room Air Oxygen Flow Rate 1.5 Narrative Exam Narrative: cheerful alert sitting in chair Resp Other: speaking in complete sentences on room air, moving air well, grossly clear to auscultation bilaterally Cardio Other: regular rate S1/S2 GI Other: soft nontender nondistended Neuro Other: alert oriented conversant Extrem Other: moving all limbs, no pedal edema Objective Labs 02/03/24 03:20 02/03/24 03:20 Labs: Laboratory Results - last 24 hr 02/05/24 02/06/24 02/06/24 09:03 02:15 05:45 ABG Sample Site Right radial Right radial ABG pH 7.35 7.42 ABG pCO2 71.0 H* 60.1 H ABG pO2 68 L 74 L ABG HCO3 40 H 40 H ABG Total CO2 42 H 41 H ABG O2 Saturation 91 L 95 ABG Base Excess 14.0 H 14.0 H 15.0 H FiO2 21 21 PFSH Medical History Incomplete bladder emptying Urinary retention Bladder calculi History of nephrolithiasis BPH w urinary obs/LUTS H/O nephrolithotomy with removal of calculi Renal disease Heart attack Kidney stones Enlarged prostate Hypercholesteremia Surgical History History of coronary artery stent placement Family History Mother Cancer CAD in [place] artery Hypertension Social History marital status: number of children: 1 household members: spouse Smoking Status: Former smoker alcohol intake: current Type(s) of exercise: walking frequency: 1-2 times per week Discharge Assessment & Plan Assessment and Plan Assessment: #Acute on chronic hypercapnic respiratory failure Awful presentation in extremis which only improved with BiPAP support and declined again rapidly without it. He does ok during the day but it seems clear he requires nightly BiPAP treatment or he will bounce right back in the same shape. Appreciate heroic efforts of RT to arrange this safe discharge plan. Pulmonary consult requested outpatient evaluation. #Elevated troponin. I suspect also this may have been demand ischemia 2/2 heart strain from the hypercapnea - outpatient treadmill seems like a good f/up plan. Echo looked ok. dispo: home with nightly BiPAP PCP: Brian f/up with PCP, pulm, and stress test Plan of Treatment: Discharge home Discharge Plan Discharge Plan Patient Disposition: Home Discharge orders & Medications Prescriptions: New hydroxyzine HCl 25 mg tablet 25 mg PO BEDTIME Qty: 30 0RF Continued cholecalciferol (vitamin D3) [Vitamin D3] 50 mcg (2,000 unit) Capsule 50 mcg PO DAILY docusate sodium 100 mg capsule 100 mg PO BID PRN (Reason: Constipation) Patient Comments: Taking every other day tamsulosin 0.4 mg Capsule 0.4 mg PO DAILY Rx Instructions: discontinue 02/07 ketoconazole 2 % shampoo 1 applic topical DAILY albuterol sulfate 90 mcg/actuation HFA aerosol inhaler 2 puff inhalation Q4H PRN (Reason: Wheezing) rosuvastatin 10 mg tablet 10 mg PO DAILY fluticasone propion-salmeterol 250-50 mcg/dose blister with device 1 inh inhalation BID Qty: 60 3RF Patient Comments: Alternating every other day with Advair 115/21 mcg (DME) Aerochamber MV Spacer See Rx Instructions .Route Qty: 1 1RF Rx Instructions: As directed Follow up/Referrals: Eduardo Torres MD [Primary Care Provider] - 02/06/24 (Call for appointment) Discharge Health Status Multidrug resistant organism: No MDRO Diet/Activity/Treatments Diet: Diet as Tolerated Activity: As tolerated Visit Report/Discharge Packet Stand Alone Forms: Patient Portal/API, Stroke Signs & Symptoms Discharge Data Primary Care Provider: Eduardo Torres Quality VTE Deep Vein Thrombosis/Pulmonary Embolism Present on Admission: No
--- NOTE | 2024-02-06 15:21 | CM.DPNOTE ---
DC Note Auth for Bipap secured by RT; patient discharged by Dr Torres. Patient eager to discharge home. No needs from this CM team. Plan: Discharge home w/spouse via spouse to transport, home Bipap (at night), close outpatient follow up. MELISSA
== END 2024-02-06 15:15 | disposition home or self-care (01) | DRG 189 ==
LOC: ED 19:27 → AC 19:28 → ICU 20:37
PROVIDERS: Emergency Medicine; Family Medicine; Internal Medicine Critical Care Medicine; Admitting Provider Internal Medicine; Emergency Provider Emergency Medicine; PCP Family Medicine; Referring Provider Emergency Medicine; Visit Provider Family Medicine
DX: J96.22 Acute and chronic respiratory failure with hypercapnia (principal); G47.00 Insomnia, unspecified; R79.89 Other specified abnormal findings of blood chemistry; N40.0 Benign prostatic hyperplasia without lower urinary tract symptoms; E78.00 Pure hypercholesterolemia, unspecified; Z87.891 Personal history of nicotine dependence; Z98.890 Other specified postprocedural states
CPT/HCPCS: 36415; 36600; 70450; 71045; 71275; 72125; 80048; 80053; 81001; 82550; 82805; 83690; 83735; 83880; 84145; 84484; 85025; 85379; 85610; 85730; 87086; 87797; 93005; 93010; 93306; 94640; 94660; 94762; 99223; 99233; 99285; 99291; A9270; J1650; J2919; J7613; Q9967

== ENCOUNTER → 2024-02-21 12:29 | Outpatient (CLI) | payer OTHER, SELFPAY ==
[2024-02-02 19:41] VITALS: BMI 23.5
[2024-02-03 06:18] VITALS: PULSE 79; RESP 28; O2SAT 96
[2024-02-21 13:24] LABS: HCO3 ABG 39 mmol/L (23-27); PO2 ABG 69 mmHg (80-100); pH ABG 7.36 (7.35-7.45)
[2024-02-21 13:25] LABS: Fractionated Inspired Oxygen 21; Oxygen Saturation ABG 92 % (95-100); TCO2 ABG 41 mmol/L (23-27)
[2024-02-21 13:26] LABS: Allen Test for ABG Passed? Yes, Passed
[2024-02-21 13:27] LABS: PCO2 ABG 68.8 mmHg (35-45)
[2024-02-21 13:28] LABS: Blood Gas Collection Site Left Radial
== END ==
PROVIDERS: PCP Family Medicine; Referring Provider Internal Medicine Critical Care Medicine; Visit Provider Internal Medicine Critical Care Medicine
DX: J96.20 Acute and chronic respiratory failure, unspecified whether with hypoxia or hypercapnia (principal)
CPT/HCPCS: 36600; 82805

== ENCOUNTER → 2024-03-04 11:33 | Outpatient (CLI) | payer OTHER, SELFPAY ==
[2024-02-02 19:41] VITALS: BMI 23.5
[2024-02-03 06:18] VITALS: PULSE 79; RESP 28; O2SAT 96
== END ==
PROVIDERS: PCP Family Medicine; Visit Provider Specialist
DX: R82.90 Unspecified abnormal findings in urine (principal)
CPT/HCPCS: 87086

== ENCOUNTER → 2024-03-04 15:24 | Outpatient (CLI) | payer OTHER, SELFPAY ==
[2024-02-02 19:41] VITALS: BMI 23.5
[2024-02-03 06:18] VITALS: PULSE 79; RESP 28; O2SAT 96
[2024-03-04 17:55] LABS: BUN Creatinine Ratio 31.6 (6-22); Blood Urea Nitrogen 24 mg/dL (9-20); Calcium 8.7 mg/dL (8.4-10.2); Chloride 100 mmol/L (98-107); Creatine Kinase 55 U/L (55-170); Estimated Glomerular Filt Rate > 60 mL/min (>60); Glucose 66 mg/dL (80-110); HEMOLYSIS < 15 (0-50); Lactate Dehydrogenase 154 U/L (120-246); Potassium 4.2 mmol/L (3.4-5.1); Sodium 143 mmol/L (137-145)
[2024-03-04 18:03] LABS: Carbon Dioxide 39 mmol/L (22-32)
[2024-03-04 18:25] LABS: TSH w/ Reflex to FT4 2.11 uIU/mL (0.47-4.68)
[2024-03-09 16:07] LABS: ANA Screen, IFA Negative (.)
== END ==
PROVIDERS: PCP Family Medicine; Referring Provider Internal Medicine Critical Care Medicine; Visit Provider Internal Medicine Critical Care Medicine
DX: R25.1 Tremor, unspecified (principal); J96.20 Acute and chronic respiratory failure, unspecified whether with hypoxia or hypercapnia; R82.90 Unspecified abnormal findings in urine
CPT/HCPCS: 36415; 80048; 82550; 83516; 83519; 83615; 84443; 86038; 86235; 87086

== ENCOUNTER 2024-03-13 13:31 | Inpatient (IN) | payer OTHER, SELFPAY ==
[2024-02-02 19:41] VITALS: BMI 23.5
[2024-02-03 06:18] VITALS: PULSE 79; RESP 28; O2SAT 96
[2024-03-13] VITALS (63 sets, daily range): BP systolic 102–196; BP diastolic 56–88; PULSE 82–101; RESP 3–45; TEMP 25–37.6; O2SAT 77–100; BMI 24.5
--- NOTE | 2024-03-13 13:51 | DI.RAD.S_ITS ---
PROCEDURE: XR CHEST 1V INDICATIONS: SOB, weakness TECHNIQUE: One view of the chest was acquired. COMPARISON: [facility], CR, XR CHEST 1V, 02/02/2024, 15:15. FINDINGS: Surgical changes and devices: None. Lungs and pleura: There is mild, diffuse interstitial prominence and low lung volumes. No focal airspace opacities. No pleural effusion or pneumothorax. Mediastinum: Mediastinal contours appear normal. Heart size is normal. Bones and chest wall: No suspicious bony lesions. Overlying soft tissues appear unremarkable. IMPRESSION: Interstitial prominence suggesting fluid overload. Dictated by: Sharda Aquino M.D. on 03/13/2024 at 15:15 Approved by: Sharda Aquino M.D. on 03/13/2024 at 15:15
--- NOTE | 2024-03-13 13:51 | EKG_ITS ---
[address] [address] Test Date: 2024-03-13 Pat Name: Joe Boggs Department: Room: Gender: Male Unscrambler: NANI : 1945 Requested By: Order Number: [id number] Reading MD: Luis Wadsworth Measurements Intervals [place] Rate: 90 P: 66 [place]: 200 QRS: 89 QRSD: 130 T: 8 QT: 390 QTc: 477 Interpretive Statements Normal sinus rhythm Right bundle branch block Cannot rule out Inferior infarct , age undetermined Electronically Signed On 03-14-2024 16:17:40 PDT by Luis Wadsworth
--- NOTE | 2024-03-13 14:05 | ED.SOB ---
HPI - SOB/Dyspnea General Chief Complaint: Shortness of Breath/Dyspnea Stated Complaint: GLF no thinners Time Seen by Provider: 03/13/24 13:48 Mode of arrival: Wheelchair History of Present Illness HPI Narrative: Patient 78-year-old male former smoker history of coronary artery disease with PCI, restrictive lung disease chronic hypercapnic respiratory failure, asthma urinary retention hyperlipidemia presenting today with multiple syncopal episodes. This is happened to him before. He previously had UTI. reports that he now is short of breath just while brushing teeth. She is noticed some increased lower extremity edema and is leg over the last few days. No fever or chills. reports that they went and saw a degreaser he apparently is having some neck issues an MRI of the cervical spine is ordered however he can not lay flat he has to have 1 sitting up the only want to do that is in [place]. Meanwhile he is become more weak falling more. No significant injuries. He is hypoxic. He has not tachypneic able to speak. And follow commands. Related Data Home Medications Medication Instructions Recorded Confirmed cholecalciferol (vitamin D3) 50 50 mcg PO DAILY 11/27/22 03/13/24 mcg (2,000 unit) capsule (Vitamin D3) albuterol sulfate 90 mcg/actuation 2 puff inhalation Q4H PRN Wheezing 01/08/24 03/13/24 aerosol inhaler ketoconazole 2 % shampoo 1 applic topical DAILY 01/08/24 03/13/24 rosuvastatin 10 mg tablet 10 mg PO DAILY 01/08/24 03/13/24 docusate sodium 100 mg capsule 100 mg PO BID PRN Constipation 02/02/24 03/13/24 acetaminophen 500 mg tablet 500 mg PO Q6H PRN Pain (Scale 03/04/24 03/13/24 (Tylenol Extra Strength) Score 1-3) calcium carb 333 mg-vit D3 133 1 tab PO DAILY 03/04/24 03/13/24 unit-mag ox 133 mg-zinc oxide 5 mg tab (Hany Mag Zinc Plus D3) flaxseed oil 1,000 mg capsule 1,000 mg PO DAILY 03/04/24 03/13/24 mecobalamin (vitamin B12) 5,000 5,000 mcg PO DAILY 03/04/24 03/13/24 mcg disintegrating tablet vitamin K2 45 mcg capsule 45 mcg PO DAILY 03/04/24 03/13/24 Previous Rx's Medication Instructions Recorded fluticasone 250 mcg-salmeterol 50 1 inh inhalation BID #60 ea 08/14/23 mcg/dose blistr powdr for inhalation inhalational spacing device #1 ea 11/14/23 (Aerochamber MV spacer) Disable Parking Permit #1 ea 03/12/24 Allergies Allergy/AdvReac Type Severity Reaction Status Date / Time No Known Drug Allergies Allergy Verified 03/04/24 13:55 Patient History Medical History (Updated 03/13/24 @ 16:56 by Carina Lazaro DO) Postop check Urinary retention Bladder calculi History of nephrolithiasis H/O nephrolithotomy with removal of calculi Renal disease Heart attack Kidney stones Enlarged prostate Hypercholesteremia Surgical History History of coronary artery stent placement Family History Mother Cancer CAD in [place] artery Hypertension Social History marital status: number of children: 1 household members: spouse Smoking Status: Former smoker alcohol intake: current Type(s) of exercise: walking frequency: 1-2 times per week Smoking Status: Former smoker alcohol intake frequency: holidays/special occasions only Substance Use Type: does not use Exam Initial Vital Signs Initial Vital Signs: Vital Signs Temperature 98.1 F 03/13/24 13:44 Pulse Rate 95 H 03/13/24 13:44 Respiratory Rate 28 H 03/13/24 13:44 Blood Pressure 152/68 H 03/13/24 13:44 Pulse Oximetry 77 L 03/13/24 13:44 Oxygen Delivery Method Room Air 03/13/24 13:44 GENERAL: [Well-appearing, well-nourished] and in [no acute] distress. HEENT: Head atraumatic,EOMI, pupils reactive, face symmetric, [moist] mucous membranes [EARS:] [Tympanic membranes visualized, no erythema or bulging, no hemotympanum] [PHARYNX:] [No erythema, no tonsillar exudate, no cervical lymphadenopathy] CARDIOVASCULAR: Regular rate and rhythm without murmurs, rubs or gallops. RESPIRATORY: Breath sounds equal bilaterally, no wheezes rales or rhonchi. ABDOMEN: Soft, nontender. Normoactive bowel sounds all 4 quadrants. No guarding or rebound. EXTREMITIES: Normal range of motion, no clubbing or edema. Neurovascularly intact NEUROLOGICAL: Alert and oriented x4.Normal gait and speech. SKIN: Warm, dry, no laceration, no petechiae, no rashes or lesions. Course Orders Ordered: ED Orders 03/13/24 13:51 Chest [XR chest 1V] Stat EKG-12 Lead Stat 03/13/24 13:53 Complete Blood Count AUTO DIFF Stat Comprehensive Metabolic Panel Stat Lactate (Lactic Acid) Stat Magnesium Stat NT-proBNP (BNP-Adult 18+) Stat Prothrombin Time INR Stat Troponin & CK Cardiac Panel Stat 03/13/24 13:56 Arterial Blood Gas Stat 03/13/24 14:11 Respiratory Panel (Film Array) Stat 03/13/24 14:24 Blood Culture Stat 03/13/24 15:36 ABG [Arterial Blood Gas] Stat 03/13/24 15:53 UA Complete [Urinalysis and Microscopic] Stat Urine Culture Stat 03/13/24 16:42 EKG-12 Lead Stat 03/13/24 16:45 Troponin I Stat 03/13/24 17:01 BiPAP Ventilatory Support RT PROTOCOL Acetaminophen (Acetaminophen 325 Mg Tablet) 650 mg PO Q6H PRN PRN Reason: Fever/Mild Pain (1-3) Hydrocodone Bitart/Acetaminophen (Hydrocodone/Acet 5/325 Tablet) 1 tab PO Q4H PRN PRN Reason: Pain, Moderate (4-6) Enoxaparin Sodium (Enoxaparin 40 Mg/0.4 Ml Syringe) 40 mg SUBCUT DAILY CARLOS Naloxone HCl (Naloxone 0.4 Mg/Ml Vial) 0.2 mg IV Q2MIN PRN PRN Reason: Opiate Reversal Discontinued Medications Furosemide (Furosemide 40 Mg/4 Ml Vial) 40 mg IV NOW ONE Stop: 03/13/24 15:38 Last Admin: 03/13/24 16:22 Dose: 40 mg Documented By: JAMILAH Sodium Chloride (Normal Saline 0.9%) 500 mls @ 1,000 mls/hr IV BOLUS ONE Stop: 03/13/24 14:17 Last Infusion: 03/13/24 15:08 Dose: Infused Documented By: Admin: 06/20/24 14:28 Dose: 1,000 mls/hr Documented By: JAMILAH Lidocaine HCl (Lidocaine 2% (Glydo) 6 Ml Gel) 6 ml TOP NOW ONE Stop: 03/13/24 15:25 Last Admin: 03/13/24 15:45 Dose: 6 ml Documented By: JAMILAH Vital Signs Vital signs: Vital Signs - 8 hr 03/13/24 13:44 03/13/24 13:48 03/13/24 13:48 Temperature 98.1 F Pulse Rate 95 H 100 H Respiratory Rate 28 H Blood Pressure 152/68 H 140/71 Pulse Oximetry 77 L 77 L Oxygen Delivery Method Room Air Room Air Oxygen Flow Rate Fraction of Inspired Oxygen 03/13/24 13:50 03/13/24 13:55 03/13/24 14:00 Temperature Pulse Rate 97 H 101 H Respiratory Rate 36 H Blood Pressure 150/81 H Pulse Oximetry 78 L 82 L Oxygen Delivery Method Nasal Cannula Oxygen Flow Rate 2 Fraction of Inspired Oxygen 03/13/24 14:00 03/13/24 14:05 03/13/24 14:10 Temperature Pulse Rate 98 H 92 H 93 H Respiratory Rate 45 H 44 H 31 H Blood Pressure Pulse Oximetry 85 L 90 L 86 L Oxygen Delivery Method Nasal Cannula Nasal Cannula Nasal Cannula Oxygen Flow Rate 2 2 2 Fraction of Inspired Oxygen 03/13/24 14:15 03/13/24 14:20 03/13/24 14:25 Temperature Pulse Rate 93 H 98 H 97 H Respiratory Rate 20 19 23 Blood Pressure Pulse Oximetry 96 98 92 Oxygen Delivery Method BiPAP BiPAP Oxygen Flow Rate Fraction of Inspired Oxygen 03/13/24 14:30 03/13/24 14:34 03/13/24 14:34 Temperature Pulse Rate 93 H 91 H Respiratory Rate 25 H 18 Blood Pressure 110/67 Pulse Oximetry 95 Oxygen Delivery Method BiPAP Oxygen Flow Rate Fraction of Inspired Oxygen 03/13/24 14:35 03/13/24 14:40 03/13/24 14:41 Temperature Pulse Rate 91 H 87 Respiratory Rate 28 H 19 Blood Pressure 150/81 H Pulse Oximetry Oxygen Delivery Method Oxygen Flow Rate Fraction of Inspired Oxygen 30 03/13/24 14:45 03/13/24 14:50 03/13/24 14:55 Temperature Pulse Rate 85 85 86 Respiratory Rate 23 23 25 H Blood Pressure Pulse Oximetry 99 Oxygen Delivery Method BiPAP Oxygen Flow Rate Fraction of Inspired Oxygen 03/13/24 14:59 03/13/24 14:59 03/13/24 15:00 Temperature Pulse Rate 87 Respiratory Rate 33 H Blood Pressure 105/67 102/68 Pulse Oximetry 95 Oxygen Delivery Method BiPAP Oxygen Flow Rate Fraction of Inspired Oxygen 03/13/24 15:00 03/13/24 15:05 03/13/24 15:07 Temperature Pulse Rate 82 85 Respiratory Rate 27 H 24 Blood Pressure 104/67 Pulse Oximetry 97 Oxygen Delivery Method BiPAP Oxygen Flow Rate Fraction of Inspired Oxygen 03/13/24 15:07 03/13/24 15:08 03/13/24 15:10 Temperature Pulse Rate 84 84 Respiratory Rate 23 19 Blood Pressure Pulse Oximetry 98 99 100 Oxygen Delivery Method BiPAP BiPAP Oxygen Flow Rate Fraction of Inspired Oxygen 03/13/24 15:15 03/13/24 15:15 03/13/24 15:20 Temperature Pulse Rate 84 85 Respiratory Rate 23 19 Blood Pressure 111/70 Pulse Oximetry 99 100 Oxygen Delivery Method BiPAP Oxygen Flow Rate Fraction of Inspired Oxygen 03/13/24 15:25 03/13/24 15:30 03/13/24 15:30 Temperature Pulse Rate 85 85 Respiratory Rate 25 H 23 Blood Pressure 114/70 Pulse Oximetry 98 99 Oxygen Delivery Method Oxygen Flow Rate Fraction of Inspired Oxygen 03/13/24 15:35 03/13/24 15:40 03/13/24 15:45 Temperature Pulse Rate 83 85 85 Respiratory Rate 19 20 19 Blood Pressure Pulse Oximetry 99 100 99 Oxygen Delivery Method BiPAP Oxygen Flow Rate Fraction of Inspired Oxygen 03/13/24 15:45 03/13/24 15:50 03/13/24 15:55 Temperature Pulse Rate 86 85 Respiratory Rate 18 19 Blood Pressure 115/70 Pulse Oximetry 99 99 Oxygen Delivery Method BiPAP Oxygen Flow Rate Fraction of Inspired Oxygen 03/13/24 16:00 03/13/24 16:00 03/13/24 16:05 Temperature Pulse Rate 85 86 Respiratory Rate 20 19 Blood Pressure 116/68 Pulse Oximetry 100 Oxygen Delivery Method Oxygen Flow Rate Fraction of Inspired Oxygen 03/13/24 16:10 03/13/24 16:15 03/13/24 16:15 Temperature 98.8 F 99.0 F Pulse Rate 85 87 Respiratory Rate 18 18 Blood Pressure 115/67 Pulse Oximetry 99 100 Oxygen Delivery Method BiPAP Oxygen Flow Rate Fraction of Inspired Oxygen 03/13/24 16:20 03/13/24 16:25 03/13/24 16:30 Temperature 99.1 F 99.1 F 99.3 F Pulse Rate 87 90 90 Respiratory Rate 21 22 19 Blood Pressure Pulse Oximetry 99 99 99 Oxygen Delivery Method BiPAP Oxygen Flow Rate Fraction of Inspired Oxygen 03/13/24 16:30 03/13/24 16:35 03/13/24 16:40 Temperature 99.5 F 99.5 F Pulse Rate 92 H 90 Respiratory Rate 24 24 Blood Pressure 105/61 Pulse Oximetry 99 98 Oxygen Delivery Method Oxygen Flow Rate Fraction of Inspired Oxygen 03/13/24 16:45 03/13/24 16:45 03/13/24 16:50 Temperature 99.7 F H 99.7 F H Pulse Rate 87 93 H Respiratory Rate 20 22 Blood Pressure 118/74 Pulse Oximetry 98 98 Oxygen Delivery Method BiPAP Oxygen Flow Rate Fraction of Inspired Oxygen 03/13/24 16:55 03/13/24 17:00 03/13/24 17:00 Temperature 99.7 F H 99.7 F H Pulse Rate 94 H 91 H Respiratory Rate 23 25 H Blood Pressure 176/81 H Pulse Oximetry 98 96 Oxygen Delivery Method BiPAP Oxygen Flow Rate Fraction of Inspired Oxygen MDM - SOB/Dyspnea Lab Data 03/13/24 13:53 03/13/24 13:53 Labs: Lab Results 03/13/24 03/13/24 03/13/24 Range/Units 13:53 13:56 14:11 WBC 9.6 (4.5-11.0) X10^3/uL RBC 5.52 (4.5-5.9) X10^6/uL Hgb 15.9 (13.5-17.5) g/dL Hct 49.8 (41-53) % MCV 90.2 (80-100) fL MCH 28.9 (26-34) PG MCHC 32.0 (30-36) % RDW 15.1 H (11.6-14.8) % Plt Count 179 (150-400) X10^3/uL Neut % (Auto) 80.5 H (50-75) % Lymph % (Auto) 8.2 L (25-40) % [place] % (Auto) 10.8 (3-14) % Eos % (Auto) 0.2 L (2-4) % Baso % (Auto) 0.3 (0-2) % Neut # (Auto) 7700 H (6986-0270) /uL Lymph # (Auto) 800 L (6956-0745) /uL [place] # (Auto) 1000 H (0-900) /uL Eos # (Auto) 0 (0-450) /uL Baso # (Auto) 0 (0-100) /uL PT 12.4 (9.4-12.5) SECONDS INR 1.1 (0.9-1.3) ABG Sample Site Left radial ABG pH 7.29 L* (7.35-7.45) ABG pCO2 88.9 H* (35-45) mmHg ABG pO2 39 L* (80-100) mmHg ABG HCO3 43 H (23-27) mmol/L ABG Total CO2 45 H (23-27) mmol/L ABG O2 Saturation 63 L* (95-100) % ABG Base Excess 11.2 H (-2-3) mmol/L Respiration Rate O2 Delivery Device Ra Mode of Support FiO2 21 Pressure Support PEEP or CPAP Sodium 142 (137-145) mmol/L Potassium 4.5 (3.4-5.1) mmol/L Chloride 98 (98-107) mmol/L Carbon Dioxide 39 H (22-32) mmol/L BUN 27 H (9-20) mg/dL Creatinine 0.62 L (0.66-1.25) mg/dL Estimated GFR > 60 (>60) mL/min BUN/Creatinine Ratio 43.5 H (6-22) Glucose 139 H (80-110) mg/dL Lactate 0.9 (0.7-2.1) mmol/L Calcium 8.5 (8.4-10.2) mg/dL Magnesium 2.4 H (1.6-2.3) mg/dL Total Bilirubin 0.5 (0.2-1.3) mg/dL AST 30 (17-59) IU/L ALT 28 (<50) IU/L Alkaline Phosphatase 77 (38-126) U/L Total Creatine Kinase 71 (55-170) U/L Troponin I 0.024 (0.01-0.034) ng/mL NT-Pro-B Natriuret Pep 430 (<450) pg/mL Total Protein 7.0 (6.3-8.2) g/dL Albumin 4.0 (3.5-5.0) g/dL Globulin 3.0 (1.7-4.1) g/dL Albumin/Globulin Ratio 1.3 (1.0-2.8) Urine Color Urine Appearance Urine pH (4.5-8.0) Ur Specific [place] (1.000-1.035) Urine Protein (Negative) Urine Glucose (UA) (Negative) g/dL Urine Ketones (NEGATIVE) Urine Occult Blood (Negative) Urine Nitrate (Negative) Urine Bilirubin (NEGATIVE) Urine Urobilinogen (0.2) E.U./dL Ur Leukocyte Esterase (NEGATIVE) Urine RBC (0-5/HPF) Urine WBC (0-5/HPF) Ur Squamous Epith Cells (0-5/HPF) Urine Bacteria (None) Ur Culture Indicated? Vol Urine Centrifuged Chlamy pneumoniae PCR Not detected (Not Detect) Adenovirus (PCR) Not detected (Not Detect) B.parapertussis DNA PCR Not detected (Not Detecte) Coronavirus OC43 (PCR) Not detected (Not Detect) Coronavirus HKU1 (PCR) Not detected (Not Detect) Coronavirus 229E (PCR) Not detected (Not Detect) SARS-CoV-2 (PCR) Not detected (Not Detecte) Coronavirus NL63 (PCR) Not detected (Not Detect) Human Metapneumovir PCR Not detected (Not Detect) Influenza Type A (PCR) Not detected (Not Detect) Influenza Type B (PCR) Not detected (Not Detect) M. pneumoniae (PCR) Not detected (Not Detect) Parainfluenza 1 (PCR) Not detected (Not Detect) Parainfluenza 2 (PCR) Not detected (Not Detect) Parainfluenza 3 (PCR) Not detected (Not Detect) Parainfluenza 4 (PCR) Not detected (Not Detect) RSV (PCR) Not detected (Not Detect) Entero/Rhino (PCR) Not detected (Not Detect) 03/13/24 03/13/24 03/13/24 Range/Units 15:36 15:53 16:45 WBC (4.5-11.0) X10^3/uL RBC (4.5-5.9) X10^6/uL Hgb (13.5-17.5) g/dL Hct (41-53) % MCV (80-100) fL MCH (26-34) PG MCHC (30-36) % RDW (11.6-14.8) % Plt Count (150-400) X10^3/uL Neut % (Auto) (50-75) % Lymph % (Auto) (25-40) % [place] % (Auto) (3-14) % Eos % (Auto) (2-4) % Baso % (Auto) (0-2) % Neut # (Auto) (3553-7313) /uL Lymph # (Auto) (8329-4690) /uL [place] # (Auto) (0-900) /uL Eos # (Auto) (0-450) /uL Baso # (Auto) (0-100) /uL PT (9.4-12.5) SECONDS INR (0.9-1.3) ABG Sample Site Right radial ABG pH 7.47 H (7.35-7.45) ABG pCO2 49.7 H (35-45) mmHg ABG pO2 132 H (80-100) mmHg ABG HCO3 36 H (23-27) mmol/L ABG Total CO2 37 H (23-27) mmol/L ABG O2 Saturation 99 (95-100) % ABG Base Excess 10.5 H (-2-3) mmol/L Respiration Rate 18 O2 Delivery Device Bipap Mode of Support Bi-level ventilation FiO2 30 Pressure Support 18 PEEP or CPAP 6 Sodium (137-145) mmol/L Potassium (3.4-5.1) mmol/L Chloride (98-107) mmol/L Carbon Dioxide (22-32) mmol/L BUN (9-20) mg/dL Creatinine (0.66-1.25) mg/dL Estimated GFR (>60) mL/min BUN/Creatinine Ratio (6-22) Glucose (80-110) mg/dL Lactate (0.7-2.1) mmol/L Calcium (8.4-10.2) mg/dL Magnesium (1.6-2.3) mg/dL Total Bilirubin (0.2-1.3) mg/dL AST (17-59) IU/L ALT (<50) IU/L Alkaline Phosphatase (38-126) U/L Total Creatine Kinase (55-170) U/L Troponin I 0.044 H (0.01-0.034) ng/mL NT-Pro-B Natriuret Pep (<450) pg/mL Total Protein (6.3-8.2) g/dL Albumin (3.5-5.0) g/dL Globulin (1.7-4.1) g/dL Albumin/Globulin Ratio (1.0-2.8) Urine Color Yellow Urine Appearance Clear Urine pH 7.0 (4.5-8.0) Ur Specific [place] 1.020 (1.000-1.035) Urine Protein 2+ H (Negative) Urine Glucose (UA) Negative (Negative) g/dL Urine Ketones Negative (NEGATIVE) Urine Occult Blood Trace-intact (Negative) Urine Nitrate Negative (Negative) Urine Bilirubin Negative (NEGATIVE) Urine Urobilinogen 1.0 (0.2) E.U./dL Ur Leukocyte Esterase Trace H (NEGATIVE) Urine RBC 1-5/hpf D (0-5/HPF) Urine WBC 5-10/hpf H (0-5/HPF) Ur Squamous Epith Cells 0-1 /hpf (0-5/HPF) Urine Bacteria Few (2-10) H (None) Ur Culture Indicated? Specimen cultured Vol Urine Centrifuged 10ml (spun) Chlamy pneumoniae PCR (Not Detect) Adenovirus (PCR) (Not Detect) B.parapertussis DNA PCR (Not Detecte) Coronavirus OC43 (PCR) (Not Detect) Coronavirus HKU1 (PCR) (Not Detect) Coronavirus 229E (PCR) (Not Detect) SARS-CoV-2 (PCR) (Not Detecte) Coronavirus NL63 (PCR) (Not Detect) Human Metapneumovir PCR (Not Detect) Influenza Type A (PCR) (Not Detect) Influenza Type B (PCR) (Not Detect) M. pneumoniae (PCR) (Not Detect) Parainfluenza 1 (PCR) (Not Detect) Parainfluenza 2 (PCR) (Not Detect) Parainfluenza 3 (PCR) (Not Detect) Parainfluenza 4 (PCR) (Not Detect) RSV (PCR) (Not Detect) Entero/Rhino (PCR) (Not Detect) Imaging Data Chest x-ray: Radiologist's Impression: PROCEDURE: XR CHEST 1V INDICATIONS: SOB, weakness TECHNIQUE: One view of the chest was acquired. COMPARISON: [facility], CR, XR CHEST 1V, 02/02/2024, 15:15. FINDINGS: Surgical changes and devices: None. Lungs and pleura: There is mild, diffuse interstitial prominence and low lung volumes. No focal airspace opacities. No pleural effusion or pneumothorax. Mediastinum: Mediastinal contours appear normal. Heart size is normal. Bones and chest wall: No suspicious bony lesions. Overlying soft tissues appear unremarkable. IMPRESSION: Interstitial prominence suggesting fluid overload. Dictated by: Sharda Aquino M.D. on 03/13/2024 at 15:15 ECG Data Attestation: I personally reviewed and interpreted this ECG as follows: Prior ECG tracings: available for review Interpretation: Normal sinus rhythm rate 90 RI interval 200 QRS 130 QTC 477 right bundle-branch block noted similar to previous EKGs no ischemic changes MDM Narrative Medical decision making narrative: Patient 78-year-old male history of restrictive lung disease presenting today with weakness and falls. He is presented like this many times previously. He is found to be hypercapnic and hypoxic. He surprisingly does not appear in significant respiratory distress despite hypoxemia with room air of 77%. He is very sleepy but arousable. He is found to be hypercapnic with a CO2 of 88. Immediately placed on BiPAP, he is supposed to be on BiPAP during the day or if he feels weak. Blood work has been reviewed: No leukocytosis or anemia, carbon dioxide chronically elevated at 39 similar to previous creatinine 0.6 glucose 139, troponin 1st 10.024 with a repeat of 0.044, BNP 430 ABG pH 7.295 CO2 88 O2 38 bicarb 43 Chest x-ray has been reviewed which does show interstitial prominence suggesting fluid overload Patient has recurrent episodes of hypercapnic hypoxemic respiratory failure. He has been weak and falling but I see no evidence of trauma he has not on anticoagulation. He actually quickly turns around on BiPAP. Repeat gas shows a pH of 7.4 with CO2 of 49 He has previously had multiple CTs for pulmonary embolism and head CT. At this time I do not that is necessary. He does have a increase in his troponin I think from hypoxemia and hypercapnic respiratory failure. Dr. Torres updated on symptoms and test results. Agrees no further imaging indicated at this time he is quite familiar with patient. Happy to accept patient to ICU. Critical Care Time Critical Care Time Critical Care Time: Yes Total Critical Care Time: 39 Attestation: The high probability of a clinically significant, sudden or life threatening deterioration of the respiratory system(s) required my full and direct attention, intervention and personal management. The aggregate critical care time was 39 minutes. This time is in addition to time spent performing reported procedures but includes the following: [x] Data Review and interpretation [x] Patient assessment and monitoring of vital signs [x] Documentation [x] Medication orders and management Discharge Plan Departure Patient Disposition: Admitted As Inpatient Clinical Impression: Acute hypercapnic respiratory failure Admit Date/Time: 03/13/24 17:04 Admit Provider: Eduardo Torres
[2024-03-13 14:15] LABS: Add Manual Diff / Slide Review NO; Basophils Absolute Auto 0 /uL (0-100); Basophils Percent Auto 0.3 % (0-2); Eosinophils Absolute Auto 0 /uL (0-450); Eosinophils Percent Auto 0.2 % (2-4); Hematocrit 49.8 % (41-53); Hemoglobin 15.9 g/dL (13.5-17.5); Lymphocytes Absolute Auto 800 /uL (1100-4500); Lymphocytes Percent Auto 8.2 % (25-40); Mean Corpuscular Hemoglobin 28.9 PG (26-34); Mean Corpuscular Volume 90.2 fL (80-100); Monocytes Absolute Auto 1000 /uL (0-900); Monocytes Percent Auto 10.8 % (3-14); Neutrophils Absolute Auto 7700 /uL (1500-7000); Neutrophils Percent Auto 80.5 % (50-75); Platelet Count 179 X10^3/uL (150-400); Red Blood Cell Count 5.52 X10^6/uL (4.5-5.9); Red Cell Distribution Width 15.1 % (11.6-14.8); White Blood Cell Count 9.6 X10^3/uL (4.5-11.0)
[2024-03-13 14:18] LABS: INR 1.1 (0.9-1.3); Prothrombin Time 12.4 SECONDS (9.4-12.5)
[2024-03-13 14:22] LABS: Lactate (Lactic Acid) 0.9 mmol/L (0.7-2.1)
[2024-03-13 14:24] LABS: Alanine Aminotransferase 28 IU/L (<50); Albumin Globulin Ratio 1.3 (1.0-2.8); Alkaline Phosphatase 77 U/L (38-126); Aspartate Aminotransferase 30 IU/L (17-59); BUN Creatinine Ratio 43.5 (6-22); Bilirubin Total 0.5 mg/dL (0.2-1.3); Blood Urea Nitrogen 27 mg/dL (9-20); Calcium 8.5 mg/dL (8.4-10.2); Chloride 98 mmol/L (98-107); Creatine Kinase 71 U/L (55-170); Estimated Glomerular Filt Rate > 60 mL/min (>60); Glucose 139 mg/dL (80-110); HEMOLYSIS 23 (0-50); Magnesium 2.4 mg/dL (1.6-2.3); Potassium 4.5 mmol/L (3.4-5.1); Sodium 142 mmol/L (137-145)
[2024-03-13] MEDS: SODIUM CHLORIDE 0.9% 500 ML 1000 ML IV (14:28)
[2024-03-13 14:30] LABS: Carbon Dioxide 39 mmol/L (22-32)
[2024-03-13 14:32] LABS: NT-proBNP (BNP-Adult 18+) 430 pg/mL (<450)
[2024-03-13 14:35] LABS: Troponin I 0.024 ng/mL (0.01-0.034)
[2024-03-13 14:35] LABS: PCO2 ABG 88.9 mmHg (35-45); pH ABG 7.29 (7.35-7.45)
[2024-03-13 14:36] LABS: Base Excess ABG 11.2 mmol/L (-2-3); HCO3 ABG 43 mmol/L (23-27); PO2 ABG 39 mmHg (80-100); TCO2 ABG 45 mmol/L (23-27)
[2024-03-13 14:37] LABS: Allen Test for ABG Passed? Yes, Passed; Blood Gas Collection Site Left Radial; Delivery System RA; Fractionated Inspired Oxygen 21; Oxygen Saturation ABG 63 % (95-100)
[2024-03-13 15:40] LABS: Adenovirus Not Detected (Not Detect); B. parapertussis Not Detected (Not Detecte); Bordetella pertussis Not Detected (Not Detect); Chlamydophila pneumoniae Not Detected (Not Detect); Coronavirus 229E Not Detected (Not Detect); Coronavirus HKU1 Not Detected (Not Detect); Coronavirus NL 63 Not Detected (Not Detect); Coronavirus OC43 Not Detected (Not Detect); Human Metapneumovirus Not Detected (Not Detect); Human Rhinovirus/Enterovirus Not Detected (Not Detect); Influenza A Not Detected (Not Detect); Influenza B Not Detected (Not Detect); Mycoplasma pneumoniae Not Detected (Not Detect); Parainfluenza Virus 1 Not Detected (Not Detect); Parainfluenza Virus 2 Not Detected (Not Detect); Parainfluenza Virus 3 Not Detected (Not Detect); Parainfluenza Virus 4 Not Detected (Not Detect); Respiratory Syncytial Virus Not Detected (Not Detect); SARS- CoV-2 Not Detected (Not Detecte)
[2024-03-13] MEDS: LIDOCAINE 2% (GLYDO) 6 ML GEL TOP (15:45)
[2024-03-13 15:50] LABS: PCO2 ABG 49.7 mmHg (35-45); PO2 ABG 132 mmHg (80-100); pH ABG 7.47 (7.35-7.45)
[2024-03-13 15:51] LABS: Base Excess ABG 10.5 mmol/L (-2-3); Blood Gas Mode Bi-Level Ventilation; Delivery System BiPAP; Fractionated Inspired Oxygen 30; HCO3 ABG 36 mmol/L (23-27); Oxygen Saturation ABG 99 % (95-100); Respiratory Rate 18; TCO2 ABG 37 mmol/L (23-27)
[2024-03-13 15:52] LABS: Allen Test for ABG Passed? Yes, Passed; Blood Gas Collection Site Right Radial; PEEP 6; Pressure Support 18
[2024-03-13] MEDS: FUROSEMIDE 40 MG/4 ML VIAL IV (16:22)
[2024-03-13 16:43] LABS: Appearance Urine UA CLEAR; Bilirubin Urine UA NEGATIVE (NEGATIVE); Color Urine UA YELLOW; Glucose Urine UA NEGATIVE (Negative); Ketones Urine UA NEGATIVE (NEGATIVE); Leukocyte Esterase Urine UA TRACE (NEGATIVE); Nitrite Urine UA NEGATIVE (Negative); Occult Blood Urine UA TRACE-INTACT (Negative); Protein Urine UA 2+ (Negative)
--- NOTE | 2024-03-13 16:51 | EKG_ITS ---
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
[2024-03-13 16:53] LABS: Bacteria Urine Few (2-10); Culture Indicated Urine Specimen Cultured; RBC Urine 1-5/HPF (0-5/HPF); Squamous Epithelial Cell Urine 0-1 /HPF (0-5/HPF); Urine Volume 10mL (spun); WBC Urine 5-10/HPF (0-5/HPF)
--- NOTE | 2024-03-13 17:05 | PC.NURSE ---
Pt awoke and tried to get out of bed stating I have to pee. Pt reoriented to catheter and being in the hospital. Pt follows commands and was assisted to lay back in bed. Pt repositioned., call light available. Spouse at bedside.
[2024-03-13 17:17] LABS: Troponin I 0.044 ng/mL (0.01-0.034)
[2024-03-13 20:17] LABS: MRSA (Nasal) PCR NOT DETECTED (Not Detect)
[2024-03-13] MEDS: AMLODIPINE 5 MG TABLET PO (21:28)
[2024-03-14] VITALS (41 sets, daily range): BP systolic 81–171; BP diastolic 51–87; PULSE 80–100; RESP 18–49; TEMP 31–38; O2SAT 90–98
[2024-03-14] MEDS: ACETAMINOPHEN 325 MG TABLET 650 MG PO (04:12)
--- NOTE | 2024-03-14 07:05 | PC.NURSE ---
pt was placed on bipap last pm at 2129 and was confused at that time; bipap was removed at 399 and he was alert and oriented; he was given a dose of amlodipine 5mg po at 2127 for b/p 187/85; b/p currently 122/87; pt was medicated w/ tylenol for c/o CAMACHO
--- NOTE | 2024-03-14 08:23 | P.HP_ITS ---
History of Present Illness History of Present Illness Date Patient Seen: 03/14/24 Time Patient Seen: 08:23 Chief complaint: GLF no thinners Narrative: CC: Acute respiratory failure Patient well known to our respiratory therapy service presents with hypercapnea and confusion. He is essentially BiPAP dependent except for a couple hours at a time and will get disoriented at night and pull off the mask. He was admitted for respiratory support and improved markedly on BiPAP. Per nursing he was looking good around 430 am and was able to take off the mask however on interview this morning at 830 he looks tired and cloudy. Appetite is ok, denies any pain. [facility] Medical History (Updated 03/13/24 @ 16:56 by Carina Lazaro DO) Postop check Urinary retention Bladder calculi History of nephrolithiasis H/O nephrolithotomy with removal of calculi Renal disease Heart attack Kidney stones Enlarged prostate Hypercholesteremia Surgical History History of coronary artery stent placement Family History Mother Cancer CAD in [place] artery Hypertension Social History marital status: number of children: 1 household members: spouse Smoking Status: Former smoker alcohol intake: current Type(s) of exercise: walking frequency: 1-2 times per week Meds Home Medications and Allergies Home Medications Medication Instructions Recorded Confirmed Type cholecalciferol (vitamin D3) 50 50 mcg PO DAILY 11/27/22 03/13/24 History mcg (2,000 unit) capsule (Vitamin D3) fluticasone 250 mcg-salmeterol 50 1 inh inhalation BID #60 ea 08/14/23 03/13/24 Rx mcg/dose blistr powdr for inhalation inhalational spacing device #1 ea 11/14/23 03/13/24 Rx (Aerochamber MV spacer) albuterol sulfate 90 mcg/actuation 2 puff inhalation Q4H PRN Wheezing 01/08/24 03/13/24 History aerosol inhaler ketoconazole 2 % shampoo 1 applic topical DAILY 01/08/24 03/13/24 History rosuvastatin 10 mg tablet 10 mg PO DAILY 01/08/24 03/13/24 History docusate sodium 100 mg capsule 100 mg PO BID PRN Constipation 02/02/24 03/13/24 History acetaminophen 500 mg tablet 500 mg PO Q6H PRN Pain (Scale 03/04/24 03/13/24 History (Tylenol Extra Strength) Score 1-3) calcium carb 333 mg-vit D3 133 1 tab PO DAILY 03/04/24 03/13/24 History unit-mag ox 133 mg-zinc oxide 5 mg tab (Hany Mag Zinc Plus D3) flaxseed oil 1,000 mg capsule 1,000 mg PO DAILY 03/04/24 03/13/24 History mecobalamin (vitamin B12) 5,000 5,000 mcg PO DAILY 03/04/24 03/13/24 History mcg disintegrating tablet vitamin K2 45 mcg capsule 45 mcg PO DAILY 03/04/24 03/13/24 History Disable Parking Permit #1 ea 03/12/24 03/13/24 Rx Allergies Allergy/AdvReac Type Severity Reaction Status Date / Time No Known Drug Allergies Allergy Verified 03/04/24 13:55 Review of Systems Review of Systems Narrative: all systems reviewed and negative except as otherwise documented in HPI Exam Vital Signs (past 8 hours): - 03/14/24 00:27 03/14/24 01:00 03/14/24 01:00 Temperature 100.4 F H Pulse Rate 91 H Respiratory Rate 19 Blood Pressure 99/51 L 102/55 L Pulse Oximetry 94 Oxygen Delivery Method Oxygen Flow Rate 1 Fraction of Inspired Oxygen 03/14/24 02:00 03/14/24 02:00 03/14/24 02:02 Temperature 100.4 F H 100.4 F H Pulse Rate 90 91 H Respiratory Rate 18 18 Blood Pressure 90/51 L Pulse Oximetry 96 95 Oxygen Delivery Method Oxygen Flow Rate Fraction of Inspired Oxygen 03/14/24 02:02 03/14/24 02:34 03/14/24 03:00 Temperature 100.4 F H Pulse Rate 91 H Respiratory Rate 22 Blood Pressure 95/56 L 95/56 L 132/58 L Pulse Oximetry 92 Oxygen Delivery Method Oxygen Flow Rate 1 1 Fraction of Inspired Oxygen 03/14/24 04:00 03/14/24 04:00 03/14/24 04:33 Temperature 100.2 F H Pulse Rate 92 H 92 H Respiratory Rate 30 H Blood Pressure 121/63 Pulse Oximetry 93 97 Oxygen Delivery Method Nasal Cannula Oxygen Flow Rate 1 1.5 Fraction of Inspired Oxygen 03/14/24 05:00 03/14/24 05:00 03/14/24 06:00 Temperature 99.7 F H 98.8 F Pulse Rate 100 H 92 H Respiratory Rate 24 24 Blood Pressure 159/72 H Pulse Oximetry 95 98 Oxygen Delivery Method Oxygen Flow Rate 1 Fraction of Inspired Oxygen 03/14/24 06:00 03/14/24 06:39 Temperature Pulse Rate Respiratory Rate Blood Pressure 134/62 Pulse Oximetry 96 Oxygen Delivery Method Nasal Cannula Oxygen Flow Rate 1 1.5 Fraction of Inspired Oxygen Fraction of Inspired Oxygen 21 Oxygen Delivery Method Nasal Cannula Oxygen Flow Rate 1.5 Narrative Exam Narrative: resting in bed with mask off Const Other: looks tired and thin Resp Other: moderately labored breathing, on NC, he is getting tired Cardio Other: regular rate S1/S2 GI Other: active bowel sounds soft nontender Neuro Other: alert oriented but foggy moving all limbs Objective Labs 03/13/24 13:53 03/13/24 13:53 Labs: Laboratory Results - last 24 hr 03/13/24 03/13/24 03/13/24 13:53 13:56 14:11 WBC 9.6 RBC 5.52 Hgb 15.9 Hct 49.8 MCV 90.2 MCH 28.9 MCHC 32.0 RDW 15.1 H Plt Count 179 Neut % (Auto) 80.5 H Lymph % (Auto) 8.2 L [place] % (Auto) 10.8 Eos % (Auto) 0.2 L Baso % (Auto) 0.3 Neut # (Auto) 7700 H Lymph # (Auto) 800 L [place] # (Auto) 1000 H Eos # (Auto) 0 Baso # (Auto) 0 PT 12.4 INR 1.1 ABG Sample Site Left radial ABG pH 7.29 L* ABG pCO2 88.9 H* ABG pO2 39 L* ABG HCO3 43 H ABG Total CO2 45 H ABG O2 Saturation 63 L* ABG Base Excess 11.2 H Respiration Rate O2 Delivery Device Ra Mode of Support FiO2 21 Pressure Support PEEP or CPAP Sodium 142 Potassium 4.5 Chloride 98 Carbon Dioxide 39 H BUN 27 H Creatinine 0.62 L Estimated GFR > 60 BUN/Creatinine Ratio 43.5 H Glucose 139 H Lactate 0.9 Calcium 8.5 Magnesium 2.4 H Total Bilirubin 0.5 AST 30 ALT 28 Alkaline Phosphatase 77 Total Creatine Kinase 71 Troponin I 0.024 NT-Pro-B Natriuret Pep 430 Total Protein 7.0 Albumin 4.0 Globulin 3.0 Albumin/Globulin Ratio 1.3 Urine Color Urine Appearance Urine pH Ur Specific [place] Urine Protein Urine Glucose (UA) Urine Ketones Urine Occult Blood Urine Nitrate Urine Bilirubin Urine Urobilinogen Ur Leukocyte Esterase Urine RBC Urine WBC Ur Squamous Epith Cells Urine Bacteria Ur Culture Indicated? Vol Urine Centrifuged Nasal Screen MRSA (PCR) Chlamy pneumoniae PCR Not detected Adenovirus (PCR) Not detected B.parapertussis DNA PCR Not detected Coronavirus OC43 (PCR) Not detected Coronavirus HKU1 (PCR) Not detected Coronavirus 229E (PCR) Not detected SARS-CoV-2 (PCR) Not detected Coronavirus NL63 (PCR) Not detected Human Metapneumovir PCR Not detected Influenza Type A (PCR) Not detected Influenza Type B (PCR) Not detected M. pneumoniae (PCR) Not detected Parainfluenza 1 (PCR) Not detected Parainfluenza 2 (PCR) Not detected Parainfluenza 3 (PCR) Not detected Parainfluenza 4 (PCR) Not detected RSV (PCR) Not detected Entero/Rhino (PCR) Not detected 03/13/24 03/13/24 03/13/24 15:36 15:53 16:45 WBC RBC Hgb Hct MCV MCH MCHC RDW Plt Count Neut % (Auto) Lymph % (Auto) [place] % (Auto) Eos % (Auto) Baso % (Auto) Neut # (Auto) Lymph # (Auto) [place] # (Auto) Eos # (Auto) Baso # (Auto) PT INR ABG Sample Site Right radial ABG pH 7.47 H ABG pCO2 49.7 H ABG pO2 132 H ABG HCO3 36 H ABG Total CO2 37 H ABG O2 Saturation 99 ABG Base Excess 10.5 H Respiration Rate 18 O2 Delivery Device Bipap Mode of Support Bi-level ventilation FiO2 30 Pressure Support 18 PEEP or CPAP 6 Sodium Potassium Chloride Carbon Dioxide BUN Creatinine Estimated GFR BUN/Creatinine Ratio Glucose Lactate Calcium Magnesium Total Bilirubin AST ALT Alkaline Phosphatase Total Creatine Kinase Troponin I 0.044 H NT-Pro-B Natriuret Pep Total Protein Albumin Globulin Albumin/Globulin Ratio Urine Color Yellow Urine Appearance Clear Urine pH 7.0 Ur Specific [place] 1.020 Urine Protein 2+ H Urine Glucose (UA) Negative Urine Ketones Negative Urine Occult Blood Trace-intact Urine Nitrate Negative Urine Bilirubin Negative Urine Urobilinogen 1.0 Ur Leukocyte Esterase Trace H Urine RBC 1-5/hpf D Urine WBC 5-10/hpf H Ur Squamous Epith Cells 0-1 /hpf Urine Bacteria Few (2-10) H Ur Culture Indicated? Specimen cultured Vol Urine Centrifuged 10ml (spun) Nasal Screen MRSA (PCR) Chlamy pneumoniae PCR Adenovirus (PCR) B.parapertussis DNA PCR Coronavirus OC43 (PCR) Coronavirus HKU1 (PCR) Coronavirus 229E (PCR) SARS-CoV-2 (PCR) Coronavirus NL63 (PCR) Human Metapneumovir PCR Influenza Type A (PCR) Influenza Type B (PCR) M. pneumoniae (PCR) Parainfluenza 1 (PCR) Parainfluenza 2 (PCR) Parainfluenza 3 (PCR) Parainfluenza 4 (PCR) RSV (PCR) Entero/Rhino (PCR) 03/13/24 18:00 WBC RBC Hgb Hct MCV MCH MCHC RDW Plt Count Neut % (Auto) Lymph % (Auto) [place] % (Auto) Eos % (Auto) Baso % (Auto) Neut # (Auto) Lymph # (Auto) [place] # (Auto) Eos # (Auto) Baso # (Auto) PT INR ABG Sample Site ABG pH ABG pCO2 ABG pO2 ABG HCO3 ABG Total CO2 ABG O2 Saturation ABG Base Excess Respiration Rate O2 Delivery Device Mode of Support FiO2 Pressure Support PEEP or CPAP Sodium Potassium Chloride Carbon Dioxide BUN Creatinine Estimated GFR BUN/Creatinine Ratio Glucose Lactate Calcium Magnesium Total Bilirubin AST ALT Alkaline Phosphatase Total Creatine Kinase Troponin I NT-Pro-B Natriuret Pep Total Protein Albumin Globulin Albumin/Globulin Ratio Urine Color Urine Appearance Urine pH Ur Specific [place] Urine Protein Urine Glucose (UA) Urine Ketones Urine Occult Blood Urine Nitrate Urine Bilirubin Urine Urobilinogen Ur Leukocyte Esterase Urine RBC Urine WBC Ur Squamous Epith Cells Urine Bacteria Ur Culture Indicated? Vol Urine Centrifuged Nasal Screen MRSA (PCR) Not detected Chlamy pneumoniae PCR Adenovirus (PCR) B.parapertussis DNA PCR Coronavirus OC43 (PCR) Coronavirus HKU1 (PCR) Coronavirus 229E (PCR) SARS-CoV-2 (PCR) Coronavirus NL63 (PCR) Human Metapneumovir PCR Influenza Type A (PCR) Influenza Type B (PCR) M. pneumoniae (PCR) Parainfluenza 1 (PCR) Parainfluenza 2 (PCR) Parainfluenza 3 (PCR) Parainfluenza 4 (PCR) RSV (PCR) Entero/Rhino (PCR) Assessment & Plan Assessment & Plan narrative: #Acute on chronic hypercapneic respiratory failure Same problem as previous admission. Trouble is keeping mask on reliably. Will work with respiratory to come up with plan for this. He may be reaching the limits of medical support but as long as he keeps mask on he does ok. #Elevated troponin. Likely demand ischemia, rechecking labs today #hyperlipidemia continue home meds dispo: pending improvement and plan PCP: Brian MDM: diet: general code: DNR
[2024-03-14] MEDS: ENOXAPARIN 40 MG/0.4 ML SYRINGE SUBCUT (09:36)
[2024-03-14] MEDS: DOCUSATE 100 MG CAPSULE PO (09:36)
[2024-03-14] MEDS: ATORVASTATIN 20 MG TABLET PO (09:36)
--- NOTE | 2024-03-14 10:40 | PC.NURSE ---
Day shift note: 0840 Pt c/o being a little fuzzy headed after being off bipap for a few hours. Placed pt back on BiPap / 21% at 0930. Pt tolerating well, no further needs at this time
[2024-03-14 11:33] LABS: Add Manual Diff / Slide Review NO; Basophils Absolute Auto 0 /uL (0-100); Basophils Percent Auto 0.4 % (0-2); Eosinophils Absolute Auto 0 /uL (0-450); Eosinophils Percent Auto 0.2 % (2-4); Hematocrit 46.3 % (41-53); Hemoglobin 14.8 g/dL (13.5-17.5); Lymphocytes Absolute Auto 900 /uL (1100-4500); Lymphocytes Percent Auto 11.6 % (25-40); Mean Corpuscular Hemoglobin 28.8 PG (26-34); Mean Corpuscular Volume 89.8 fL (80-100); Monocytes Absolute Auto 800 /uL (0-900); Neutrophils Absolute Auto 6200 /uL (1500-7000); Neutrophils Percent Auto 77.8 % (50-75); Platelet Count 141 X10^3/uL (150-400); Red Blood Cell Count 5.16 X10^6/uL (4.5-5.9); Red Cell Distribution Width 15.6 % (11.6-14.8)
[2024-03-14 11:57] LABS: Alanine Aminotransferase 22 IU/L (<50); Albumin 3.4 g/dL (3.5-5.0); Albumin Globulin Ratio 1.4 (1.0-2.8); Alkaline Phosphatase 65 U/L (38-126); Aspartate Aminotransferase 34 IU/L (17-59); BUN Creatinine Ratio 29.2 (6-22); Bilirubin Total 0.5 mg/dL (0.2-1.3); Blood Urea Nitrogen 26 mg/dL (9-20); Calcium 8.3 mg/dL (8.4-10.2); Chloride 94 mmol/L (98-107); Estimated Glomerular Filt Rate > 60 mL/min (>60); Globulin 2.5 g/dL (1.7-4.1); Glucose 115 mg/dL (80-110); Potassium 4.3 mmol/L (3.4-5.1); Sodium 139 mmol/L (137-145); Total Protein 5.9 g/dL (6.3-8.2)
[2024-03-14 12:03] LABS: HEMOLYSIS 25 (0-50)
[2024-03-14 12:08] LABS: Troponin I 0.059 ng/mL (0.01-0.034)
[2024-03-14 12:54] LABS: Carbon Dioxide 39 mmol/L (22-32)
--- NOTE | 2024-03-14 12:54 | CM.DANOTE ---
Initial DCP Assessment Note Pt is a 78 yo male, resident of [facility], history of coronary artery disease , restrictive lung disease chronic hypercapnic respiratory failure presents after multiple syncopal episodes at home. Patient was admitted from 5.11-5.15 for management of acute on chronic hypercapnic respiratory failure and Elevated troponin. Discharge home with spouse and a newly authorized Bipap machine for home use. PCP: Eduardo Torres Payer: Iam RAMON Reviewed chart, pt discussed with BYRON Plunkett and Dr Torres today. Patient, spouse and friends/neighbors present today and are discussing next steps in patient's treatment plan. Patient has been living at home w/spouse on [facility], A+Ox4, mostly indp w/ADLs, poor activity tolerance r/t SOB. According to Dr Torres , spouse considering hospice services and would like to discuss next steps with this MEDICAL BILLING INSTRUCTOR. Met w/spouse and her two close friends/neighbors outside of patient's room, patient on Bipap, sleeping; educated on basics of palliative care vs hospice. Explained that Palliative Care is a treatment approach often used for those living with life limiting chronic disease. Palliative Care is meant to be a supportive, not curative pathway and often is a bridge to hospice care. Strictly speaking, there are no outpatient Palliative Care programs/services available to patient on [facility]. Discussed Hospice service and emphasized it's end of life focus, meant to keep people in their home and as comfortable as possible. Explained people can graduate off of hospice if there is improvement. Spouse and friends asked thoughtful questions throughout this visit. Spouse unsure whether patient is ready for end of life care. Inevitably it became clear that spouse needed additional clinical information about patient's diagnosis and disease trajectory before making a decision about next steps. In addition, spouse planned to speak with patient about the information that this MEDICAL BILLING INSTRUCTOR presented. Spouse and friends appreciative. Updated BYRON Plunkett with summary of above. CM team will plan to follow clinical course closely and will remain available for assist with discharge planning. TAYLOR Machuca Discharge Planning/Care Management CM Discharge Assessment Start: 03/14/24 12:36 Freq: Status: Active Protocol: Document 03/14/24 12:36 MELISSA (Rec: 03/14/24 12:53 MELISSA [id number]) Discharge Planning Assessment Assigned Hydrometer Tester TAYLOR Solorzano DPOA/Assigned Designee Name Carmelita Boggs, spouse Contact Information [phone] Advance Directives? Yes: POLST Advance Directives on File Yes History Provided By Patient,Friend,Significant Other,Medical Record Comment Patient admitted 5.11-5.15 Prior Living Arrangements House Household Members spouse Type of transporation used prior to Relies on Others admit Independent with ADL's Yes: Poor activity tolerance Is patient alert and oriented? Yes Needs Assistance With Meal Prep,Home Chores / Shopping Barriers to Discharge No Comment Anticipating discharge home with spouse, family and friends. Discharge Plan Home Transportation Arrangement Spouse Additional Comment TBD
[2024-03-14] MEDS: HYDROCODONE/ACET 5/325 TABLET 1 TAB PO (13:13)
[2024-03-14] MEDS: CALCIUM CARBONATE 500 MG TAB PO (13:13)
[2024-03-15] VITALS (29 sets, daily range): BP systolic 90–170; BP diastolic 54–89; PULSE 76–98; RESP 18–47; TEMP 31–37.5; O2SAT 91–97
[2024-03-15] MEDS: ACETAMINOPHEN 325 MG TABLET 650 MG PO (04:12)
[2024-03-15 05:18] LABS: Add Manual Diff / Slide Review NO; Basophils Absolute Auto 0 /uL (0-100); Basophils Percent Auto 0.5 % (0-2); Eosinophils Absolute Auto 0 /uL (0-450); Eosinophils Percent Auto 0.3 % (2-4); Hematocrit 43.4 % (41-53); Lymphocytes Absolute Auto 1300 /uL (1100-4500); Lymphocytes Percent Auto 14.1 % (25-40); Mean Corpuscular HGB Conc 32.3 % (30-36); Mean Corpuscular Hemoglobin 28.7 PG (26-34); Mean Corpuscular Volume 88.7 fL (80-100); Monocytes Absolute Auto 1200 /uL (0-900); Monocytes Percent Auto 13.7 % (3-14); Neutrophils Absolute Auto 6400 /uL (1500-7000); Neutrophils Percent Auto 71.4 % (50-75); Platelet Count 122 X10^3/uL (150-400); Red Blood Cell Count 4.89 X10^6/uL (4.5-5.9); Red Cell Distribution Width 15.3 % (11.6-14.8); White Blood Cell Count 8.9 X10^3/uL (4.5-11.0)
[2024-03-15 05:32] LABS: Alanine Aminotransferase 18 IU/L (<50); Albumin 2.9 g/dL (3.5-5.0); Albumin Globulin Ratio 1.2 (1.0-2.8); Alkaline Phosphatase 64 U/L (38-126); Aspartate Aminotransferase 27 IU/L (17-59); BUN Creatinine Ratio 32.4 (6-22); Bilirubin Total 0.7 mg/dL (0.2-1.3); Blood Urea Nitrogen 24 mg/dL (9-20); Calcium 8.3 mg/dL (8.4-10.2); Chloride 97 mmol/L (98-107); Estimated Glomerular Filt Rate > 60 mL/min (>60); Globulin 2.4 g/dL (1.7-4.1); Glucose 94 mg/dL (80-110); HEMOLYSIS < 15 (0-50); Potassium 3.9 mmol/L (3.4-5.1); Sodium 135 mmol/L (137-145); Total Protein 5.3 g/dL (6.3-8.2)
[2024-03-15 05:56] LABS: Carbon Dioxide 37 mmol/L (22-32)
--- NOTE | 2024-03-15 06:35 | P.PN_ITS ---
Subjective Subjective Date Patient Seen: 03/15/24 Time Patient Seen: 06:35 Interval history: Patient seen and evaluated this morning. His BiPAP is off. Says he has feeling okay had a good night. Not confused. Has a catheter in his bladder. Eating okay no stomach pain no chest pain. We discussed about discharge plan. He and Dr. more had discussed about end-stage disease with his chronic respiratory failure. Plan is for hospice discharge. Patient anxious to go home. Exam Vital Signs (past 8 hours): - 03/14/24 23:00 03/14/24 23:00 03/15/24 00:00 Temperature 99.5 F 99.5 F Pulse Rate 81 81 Respiratory Rate 18 21 Blood Pressure 121/63 Pulse Oximetry 97 97 Oxygen Delivery Method 03/15/24 00:00 03/15/24 01:00 03/15/24 01:00 Temperature 99.3 F Pulse Rate 81 Respiratory Rate Blood Pressure 123/62 Pulse Oximetry 91 Oxygen Delivery Method BiPAP 03/15/24 02:00 03/15/24 02:00 03/15/24 03:00 Temperature 98.8 F 98.8 F Pulse Rate 81 80 Respiratory Rate 19 24 Blood Pressure 119/60 Pulse Oximetry 97 93 Oxygen Delivery Method 03/15/24 03:00 03/15/24 04:00 03/15/24 04:00 Temperature 98.8 F Pulse Rate 79 Respiratory Rate 22 Blood Pressure 127/59 L 118/59 L Pulse Oximetry 93 Oxygen Delivery Method 03/15/24 05:00 03/15/24 05:00 03/15/24 05:00 Temperature 99.0 F Pulse Rate 76 Respiratory Rate 26 H Blood Pressure 113/59 L Pulse Oximetry 96 Oxygen Delivery Method BiPAP 03/15/24 06:00 03/15/24 06:01 03/15/24 06:01 Temperature 99.1 F 99.1 F Pulse Rate 79 77 Respiratory Rate 30 H 27 H Blood Pressure 109/63 Pulse Oximetry 94 96 Oxygen Delivery Method Fraction of Inspired Oxygen 21 Oxygen Delivery Method BiPAP Oxygen Flow Rate 1.5 Narrative Exam Narrative: Gen.: Alert oriented to time and place HEENT: Pupils equal round and reactive or mucosa is moist nasal cannula in place Cardio: S1-S2 regular rate and rhythm Respiratory: Respiratory increased work of breathing. With decreased breath sounds throughout with some mild expiratory wheezing Abdomen: Soft nontender no rebound or guarding Extremities: No significant edema warm dry perfused Objective Labs 03/15/24 04:45 03/15/24 04:45 Labs: Laboratory Results - last 24 hr 03/14/24 03/15/24 11:15 04:45 WBC 8.0 8.9 RBC 5.16 4.89 Hgb 14.8 14.0 Hct 46.3 43.4 MCV 89.8 88.7 MCH 28.8 28.7 MCHC 32.0 32.3 RDW 15.6 H 15.3 H Plt Count 141 L 122 L Neut % (Auto) 77.8 H 71.4 Lymph % (Auto) 11.6 L 14.1 L [place] % (Auto) 10.0 13.7 Eos % (Auto) 0.2 L 0.3 L Baso % (Auto) 0.4 0.5 Neut # (Auto) 6200 6400 Lymph # (Auto) 900 L 1300 [place] # (Auto) 800 1200 H Eos # (Auto) 0 0 Baso # (Auto) 0 0 Sodium 139 135 L Potassium 4.3 3.9 Chloride 94 L 97 L Carbon Dioxide 39 H 37 H BUN 26 H 24 H Creatinine 0.89 0.74 Estimated GFR > 60 > 60 BUN/Creatinine Ratio 29.2 H 32.4 H Glucose 115 H 94 Calcium 8.3 L 8.3 L Total Bilirubin 0.5 0.7 AST 34 27 ALT 22 18 Alkaline Phosphatase 65 64 Troponin I 0.059 H Total Protein 5.9 L 5.3 L Albumin 3.4 L 2.9 L Globulin 2.5 2.4 Albumin/Globulin Ratio 1.4 1.2 PFSH Medical History (Updated 03/13/24 @ 16:56 by Carina Lazaro DO) Postop check Urinary retention Bladder calculi History of nephrolithiasis H/O nephrolithotomy with removal of calculi Renal disease Heart attack Kidney stones Enlarged prostate Hypercholesteremia Surgical History History of coronary artery stent placement Family History Mother Cancer CAD in [place] artery Hypertension Social History marital status: number of children: 1 household members: spouse Smoking Status: Former smoker alcohol intake: current Type(s) of exercise: walking frequency: 1-2 times per week Assessment & Plan Assessment and plan (1) Acute hypercapnic respiratory failure: Status: Acute Plan Patient admitted to the hospital with acute on chronic hypercapnic respiratory failure. Patient is BiPAP dependent. 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 Last admission a few weeks ago. Family care conference yesterday with patient's primary care physician. Due to patient's end-stage nature of disease plan is for patient to go home with hospice care. Patient is currently comfortable in the hospital. On nasal cannula oxygen here the BiPAP dependent a majority of the day. Does not appear to be in infectious etiology. Does appear to be disease progression. Patient has seen multiple specialists including digital x ray service engineer. Coronary artery disease with type 2 myocardial infarction. Patient with mild elevation of troponins assume due to her underlying coronary artery disease as well as ischemia due to significant hypoxic respiratory failure. Cardiac enzymes are always mildly to moderately elevated. EKG was reviewed which showed no significant changes. Urinary retention. Patient with recent procedure to help with that. Has a Knox catheter in place. No signs of infection in his urinalysis. Recommend removal of urinary catheter. Hyperlipidemia. Patient on statin DVT prophylaxis with Lovenox Disposition plan. Patient will be discharged with assistance of hospice once that is arranged patient will be able to go home.
[2024-03-15] MEDS: ENOXAPARIN 40 MG/0.4 ML SYRINGE SUBCUT (08:56)
[2024-03-15] MEDS: ATORVASTATIN 20 MG TABLET PO (08:56)
[2024-03-15] MEDS: HYDROCODONE/ACET 5/325 TABLET 1 TAB PO (11:43)
[2024-03-16] VITALS (31 sets, daily range): BP systolic 88–177; BP diastolic 54–79; PULSE 73–98; RESP 18–43; TEMP 31–37; O2SAT 92–98
[2024-03-16 05:37] LABS: Add Manual Diff / Slide Review NO; Basophils Absolute Auto 0 /uL (0-100); Basophils Percent Auto 0.2 % (0-2); Eosinophils Absolute Auto 0 /uL (0-450); Eosinophils Percent Auto 0.4 % (2-4); Hematocrit 42.8 % (41-53); Hemoglobin 14.2 g/dL (13.5-17.5); Lymphocytes Absolute Auto 900 /uL (1100-4500); Lymphocytes Percent Auto 11.5 % (25-40); Mean Corpuscular Hemoglobin 29.2 PG (26-34); Mean Corpuscular Volume 88.5 fL (80-100); Monocytes Absolute Auto 1100 /uL (0-900); Monocytes Percent Auto 13.8 % (3-14); Neutrophils Absolute Auto 5900 /uL (1500-7000); Neutrophils Percent Auto 74.1 % (50-75); Platelet Count 129 X10^3/uL (150-400); Red Blood Cell Count 4.84 X10^6/uL (4.5-5.9); Red Cell Distribution Width 15.3 % (11.6-14.8); White Blood Cell Count 7.9 X10^3/uL (4.5-11.0)
[2024-03-16 05:48] LABS: Alanine Aminotransferase 19 IU/L (<50); Albumin 3.1 g/dL (3.5-5.0); Albumin Globulin Ratio 1.3 (1.0-2.8); Alkaline Phosphatase 65 U/L (38-126); Aspartate Aminotransferase 25 IU/L (17-59); BUN Creatinine Ratio 36.5 (6-22); Bilirubin Total 0.7 mg/dL (0.2-1.3); Blood Urea Nitrogen 23 mg/dL (9-20); Calcium 8.2 mg/dL (8.4-10.2); Carbon Dioxide 38 mmol/L (22-32); Chloride 101 mmol/L (98-107); Estimated Glomerular Filt Rate > 60 mL/min (>60); Globulin 2.4 g/dL (1.7-4.1); Glucose 104 mg/dL (80-110); HEMOLYSIS 18 (0-50); Potassium 3.7 mmol/L (3.4-5.1); Sodium 135 mmol/L (137-145); Total Protein 5.5 g/dL (6.3-8.2)
[2024-03-16] MEDS: ATORVASTATIN 20 MG TABLET PO (08:55)
[2024-03-16] MEDS: ENOXAPARIN 40 MG/0.4 ML SYRINGE SUBCUT (08:55)
--- NOTE | 2024-03-16 10:04 | PM.PN.1 ---
Subjective Subjective Date Patient Seen: 03/16/24 Time Patient Seen: 10:04 Interval history: Patient seen and evaluated his is at bedside. Had a comfortable night last night. Eating food without difficulty. Blood pressure stable today. No fever. Still has Knox catheter in will go ahead and remove that today. Trying to get trilogy for his BiPAP at home. Paperwork was filled out yesterday. Had a discussion about palliative care and hospice care. No complaints of pain. Just respiratory distress Exam Vital Signs (past 8 hours): - 03/16/24 03:00 03/16/24 03:00 03/16/24 03:02 Temperature Pulse Rate 87 Respiratory Rate 39 H Blood Pressure 177/79 H 162/68 H Pulse Oximetry 95 Oxygen Delivery Method Oxygen Flow Rate Fraction of Inspired Oxygen 03/16/24 03:02 03/16/24 04:00 03/16/24 04:00 Temperature Pulse Rate 86 79 Respiratory Rate 35 H 28 H Blood Pressure 137/60 Pulse Oximetry 97 92 Oxygen Delivery Method Oxygen Flow Rate Fraction of Inspired Oxygen 03/16/24 05:00 03/16/24 05:00 03/16/24 05:00 Temperature Pulse Rate Respiratory Rate Blood Pressure 117/64 Pulse Oximetry Oxygen Delivery Method BiPAP Oxygen Flow Rate Fraction of Inspired Oxygen 21 03/16/24 05:00 03/16/24 06:00 03/16/24 06:00 Temperature Pulse Rate 78 73 Respiratory Rate 21 33 H Blood Pressure 119/63 Pulse Oximetry 95 97 Oxygen Delivery Method Oxygen Flow Rate Fraction of Inspired Oxygen 03/16/24 07:00 03/16/24 07:00 03/16/24 08:00 Temperature Pulse Rate 75 91 H Respiratory Rate 27 H 41 H Blood Pressure 125/59 L Pulse Oximetry 96 98 Oxygen Delivery Method Oxygen Flow Rate Fraction of Inspired Oxygen 03/16/24 08:00 03/16/24 09:00 03/16/24 09:24 Temperature 98 F Pulse Rate Respiratory Rate Blood Pressure 170/78 H Pulse Oximetry 97 Oxygen Delivery Method Nasal Cannula BiPAP Nasal Cannula Oxygen Flow Rate 2 Fraction of Inspired Oxygen Fraction of Inspired Oxygen 21 Oxygen Delivery Method Nasal Cannula Oxygen Flow Rate 2 Narrative Exam Narrative: Gen.: Alert oriented to person place HEENT: Pupils equal round and reactive or mucosa is moist Cardio: S1-S2 regular rate and rhythm Respiratory: Decreased breath sounds throughout increased work of breathing with some expiratory wheezes Abdomen: Soft nontender Extremities: Trace edema Objective Labs 03/16/24 04:40 03/16/24 04:40 Labs: Laboratory Results - last 24 hr 03/16/24 04:40 WBC 7.9 RBC 4.84 Hgb 14.2 Hct 42.8 MCV 88.5 MCH 29.2 MCHC 33.0 RDW 15.3 H Plt Count 129 L Neut % (Auto) 74.1 Lymph % (Auto) 11.5 L [place] % (Auto) 13.8 Eos % (Auto) 0.4 L Baso % (Auto) 0.2 Neut # (Auto) 5900 Lymph # (Auto) 900 L [place] # (Auto) 1100 H Eos # (Auto) 0 Baso # (Auto) 0 Sodium 135 L Potassium 3.7 Chloride 101 Carbon Dioxide 38 H BUN 23 H Creatinine 0.63 L Estimated GFR > 60 BUN/Creatinine Ratio 36.5 H Glucose 104 Calcium 8.2 L Total Bilirubin 0.7 AST 25 ALT 19 Alkaline Phosphatase 65 Total Protein 5.5 L Albumin 3.1 L Globulin 2.4 Albumin/Globulin Ratio 1.3 PFSH Medical History (Updated 03/13/24 @ 16:56 by Carina Lazaro DO) Postop check Urinary retention Bladder calculi History of nephrolithiasis H/O nephrolithotomy with removal of calculi Renal disease Heart attack Kidney stones Enlarged prostate Hypercholesteremia Surgical History History of coronary artery stent placement Family History Mother Cancer CAD in [place] artery Hypertension Social History marital status: number of children: 1 household members: spouse Smoking Status: Former smoker alcohol intake: current Type(s) of exercise: walking frequency: 1-2 times per week Assessment & Plan Assessment and plan (1) Acute hypercapnic respiratory failure: Status: Acute Plan Chronic hypercapnia respiratory failure mild asthma with restrictive lung disease. Patient is on BiPAP and dependent on this. His current BiPAP at home has been on successful in keeping him out of the hospital with acute exacerbation of respiratory failure. Paperwork was filled out yesterday to get him on BiPAP ST or trilogy which may help. Discussion again with he and his today about social work support palliative care and hospice care. They are green to have a hospice consultation at home. Patient is in his chronic and stable state at this time. Continuing BiPAP about 20 hours a day. Despite this he has had additional hospitalization admissions. There has been some discussion about clarity of his diagnosis around his ongoing respiratory failure and discussed that with he and his today after review of the pulmonology notes. Chest x-ray shows interstitial prominence echocardiogram shows normal ejection fraction. Hypertension blood pressure is well controlled Hyperlipidemia on rosuvastatin this will be continued BPH recent Aquablation procedure remove Konx catheter today. Disposition and plan discharge tomorrow. Respiratory therapy is working on getting him home trilogy system which be helpful. Hospice consultation for patient to have at home to support his HARMONY HUGGINS Charge codes Subsequent inpatient/observation care: 13150
[2024-03-16] MEDS: BUDESONIDE 0.5 MG/2 ML NEB INH ×2 (10:05→19:20)
[2024-03-16] MEDS: ALBUTEROL 2.5 MG/3 ML NEB (ADULT) INH ×3 (10:05→23:12)
--- NOTE | 2024-03-16 14:27 | CM.DPNOTE ---
DCP Note CENTER PUNCH OPERATOR reviewed EMR. Per Durga note, anticipate home tomorrow with hospice involvement. CENTER PUNCH OPERATOR met with pt and spouse Carmelita in room. At this point, pt and spouse would prefer to dc home with the triology machine and would just like an info visit from hospice but not to start services. CENTER PUNCH OPERATOR gave pt copy of IMM. CENTER PUNCH OPERATOR answered questions to the best of ability. CENTER PUNCH OPERATOR spoke with Mariela from [facility]. Faxed initial referral information and asked for an info visit. Mariela in agreement. Mariela confirmed they can do BiPAP with their services but not trilogy. P: anticipate home tomorrow with spouse support. [facility] will reach out to coordinate informational visit. CM team will continue to follow closely. TAYLOR Bosch
[2024-03-16] MEDS: SODIUM CHLORIDE 0.9% FLUSH 10 ML IV (21:25)
[2024-03-17] VITALS (37 sets, daily range): BP systolic 94–155; BP diastolic 54–86; PULSE 74–96; RESP 18–50; TEMP 31–37.5; O2SAT 93–98
[2024-03-17] MEDS: ACETAMINOPHEN 325 MG TABLET 650 MG PO (05:07)
[2024-03-17 05:23] LABS: Add Manual Diff / Slide Review NO; Basophils Absolute Auto 0 /uL (0-100); Basophils Percent Auto 0.5 % (0-2); Eosinophils Absolute Auto 100 /uL (0-450); Eosinophils Percent Auto 0.9 % (2-4); Hematocrit 43.6 % (41-53); Hemoglobin 14.2 g/dL (13.5-17.5); Lymphocytes Absolute Auto 1200 /uL (1100-4500); Lymphocytes Percent Auto 15.1 % (25-40); Mean Corpuscular HGB Conc 32.6 % (30-36); Mean Corpuscular Hemoglobin 28.9 PG (26-34); Mean Corpuscular Volume 88.6 fL (80-100); Monocytes Absolute Auto 1200 /uL (0-900); Monocytes Percent Auto 14.7 % (3-14); Neutrophils Absolute Auto 5500 /uL (1500-7000); Neutrophils Percent Auto 68.8 % (50-75); Platelet Count 124 X10^3/uL (150-400); Red Blood Cell Count 4.92 X10^6/uL (4.5-5.9); Red Cell Distribution Width 15.5 % (11.6-14.8); White Blood Cell Count 7.9 X10^3/uL (4.5-11.0)
[2024-03-17 06:00] LABS: Alanine Aminotransferase 27 IU/L (<50); Albumin 3.2 g/dL (3.5-5.0); Albumin Globulin Ratio 1.3 (1.0-2.8); Alkaline Phosphatase 73 U/L (38-126); Aspartate Aminotransferase 34 IU/L (17-59); BUN Creatinine Ratio 33.9 (6-22); Bilirubin Total 0.7 mg/dL (0.2-1.3); Blood Urea Nitrogen 21 mg/dL (9-20); Calcium 8.1 mg/dL (8.4-10.2); Carbon Dioxide 38 mmol/L (22-32); Chloride 101 mmol/L (98-107); Estimated Glomerular Filt Rate > 60 mL/min (>60); Globulin 2.5 g/dL (1.7-4.1); Glucose 104 mg/dL (80-110); HEMOLYSIS < 15 (0-50); Sodium 138 mmol/L (137-145); Total Protein 5.7 g/dL (6.3-8.2)
[2024-03-17] MEDS: ALBUTEROL 2.5 MG/3 ML NEB (ADULT) INH ×5 (07:51→22:14)
[2024-03-17] MEDS: BUDESONIDE 0.5 MG/2 ML NEB INH ×2 (07:51→19:35)
[2024-03-17] MEDS: ATORVASTATIN 20 MG TABLET PO (08:49)
[2024-03-17] MEDS: ENOXAPARIN 40 MG/0.4 ML SYRINGE SUBCUT (08:49)
[2024-03-17] MEDS: SODIUM CHLORIDE 0.9% FLUSH 10 ML IV ×2 (08:49→20:09)
--- NOTE | 2024-03-17 11:15 | CM.DPC ---
Addendum entered by TAYLOR Sargent 03/17/24 14:21: ADD: Confirmation from [facility] that they can accept pt's referral when ready for discharge. CARI contacted Missy from [facility] and she confirms pt's insurance requires auth and they submitted to [facility] and could take 24-72 hours. CARI met bedside with pt and spouse and updated on above and provided the [facility] brochure and will follow for insurance auth for new bipap and to be delivered and teaching done at bedside prior to d/c home to [place]. BF Original Note: DCP Cont: Per MD, pt medically stable once Bipap ST set up through [facility]. SW spoke to RT and also Missy at [facility] ([phone]) to updated that pt NOT discharging with Hospice at this time but just referral for Info Visit only for future needs but pt still pursing tx at this time. CARI sent additional clinicals to review to Missy at her work secure email [email or web address] and she states their team will review and also confirm if [employer] auth needed for Bipap ST. Their preference is for pt to wait to discharge until they can provide that bipap to pt bedside since he [address] [facility] [address]. SW received a call from Kamar at [facility] confirming pt and spouse only interested in Info Visit at this time and SW also faxed requested additional clinicals for Echo/ prog note/Labs/POLST. Kamar will attempt to call spouse for Info Visit today or tomorrow. CARI met bedside with pt and spouse and explained role and they confirm they also recently spoke to Missy from [facility] and aware discharge is pending Bipap ST secured through [facility]. SW inquired about HH and discussed frequency and services and they feel HH PT/OT would be beneficial towards keeping pt's strength up as he has been mostly independent at baseline with ADLs but has been getting weaker. They did not feel RN or CANDLE EXTRUSION MACHINE OPERATOR would be needed and they live in a house they built for aging in place and easily accessible. SW discussed only HH agency that covers [place] is [facility] and will need to confirm if they are contracted with [facility]. They are agreeable with referral. SW made new referral to [facility] via secure email and they are contracted with [facility] and will confirm once they run his information. F2F and HH orders completed. SW updated RN. Plan: SW to follow closely for confirmation from Missy at [facility] that Bipap ST approved and set up and also confirmation [facility] can accept. Spouse plans to provide transport at d/c. TAYLOR Sargent
--- NOTE | 2024-03-17 17:58 | P.PN_ITS ---
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 Appetite ok, is very involved. Extensvie discussion today - sending pulm rehab referral through outside EMR. Exam Vital Signs (past 8 hours): - 03/17/24 10:00 03/17/24 10:01 03/17/24 10:01 Pulse Rate 90 88 Respiratory Rate 43 H 40 H Blood Pressure 143/79 H Pulse Oximetry 96 97 Oxygen Delivery Method Oxygen Flow Rate 03/17/24 11:00 03/17/24 11:00 03/17/24 11:04 Pulse Rate 84 84 Respiratory Rate 27 H 20 Blood Pressure 146/86 H Pulse Oximetry 96 98 Oxygen Delivery Method Nasal Cannula Oxygen Flow Rate 2 03/17/24 11:07 03/17/24 12:00 03/17/24 12:00 Pulse Rate 87 Respiratory Rate 36 H Blood Pressure 155/83 H Pulse Oximetry 95 94 Oxygen Delivery Method Room Air Oxygen Flow Rate 03/17/24 13:00 03/17/24 13:00 03/17/24 13:01 Pulse Rate 93 H 92 H Respiratory Rate 37 H 33 H Blood Pressure Pulse Oximetry 93 93 Oxygen Delivery Method Room Air Oxygen Flow Rate 03/17/24 13:01 03/17/24 14:00 03/17/24 14:00 Pulse Rate 86 Respiratory Rate 22 Blood Pressure 125/59 L 134/68 Pulse Oximetry 94 Oxygen Delivery Method Oxygen Flow Rate 03/17/24 15:00 03/17/24 15:00 03/17/24 16:00 Pulse Rate 77 82 Respiratory Rate 26 H 39 H Blood Pressure 111/80 Pulse Oximetry 98 94 Oxygen Delivery Method Oxygen Flow Rate 03/17/24 17:00 03/17/24 17:00 03/17/24 17:00 Pulse Rate 85 Respiratory Rate 30 H Blood Pressure 143/60 H Pulse Oximetry 95 Oxygen Delivery Method Room Air Oxygen Flow Rate Fraction of Inspired Oxygen 21 Oxygen Delivery Method Room Air Oxygen Flow Rate 2 Narrative Exam Narrative: resting in bed with bipap off Resp Other: moving air ok off bipap he just took off, speaking in full sentences. Cardio Other: regular rate and rhythm, s2,s2 Neuro Other: alert awake oriented Objective Labs 03/17/24 04:55 03/17/24 04:55 Labs: Laboratory Results - last 24 hr 03/17/24 04:55 WBC 7.9 RBC 4.92 Hgb 14.2 Hct 43.6 MCV 88.6 MCH 28.9 MCHC 32.6 RDW 15.5 H Plt Count 124 L Neut % (Auto) 68.8 Lymph % (Auto) 15.1 L [place] % (Auto) 14.7 H Eos % (Auto) 0.9 L Baso % (Auto) 0.5 Neut # (Auto) 5500 Lymph # (Auto) 1200 [place] # (Auto) 1200 H Eos # (Auto) 100 Baso # (Auto) 0 Sodium 138 Potassium 4.0 Chloride 101 Carbon Dioxide 38 H BUN 21 H Creatinine 0.62 L Estimated GFR > 60 BUN/Creatinine Ratio 33.9 H Glucose 104 Calcium 8.1 L Total Bilirubin 0.7 AST 34 ALT 27 Alkaline Phosphatase 73 Total Protein 5.7 L Albumin 3.2 L Globulin 2.5 Albumin/Globulin Ratio 1.3 PFSH Medical History (Updated 03/13/24 @ 16:56 by Carina Lazaro DO) Postop check Urinary retention Bladder calculi History of nephrolithiasis H/O nephrolithotomy with removal of calculi Renal disease Heart attack Kidney stones Enlarged prostate Hypercholesteremia Surgical History History of coronary artery stent placement Family History Mother Cancer CAD in [place] artery Hypertension Social History marital status: number of children: 1 household members: spouse Smoking Status: Former smoker alcohol intake: current Type(s) of exercise: walking frequency: 1-2 times per week Assessment & Plan Assessment & Plan narrative: #Acute hypoxemic respiratory failure on top of 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 BiPAP dependent and now waiting on Trelegy for discharge. BiPAP he cannotr eliably keep it on at night at home. continuied discussion today about restrictive vs obstructive lung disease etc. This has been building over the last year since a bad cough. Chest x-ray shows interstitial prominence, echocardiogram shows normal ejection fraction. Will set up for pulm rehab. advise use of incentive spirometer try to get sense of where he is at continuously. #Hyperlipidemia stable on home rosuvastatin #BPH s/p recent aquablation doing ok dispo: discharge home once trelegy is obtained. MDM: PCP: Brian diet: general
--- NOTE | 2024-03-17 18:31 | PC.NURSE ---
pt should be discharged home tomorrow, pending insurance approval; he has been on and off bipap this shift; he took a shower independently; replaced the duoderm to the bridge of his nose; he sat in the chair for several hours today
--- NOTE | 2024-03-17 20:15 | RT ---
Pt taking a break off BiPAP at this time.
--- NOTE | 2024-03-17 21:19 | RT ---
Pt back on BiPAP at this time, as requested.
[2024-03-18] VITALS (22 sets, daily range): BP systolic 118–158; BP diastolic 63–86; PULSE 71–94; RESP 18–38; TEMP 36.4–36.9; O2SAT 92–98
[2024-03-18] MEDS: BUDESONIDE 0.5 MG/2 ML NEB INH (06:03)
[2024-03-18] MEDS: ALBUTEROL 2.5 MG/3 ML NEB (ADULT) INH ×3 (06:03→15:20)
[2024-03-18] MEDS: ENOXAPARIN 40 MG/0.4 ML SYRINGE SUBCUT (08:27)
[2024-03-18] MEDS: ATORVASTATIN 20 MG TABLET PO (08:27)
[2024-03-18] MEDS: SODIUM CHLORIDE 0.9% FLUSH 10 ML IV (08:27)
--- NOTE | 2024-03-18 13:10 | P.DS_ITS ---
History of Present Illness History of Present Illness Date Patient Seen: 03/18/24 Time Patient Seen: 13:11 Date of Onset of Symptoms: 03/12/24 Chief complaint: GLF no thinners Narrative: See H&P dictated by Dr. Torres Discharge Providers Provider Date of admission: 03/13/24 17:04 Discharge Date: 03/18/24 Primary care physician: Eduardo oTrres MD Consults: 03/17/24 13:01 Consult to Home Health Routine Comment: restrictive lung disease, hypercapnia resp failur Reason For Exam: Set up HH PT/OT when stable for discharge home Discharge provider: Timoteo Bhatia MD Summary Hospital Course Discharge Diagnosis: Chronic hypercapnic respiratory failure Hypertension Hyperlipidemia BPH with history of retention Urinary odor Hospital Course: Chronic hypercapnic respiratory failure. Patient has longstanding struggle. And just had a progressive slow decline. Patient was placed on BiPAP here and did well. Due to outpatient failures and response to BiPAP due to multiple issues he will be set up with a outpatient BiPAP/trilogy machine and will be discharged home. Hospice was discussed. and him have decided they do not want to address at this time. But will continue to follow. Will follow-up on Sunday with usual physician Hypertension. Blood pressure has been well-controlled without change. Continue usual meds follow-up with usual PMD Hyperlipidemia. Continue rosuvastatin BPH. Patient seems to be urinating well. Has had his [place] discontinued and will continue to follow. Urinary odor. Last stay patient was complaining of urinary order. UA was obtained and culture. Will follow up with on Sunday 37 minutes spent discussing with nursing staff social service patient dictation orders Exam Vital Signs (past 8 hours): - 03/18/24 06:00 03/18/24 06:03 03/18/24 07:00 Temperature Pulse Rate 80 76 92 H Respiratory Rate 34 H 24 38 H Blood Pressure Pulse Oximetry 98 97 Oxygen Delivery Method Room Air Oxygen Flow Rate 0 Fraction of Inspired Oxygen 21 03/18/24 07:01 03/18/24 07:01 03/18/24 08:00 Temperature Pulse Rate 92 H 92 H Respiratory Rate 36 H 27 H Blood Pressure 118/83 Pulse Oximetry 97 96 Oxygen Delivery Method Oxygen Flow Rate Fraction of Inspired Oxygen 03/18/24 08:00 03/18/24 09:00 03/18/24 10:23 Temperature 97.8 F Pulse Rate 94 H Respiratory Rate 27 H Blood Pressure 158/77 H Pulse Oximetry Oxygen Delivery Method Oxygen Flow Rate Fraction of Inspired Oxygen 03/18/24 11:42 03/18/24 12:00 Temperature 98.5 F Pulse Rate 78 77 Respiratory Rate 30 H 35 H Blood Pressure 144/64 H Pulse Oximetry 97 98 Oxygen Delivery Method Room Air Oxygen Flow Rate 1.5 Fraction of Inspired Oxygen 21 Fraction of Inspired Oxygen 21 SaO2/FiO2 Ratio 461 Oxygen Delivery Method Room Air Oxygen Flow Rate 1.5 Narrative Exam Narrative: Alert male smiling interactive on oxygen HEENT exam is unremarkable. Neck supple without adenopathy. Heart regular rate and rhythm without murmur. Respiratory with decreased breath sounds throughout increased work of breathing slightly with expiratory wheeze. Prolonged expiration. Abdomen benign extremities trace edema Objective Labs 03/17/24 04:55 03/17/24 04:55 [facility] Medical History (Updated 03/13/24 @ 16:56 by Carina Lazaro DO) Postop check Urinary retention Bladder calculi History of nephrolithiasis H/O nephrolithotomy with removal of calculi Renal disease Heart attack Kidney stones Enlarged prostate Hypercholesteremia Surgical History History of coronary artery stent placement Family History Mother Cancer CAD in [place] artery Hypertension Social History marital status: number of children: 1 household members: spouse Smoking Status: Former smoker alcohol intake: current Type(s) of exercise: walking frequency: 1-2 times per week Discharge Assessment & Plan Assessment and Plan Assessment: Improved with BiPAP Plan of Treatment: Discharge home on BiPAP Discharge Plan Discharge Plan Patient Disposition: Home Provider Discharge Comment: With BiPAP machine Discharge orders & Medications Prescriptions: Continued (DME) Disable Parking Permit See Rx Instructions .Route .MEDSUPPLY Qty: 1 0RF Rx Instructions: I find this patient to be medically disabled and qualified for Disabled Parking as indicated, and signed, on the Accompanying Disabled Parking Application for Individuals cholecalciferol (vitamin D3) [Vitamin D3] 50 mcg (2,000 unit) Capsule 50 mcg PO DAILY docusate sodium 100 mg capsule 100 mg PO BID PRN (Reason: Constipation) Patient Comments: Taking every other day ketoconazole 2 % shampoo 1 applic topical DAILY albuterol sulfate 90 mcg/actuation HFA aerosol inhaler 2 puff inhalation Q4H PRN (Reason: Wheezing) rosuvastatin 10 mg tablet 10 mg PO DAILY fluticasone propion-salmeterol 250-50 mcg/dose blister with device 1 inh inhalation BID Qty: 60 3RF Patient Comments: Alternating every other day with Advair 115/21 mcg (DME) Aerochamber MV Spacer See Rx Instructions .Route Qty: 1 1RF Rx Instructions: As directed acetaminophen [Tylenol Extra Strength] 500 mg tablet 500 mg PO Q6H PRN (Reason: Pain (Scale Score 1-3)) mecobalamin (vitamin B12) 5,000 mcg tablet,disintegrating 5,000 mcg PO DAILY Hany Mag Zinc Plus D3 333 mg-133 unit -133 mg-5 mg tablet 1 tab PO DAILY vitamin K2 45 mcg capsule 45 mcg PO DAILY flaxseed oil 1,000 mg capsule 1,000 mg PO DAILY Rx Instructions: administer with a meal Follow up/Referrals: Eduardo Torres MD [Primary Care Provider] - 03/21/24 (Please call for appointment on Sunday) Discharge Health Status Multidrug resistant organism: No MDRO Diet/Activity/Treatments Diet: Diet as Tolerated Activity: As tolerated Skin/Wound/Dressing Care Report to your healthcare provider any signs of infection, such as:: chills, fever and night sweats Visit Report/Discharge Packet Stand Alone Forms: Patient Portal/API, Stroke Signs & Symptoms Discharge Data Primary Care Provider: Eduardo Torres
--- NOTE | 2024-03-18 14:17 | CM.DPC ---
DCP Cont. Reviewed EMR and team rounds for status updates. Pt has been medically cleared for home d/c this afternoon. The rep from the bipap company will be coming to the hospital today at 3:00pm to do pt/cg training on the new bipap that he will taking home. No further DCP needs identified at this time.
[2024-03-18 15:02] LABS: Bilirubin Urine UA NEGATIVE (NEGATIVE); Color Urine UA YELLOW; Glucose Urine UA NEGATIVE (Negative); Ketones Urine UA NEGATIVE (NEGATIVE); Leukocyte Esterase Urine UA 1+ (NEGATIVE); Nitrite Urine UA NEGATIVE (Negative); Occult Blood Urine UA 1+ (Negative); Protein Urine UA 1+ (Negative); pH Urine UA 6.5 (4.5-8.0)
[2024-03-18 15:05] LABS: Appearance Urine UA SL CLOUDY
[2024-03-18 15:09] LABS: RBC Urine 1-5/HPF (0-5/HPF); Urine Volume 10mL (spun)
[2024-03-18 15:10] LABS: Amorphous Sediment Urine 1+; Bacteria Urine Many (>30); Culture Indicated Urine Specimen Cultured; Squamous Epithelial Cell Urine None Seen (0-5/HPF); WBC Urine 10-30/HPF (0-5/HPF)
== END 2024-03-18 15:42 | disposition home or self-care (01) | DRG 189 ==
LOC: ED 16:56 → AC 17:05 → ICU 17:17
PROVIDERS: Emergency Medicine; Family Medicine; Admitting Provider Family Medicine; Emergency Provider Emergency Medicine; PCP Family Medicine; Referring Provider Emergency Medicine; Visit Provider Family Medicine
DX: J96.22 Acute and chronic respiratory failure with hypercapnia (principal); I24.89 Other forms of acute ischemic heart disease; E78.5 Hyperlipidemia, unspecified; Z66 Do not resuscitate; J45.909 Unspecified asthma, uncomplicated; J98.4 Other disorders of lung; N40.1 Benign prostatic hyperplasia with lower urinary tract symptoms; R33.8 Other retention of urine; I10 Essential (primary) hypertension; Z87.891 Personal history of nicotine dependence
CPT/HCPCS: 36415; 36600; 71045; 80053; 81001; 82550; 82805; 83605; 83735; 83880; 84484; 85025; 85610; 87040; 87077; 87086; 87186; 87633; 87797; 93005; 94640; 94660; 96374; 99232; 99285; 99291; J1650; J1940; J7613

== ENCOUNTER 2024-03-30 17:27 | Emergency (ER) | payer OTHER, SELFPAY ==
[2024-03-13 17:13] VITALS: BMI 24.5
[2024-03-18 04:15] VITALS: PULSE 73; RESP 18; O2SAT 95
[2024-03-30] VITALS (13 sets, daily range): BP systolic 140–176; BP diastolic 70–108; PULSE 93–109; RESP 14–44; TEMP 36.9; O2SAT 93–97; BMI 24.0
--- NOTE | 2024-03-30 17:36 | DI.RAD.S_ITS ---
PROCEDURE: XR CHEST 1V INDICATIONS: Shortness of breath TECHNIQUE: One view of the chest was acquired. COMPARISON: [facility], , XR CHEST 1V, 03/13/2024, 14:17. [facility], CR, XR CHEST 1V, 02/02/2024, 15:15. FINDINGS: Surgical changes and devices: None. Lungs and pleura: Lungs are clear. Low lung volumes. No pleural effusions or pneumothorax. Mediastinum: Mediastinal contours appear normal. Heart size is normal. Bones and chest wall: No suspicious bony lesions. Overlying soft tissues appear unremarkable. IMPRESSION: No acute cardiopulmonary abnormality is seen. Dictated by: Juan Francisco Berger M.D. on 03/30/2024 at 17:13 Approved by: Juan Francisco Berger M.D. on 03/30/2024 at 17:14
[2024-03-30] MEDS: ALBUTEROL/IPRATROPIUM 3 ML AMPUL INH ×2 (17:37)
[2024-03-30 17:44] LABS: Add Manual Diff / Slide Review NO; Basophils Absolute Auto 0 /uL (0-100); Basophils Percent Auto 0.3 % (0-2); Eosinophils Absolute Auto 0 /uL (0-450); Eosinophils Percent Auto 0.3 % (2-4); Hematocrit 45.8 % (41-53); Hemoglobin 15.2 g/dL (13.5-17.5); Lymphocytes Absolute Auto 900 /uL (1100-4500); Lymphocytes Percent Auto 12.2 % (25-40); Mean Corpuscular HGB Conc 33.3 % (30-36); Mean Corpuscular Volume 87.2 fL (80-100); Monocytes Absolute Auto 700 /uL (0-900); Monocytes Percent Auto 9.3 % (3-14); Neutrophils Absolute Auto 6000 /uL (1500-7000); Neutrophils Percent Auto 77.9 % (50-75); Platelet Count 202 X10^3/uL (150-400); Red Blood Cell Count 5.25 X10^6/uL (4.5-5.9); Red Cell Distribution Width 15.1 % (11.6-14.8); White Blood Cell Count 7.7 X10^3/uL (4.5-11.0)
[2024-03-30] MEDS: methylPREDNISolone 125 MG/2 ML VIAL IV (17:46)
[2024-03-30 17:50] LABS: Lactate (Lactic Acid) 2.2 mmol/L (0.7-2.1)
[2024-03-30 17:51] LABS: Alanine Aminotransferase 27 IU/L (<50); Albumin Globulin Ratio 1.4 (1.0-2.8); Alkaline Phosphatase 100 U/L (38-126); Aspartate Aminotransferase 24 IU/L (17-59); BUN Creatinine Ratio 25.4 (6-22); Bilirubin Total 0.8 mg/dL (0.2-1.3); Blood Urea Nitrogen 16 mg/dL (9-20); Calcium 8.8 mg/dL (8.4-10.2); Carbon Dioxide 21 mmol/L (22-32); Chloride 108 mmol/L (98-107); Creatine Kinase 51 U/L (55-170); Estimated Glomerular Filt Rate > 60 mL/min (>60); Globulin 2.9 g/dL (1.7-4.1); Glucose 93 mg/dL (80-110); HEMOLYSIS < 15 (0-50); Lipase 67 U/L (23-300); Potassium 3.5 mmol/L (3.4-5.1); Sodium 137 mmol/L (137-145); Total Protein 6.9 g/dL (6.3-8.2)
[2024-03-30 18:03] LABS: NT-proBNP (BNP-Adult 18+) 267 pg/mL (<450); Troponin I < 0.012 ng/mL (0.01-0.034)
[2024-03-30 18:08] LABS: Procalcitonin 0.071 ng/mL (<0.5)
--- NOTE | 2024-03-30 18:08 | ED_ITS ---
HPI - SOB/Dyspnea General Chief Complaint: Shortness of Breath/Dyspnea Stated Complaint: SOB Time Seen by Provider: 03/30/24 17:32 Source: patient, family and EMS Mode of arrival: EMS Limitations: no limitations History of Present Illness HPI Narrative: 78-year-old male with history of CAD status post remote stenting, also history of restrictive lung disease followed by pulmonology, no home oxygen, uses MDI inhaler and topical steroid inhaler, now with 2 days duration of increasing shortness of breath, not particularly coughing, some chest tightness symptoms, feels this is more likely his lungs bothering him, no fevers or chills. Arrived by EMS, on CPAP initially, given nebulized bronchodilator EN route with significant improvement. Shortly after arrival to the emergency department was transitioned off the CPAP and off oxygen. He denies any pain to his neck, jaw, arm, back. No close contacts to persons with recent respiratory illness symptoms. Related Data Home Medications Medication Instructions Recorded Confirmed cholecalciferol (vitamin D3) 50 50 mcg PO DAILY 11/27/22 03/13/24 mcg (2,000 unit) capsule (Vitamin D3) albuterol sulfate 90 mcg/actuation 2 puff inhalation Q4H PRN Wheezing 01/08/24 03/13/24 aerosol inhaler ketoconazole 2 % shampoo 1 applic topical DAILY 01/08/24 03/13/24 rosuvastatin 10 mg tablet 10 mg PO DAILY 01/08/24 03/13/24 docusate sodium 100 mg capsule 100 mg PO BID PRN Constipation 02/02/24 03/13/24 acetaminophen 500 mg tablet 500 mg PO Q6H PRN Pain (Scale 03/04/24 03/13/24 (Tylenol Extra Strength) Score 1-3) calcium carb 333 mg-vit D3 133 1 tab PO DAILY 03/04/24 03/13/24 unit-mag ox 133 mg-zinc oxide 5 mg tab (Hany Mag Zinc Plus D3) flaxseed oil 1,000 mg capsule 1,000 mg PO DAILY 03/04/24 03/13/24 mecobalamin (vitamin B12) 5,000 5,000 mcg PO DAILY 03/04/24 03/13/24 mcg disintegrating tablet vitamin K2 45 mcg capsule 45 mcg PO DAILY 03/04/24 03/13/24 Previous Rx's Medication Instructions Recorded fluticasone 250 mcg-salmeterol 50 1 inh inhalation BID #60 ea 08/14/23 mcg/dose blistr powdr for inhalation inhalational spacing device #1 ea 11/14/23 (Aerochamber MV spacer) Disable Parking Permit #1 ea 03/12/24 prednisone 20 mg tablet 40 mg (2 x 20 mg) PO DAILY 5 days 03/30/24 #10 tabs Allergies Allergy/AdvReac Type Severity Reaction Status Date / Time No Known Drug Allergies Allergy Verified 03/04/24 13:55 Review of Systems Review of Systems Narrative: per HPI Patient History Medical History (Updated 03/30/24 @ 19:13 by Jose Alba MD) Postop check Urinary retention Bladder calculi History of nephrolithiasis H/O nephrolithotomy with removal of calculi Renal disease Heart attack Kidney stones Enlarged prostate Hypercholesteremia Surgical History History of coronary artery stent placement Family History Mother Cancer CAD in [place] artery Hypertension Social History marital status: number of children: 1 household members: spouse Smoking Status: Former smoker alcohol intake: current Type(s) of exercise: walking frequency: 1-2 times per week Smoking Status: Former smoker alcohol intake frequency: holidays/special occasions only Substance Use Type: does not use Exam Narrative Exam Narrative: GENERAL: Well-developed patient, in mild distress. HEAD: Atraumatic. Normocephalic. EYES: Pupils equal round and reactive. Extraocular motions intact. No scleral icterus. No injection or drainage. ENT: Nose without bleeding, purulent drainage. Throat without erythema, tonsillar hypertrophy or exudate. Airway patent. NECK: Trachea midline. Non tender CARDIOVASCULAR: Regular rate and rhythm without murmurs, gallops, or rubs. RESPIRATORY: Some wheeze bilaterally, speaks in just short of full sentences, no suprasternal retractions, no intercostal retractions. No crackles or rhonchi. GASTROINTESTINAL: Abdomen soft, non-tender, nondistended. EXTREMITIES: No edema or joint tenderness. BACK: Nontender without deformity or crepitance. No flank tenderness. NEURO: AOx3. SKIN: No rash or erythema of visible areas Initial Vital Signs Initial Vital Signs: Vital Signs Pulse Rate 93 H 03/30/24 17:34 Respiratory Rate 29 H 03/30/24 17:34 Pulse Oximetry 95 03/30/24 17:34 Course Orders Ordered: ED Orders 03/30/24 17:36 XR chest 1V Stat 03/30/24 18:14 Respiratory Panel (Film Array) Stat 03/30/24 18:44 Urine Culture Stat Urine Microscopic Stat 03/30/24 19:30 Troponin I Stat Discontinued Medications Albuterol (Albuterol 2.5 Mg/3 Ml Neb (Adult)) 2.5 mg INH NOW ONE Stop: 03/30/24 19:24 Last Admin: 03/30/24 19:26 Dose: 2.5 mg Documented By: MR Albuterol/Ipratropium (Albuterol/Ipratropium 3 Ml Ampul) 3 ml INH NOW ONE Stop: 03/30/24 17:33 Last Admin: 03/30/24 17:37 Dose: 3 ml Documented By: KATERIN Albuterol/Ipratropium (Albuterol/Ipratropium 3 Ml Ampul) 3 ml INH NOW ONE Stop: 03/30/24 17:33 Last Admin: 03/30/24 17:37 Dose: 3 ml Documented By: KATERIN Albuterol/Ipratropium (Albuterol/Ipratropium 3 Ml Ampul) 3 ml INH NOW ONE Stop: 03/30/24 19:18 Last Admin: 03/30/24 20:30 Dose: Not Given Documented By: JOSE Sodium Chloride (Normal Saline 0.9%) 1,000 mls @ 1,000 mls/hr IV BOLUS ONE Stop: 03/30/24 19:50 Last Infusion: 03/30/24 20:08 Dose: Infused Documented By: Admin: 03/30/24 18:52 Dose: 1,000 mls/hr Documented By: JOSE Methylprednisolone (Methylprednisolone 125 Mg/2 Ml Vial) 125 mg IV NOW ONE Stop: 03/30/24 17:42 Last Admin: 03/30/24 17:46 Dose: 125 mg Documented By: JOSE Vital Signs Vital signs: Vital Signs - 8 hr 03/30/24 18:30 03/30/24 18:30 03/30/24 18:45 Pulse Rate 104 H 104 H Respiratory Rate 40 H Blood Pressure 160/75 H Pulse Oximetry 95 97 Oxygen Delivery Method 03/30/24 18:45 03/30/24 19:00 03/30/24 19:01 Pulse Rate 108 H 109 H Respiratory Rate Blood Pressure 174/79 H Pulse Oximetry 95 95 Oxygen Delivery Method 03/30/24 19:01 03/30/24 21:15 Pulse Rate 107 H Respiratory Rate 14 Blood Pressure 176/104 H 140/71 Pulse Oximetry 96 Oxygen Delivery Method Room Air MDM - SOB/Dyspnea Lab Data Attestation: I reviewed the patient's lab results. 03/30/24 17:20 03/30/24 17:20 Labs: Lab Results 03/30/24 03/30/24 03/30/24 Range/Units 17:20 18:14 18:44 WBC 7.7 (4.5-11.0) X10^3/uL RBC 5.25 (4.5-5.9) X10^6/uL Hgb 15.2 (13.5-17.5) g/dL Hct 45.8 (41-53) % MCV 87.2 (80-100) fL MCH 29.0 (26-34) PG MCHC 33.3 (30-36) % RDW 15.1 H (11.6-14.8) % Plt Count 202 (150-400) X10^3/uL Neut % (Auto) 77.9 H (50-75) % Lymph % (Auto) 12.2 L (25-40) % [place] % (Auto) 9.3 (3-14) % Eos % (Auto) 0.3 L (2-4) % Baso % (Auto) 0.3 (0-2) % Neut # (Auto) 6000 (5267-3594) /uL Lymph # (Auto) 900 L (5497-6303) /uL [place] # (Auto) 700 (0-900) /uL Eos # (Auto) 0 (0-450) /uL Baso # (Auto) 0 (0-100) /uL Sodium 137 (137-145) mmol/L Potassium 3.5 (3.4-5.1) mmol/L Chloride 108 H (98-107) mmol/L Carbon Dioxide 21 L (22-32) mmol/L BUN 16 (9-20) mg/dL Creatinine 0.63 L (0.66-1.25) mg/dL Estimated GFR > 60 (>60) mL/min BUN/Creatinine Ratio 25.4 H (6-22) Glucose 93 (80-110) mg/dL Lactate 2.2 H (0.7-2.1) mmol/L Calcium 8.8 (8.4-10.2) mg/dL Total Bilirubin 0.8 (0.2-1.3) mg/dL AST 24 (17-59) IU/L ALT 27 (<50) IU/L Alkaline Phosphatase 100 (38-126) U/L Total Creatine Kinase 51 L (55-170) U/L Troponin I < 0.012 (0.01-0.034) ng/mL NT-Pro-B Natriuret Pep 267 (<450) pg/mL Total Protein 6.9 (6.3-8.2) g/dL Albumin 4.0 (3.5-5.0) g/dL Globulin 2.9 (1.7-4.1) g/dL Albumin/Globulin Ratio 1.4 (1.0-2.8) Lipase 67 (23-300) U/L Procalcitonin 0.071 (<0.5) ng/mL Urine RBC None seen (0-5/HPF) Urine WBC 0-1/hpf (0-5/HPF) Ur Squamous Epith Cells None seen (0-5/HPF) Urine Bacteria Occasional (0-1) D (None) Ur Culture Indicated? Cult not indicated Vol Urine Centrifuged 10ml (spun) Chlamy pneumoniae PCR Not detected (Not Detect) Adenovirus (PCR) Not detected (Not Detect) B.parapertussis DNA PCR Not detected (Not Detecte) Coronavirus OC43 (PCR) Not detected (Not Detect) Coronavirus HKU1 (PCR) Not detected (Not Detect) Coronavirus 229E (PCR) Not detected (Not Detect) SARS-CoV-2 (PCR) Not detected (Not Detecte) Coronavirus NL63 (PCR) Not detected (Not Detect) Human Metapneumovir PCR Not detected (Not Detect) Influenza Type A (PCR) Not detected (Not Detect) Influenza Type B (PCR) Not detected (Not Detect) M. pneumoniae (PCR) Not detected (Not Detect) Parainfluenza 1 (PCR) Not detected (Not Detect) Parainfluenza 2 (PCR) Not detected (Not Detect) Parainfluenza 3 (PCR) Not detected (Not Detect) Parainfluenza 4 (PCR) Not detected (Not Detect) RSV (PCR) Not detected (Not Detect) Entero/Rhino (PCR) Not detected (Not Detect) 03/30/24 Range/Units 19:30 WBC (4.5-11.0) X10^3/uL RBC (4.5-5.9) X10^6/uL Hgb (13.5-17.5) g/dL Hct (41-53) % MCV (80-100) fL MCH (26-34) PG MCHC (30-36) % RDW (11.6-14.8) % Plt Count (150-400) X10^3/uL Neut % (Auto) (50-75) % Lymph % (Auto) (25-40) % [place] % (Auto) (3-14) % Eos % (Auto) (2-4) % Baso % (Auto) (0-2) % Neut # (Auto) (1976-5033) /uL Lymph # (Auto) (9574-3404) /uL [place] # (Auto) (0-900) /uL Eos # (Auto) (0-450) /uL Baso # (Auto) (0-100) /uL Sodium (137-145) mmol/L Potassium (3.4-5.1) mmol/L Chloride (98-107) mmol/L Carbon Dioxide (22-32) mmol/L BUN (9-20) mg/dL Creatinine (0.66-1.25) mg/dL Estimated GFR (>60) mL/min BUN/Creatinine Ratio (6-22) Glucose (80-110) mg/dL Lactate 1.8 (0.7-2.1) mmol/L Calcium (8.4-10.2) mg/dL Total Bilirubin (0.2-1.3) mg/dL AST (17-59) IU/L ALT (<50) IU/L Alkaline Phosphatase (38-126) U/L Total Creatine Kinase (55-170) U/L Troponin I < 0.012 (0.01-0.034) ng/mL NT-Pro-B Natriuret Pep (<450) pg/mL Total Protein (6.3-8.2) g/dL Albumin (3.5-5.0) g/dL Globulin (1.7-4.1) g/dL Albumin/Globulin Ratio (1.0-2.8) Lipase (23-300) U/L Procalcitonin (<0.5) ng/mL Urine RBC (0-5/HPF) Urine WBC (0-5/HPF) Ur Squamous Epith Cells (0-5/HPF) Urine Bacteria (None) Ur Culture Indicated? Vol Urine Centrifuged Chlamy pneumoniae PCR (Not Detect) Adenovirus (PCR) (Not Detect) B.parapertussis DNA PCR (Not Detecte) Coronavirus OC43 (PCR) (Not Detect) Coronavirus HKU1 (PCR) (Not Detect) Coronavirus 229E (PCR) (Not Detect) SARS-CoV-2 (PCR) (Not Detecte) Coronavirus NL63 (PCR) (Not Detect) Human Metapneumovir PCR (Not Detect) Influenza Type A (PCR) (Not Detect) Influenza Type B (PCR) (Not Detect) M. pneumoniae (PCR) (Not Detect) Parainfluenza 1 (PCR) (Not Detect) Parainfluenza 2 (PCR) (Not Detect) Parainfluenza 3 (PCR) (Not Detect) Parainfluenza 4 (PCR) (Not Detect) RSV (PCR) (Not Detect) Entero/Rhino (PCR) (Not Detect) Urine Dip Bedside Urine Glucose Negative Bedside Urine Bilirubin - Negative Bedside Urine Ketone + 15 Urine Specific [place] 1.005 Bedside Urine Occult Blood - Negative Bedside Urine pH 8.5 Bedside Urine Protein - Negative Bedside Urine Urobilinogen - Negative Bedside Urine Nitrite - Negative Bedside Urine Leukocytes +/- 15 Esterase Imaging Data Chest x-ray: Radiologist's Impression: [address] [id number] XRay Report Signed Patient: Joe Boggs MR#: [id number] : 1945 Acct:[id number] Age/Sex: 78 / M Date of Service: 03/30/24 Loc: ED Accession Number: [id number] Procedure: XR chest 1V Ordering Provider: Rodri Larsen D.O. PROCEDURE: XR CHEST 1V INDICATIONS: Shortness of breath TECHNIQUE: One view of the chest was acquired. COMPARISON: [facility], CR, XR CHEST 1V, 03/13/2024, 14:17. [facility], CR, XR CHEST 1V, 02/02/2024, 15:15. FINDINGS: Surgical changes and devices: None. Lungs and pleura: Lungs are clear. Low lung volumes. No pleural effusions or pneumothorax. Mediastinum: Mediastinal contours appear normal. Heart size is normal. Bones and chest wall: No suspicious bony lesions. Overlying soft tissues appear unremarkable. IMPRESSION: No acute cardiopulmonary abnormality is seen. Dictated by: Juan Francisco Beregr M.D. on 03/30/2024 at 17:13 Approved by: Juan Francisco Berger M.D. on 03/30/2024 at 17:14 [facility] Narrative Medical decision making narrative: 78-year-old male with history of CAD and chronic lung disease, no home oxygen, home breathing treatments, followed by pulmonology, dyspnea and chest tightness, EMS gave SVN, transitioned from CPAP off of oxygen here much improved after breathing treatment, given another DuoNeb, IV Solu-Medrol given here, further improved. Initial lactate slight elevation noted. Add urinalysis. Add respiratory swab panel. Respiratory panel negative. Chest x-ray negative. UA negative. IV fluid bolus 1 L, repeat lactate normalized. Patient had slight increased shortness of breath, no LE edema, BNP not elevated, no hypoxia, we will give an additional SVN DuoNeb. Further improved, off oxygen, back at baseline. 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 Return precautions discussed. Stable, improved, home with . Prednisone pulse sent to his pharmacy. He has inhalers to use at home. Critical Care Time Critical Care Time Critical Care Time: Yes Total Critical Care Time: 31 Attestation: The high probability of a clinically significant, sudden or life threatening deterioration of the [cardiopulmonary,] system(s) required my full and direct attention, intervention and personal management. The aggregate critical care time was [31] minutes. This time is in addition to time spent performing reported procedures but includes the following: [x] Data Review and interpretation [x] Patient assessment and monitoring of vital signs [x] Documentation [x] Medication orders and management Discharge Plan Departure Patient Disposition: Home Clinical Impression: Dyspnea, COPD exacerbation Instructions: DI for Asthma -- Adult, DI for Chronic Obstructive Pulmonary Disease Activity Restrictions/Additional Instructions: Shortness of breath, history of restrictive lung disease, transfer by EMS, given steroids, given breathing treatments, significantly improved, on room air. Use inhalers with spacer at home as directed, and continuing your chronic lung medications. Take prednisone steroid daily for the next few days, prescription sent to your pharmacy. Follow up with your moisture conditioner operator later this month as planned. Return earlier to this/nearest emergency department for any change worsening symptoms or any concerns prior Prescriptions: New prednisone 20 mg tablet 40 mg PO DAILY 5 Days Qty: 10 0RF No Action (DME) Disable Parking Permit See Rx Instructions .Route .MEDSUPPLY Qty: 1 0RF Rx Instructions: I find this patient to be medically disabled and qualified for Disabled Parking as indicated, and signed, on the Accompanying Disabled Parking Application for Individuals cholecalciferol (vitamin D3) [Vitamin D3] 50 mcg (2,000 unit) Capsule 50 mcg PO DAILY docusate sodium 100 mg capsule 100 mg PO BID PRN (Reason: Constipation) Patient Comments: Taking every other day ketoconazole 2 % shampoo 1 applic topical DAILY albuterol sulfate 90 mcg/actuation HFA aerosol inhaler 2 puff inhalation Q4H PRN (Reason: Wheezing) rosuvastatin 10 mg tablet 10 mg PO DAILY fluticasone propion-salmeterol 250-50 mcg/dose blister with device 1 inh inhalation BID Qty: 60 3RF Patient Comments: Alternating every other day with Advair 115/21 mcg (DME) Aerochamber MV Spacer See Rx Instructions .Route Qty: 1 1RF Rx Instructions: As directed acetaminophen [Tylenol Extra Strength] 500 mg tablet 500 mg PO Q6H PRN (Reason: Pain (Scale Score 1-3)) mecobalamin (vitamin B12) 5,000 mcg tablet,disintegrating 5,000 mcg PO DAILY Hany Mag Zinc Plus D3 333 mg-133 unit -133 mg-5 mg tablet 1 tab PO DAILY vitamin K2 45 mcg capsule 45 mcg PO DAILY flaxseed oil 1,000 mg capsule 1,000 mg PO DAILY Rx Instructions: administer with a meal Referrals: Eduardo Torres MD [Primary Care Provider] - Stand Alone Forms: Patient Portal/API
[2024-03-30] MEDS: SODIUM CHLORIDE 0.9% 1,000 ML 1000 ML IV (18:52)
[2024-03-30 19:01] LABS: Bacteria Urine Occasional (0-1); RBC Urine None Seen (0-5/HPF); Squamous Epithelial Cell Urine None Seen (0-5/HPF); Urine Volume 10mL (spun); WBC Urine 0-1/HPF (0-5/HPF)
[2024-03-30 19:02] LABS: Culture Indicated Urine Cult Not Indicated
[2024-03-30 19:09] LABS: Adenovirus Not Detected (Not Detect); B. parapertussis Not Detected (Not Detecte); Bordetella pertussis Not Detected (Not Detect); Chlamydophila pneumoniae Not Detected (Not Detect); Coronavirus 229E Not Detected (Not Detect); Coronavirus HKU1 Not Detected (Not Detect); Coronavirus NL 63 Not Detected (Not Detect); Coronavirus OC43 Not Detected (Not Detect); Human Metapneumovirus Not Detected (Not Detect); Human Rhinovirus/Enterovirus Not Detected (Not Detect); Influenza A Not Detected (Not Detect); Influenza B Not Detected (Not Detect); Mycoplasma pneumoniae Not Detected (Not Detect); Parainfluenza Virus 1 Not Detected (Not Detect); Parainfluenza Virus 2 Not Detected (Not Detect); Parainfluenza Virus 3 Not Detected (Not Detect); Parainfluenza Virus 4 Not Detected (Not Detect); Respiratory Syncytial Virus Not Detected (Not Detect); SARS- CoV-2 Not Detected (Not Detecte)
--- NOTE | 2024-03-30 19:12 | PC.NURSE ---
patient stated his work of breathing is getting bad again. he was up at bedside to urinated before that happened. Provider aware. medications orders
[2024-03-30 19:17] LABS: Reflexed Lactate in 2 Hours Y
[2024-03-30] MEDS: ALBUTEROL 2.5 MG/3 ML NEB (ADULT) INH (19:26)
[2024-03-30 19:48] LABS: Lactate 2HR (Lactic Acid Rflx) 1.8 mmol/L (0.7-2.1)
[2024-03-30 20:01] LABS: Troponin I < 0.012 ng/mL (0.01-0.034)
== END 2024-03-30 21:18 | disposition home or self-care (01) ==
PROVIDERS: Emergency Medicine; Emergency Provider Emergency Medicine; PCP Family Medicine
DX: J44.1 Chronic obstructive pulmonary disease with (acute) exacerbation (principal); R06.00 Dyspnea, unspecified; Z11.52 Encounter for screening for COVID-19
CPT/HCPCS: 36415; 71045; 80053; 81003; 81015; 82550; 83605; 83690; 83880; 84145; 84484; 85025; 87086; 87633; 94640; 96361; 96374; 99284; J2919; J7613

== ENCOUNTER → 2024-04-07 09:52 | Outpatient (CLI) | payer OTHER, SELFPAY ==
[2024-03-13 17:13] VITALS: BMI 24.5
[2024-03-18 04:15] VITALS: PULSE 73; RESP 18; O2SAT 95
[2024-04-07 12:12] LABS: Base Excess ABG 2.1 mmol/L (-2-3); Fractionated Inspired Oxygen 21; HCO3 ABG 25 mmol/L (23-27); Oxygen Saturation ABG 99 % (95-100); PCO2 ABG 33.1 mmHg (35-45); PO2 ABG 115 mmHg (80-100); TCO2 ABG 25 mmol/L (23-27); pH ABG 7.49 (7.35-7.45)
[2024-04-07 12:13] LABS: Allen Test for ABG Passed? Yes, Passed; Respiratory Rate 28
[2024-04-07 12:24] LABS: Blood Gas Collection Site Right Radial
== END ==
PROVIDERS: Internal Medicine Critical Care Medicine; PCP Family Medicine; Referring Provider Internal Medicine Critical Care Medicine; Visit Provider Internal Medicine Critical Care Medicine
DX: R06.02 Shortness of breath (principal); Z87.891 Personal history of nicotine dependence; R94.2 Abnormal results of pulmonary function studies
CPT/HCPCS: 36600; 82805; 94060; 94726; 94729

== ENCOUNTER → 2024-09-08 09:57 | Outpatient (CLI) | payer OTHER, SELFPAY ==
[2024-03-13 17:13] VITALS: BMI 24.5
[2024-03-18 04:15] VITALS: PULSE 73; RESP 18; O2SAT 95
[2024-09-08 10:44] LABS: Appearance Urine UA CLEAR; Bilirubin Urine UA NEGATIVE (NEGATIVE); Color Urine UA YELLOW; Glucose Urine UA NEGATIVE (Negative); Ketones Urine UA NEGATIVE (NEGATIVE); Leukocyte Esterase Urine UA 1+ (NEGATIVE); Nitrite Urine UA NEGATIVE (Negative); Occult Blood Urine UA TRACE-INTACT (Negative); Protein Urine UA NEGATIVE (Negative); Specific Gravity Urine UA 1.025 (1.000-1.035); Urobilinogen Urine UA 0.2 E.U./dL (0.2)
[2024-09-08 11:01] LABS: Bacteria Urine None Seen; Culture Indicated Urine Specimen Cultured; RBC Urine None Seen (0-5/HPF); Squamous Epithelial Cell Urine None Seen (0-5/HPF); Urine Volume 10mL (spun); WBC Urine 5-10/HPF (0-5/HPF)
== END ==
LOC: LAB 09:58
PROVIDERS: Family Provider Family Medicine; PCP Family Medicine; Referring Provider Urology; Visit Provider Urology
DX: R33.9 Retention of urine, unspecified (principal); N40.1 Benign prostatic hyperplasia with lower urinary tract symptoms; N13.8 Other obstructive and reflux uropathy
CPT/HCPCS: 81001; 87077; 87086

== ENCOUNTER → 2024-12-11 15:02 | Outpatient (CLI) | payer OTHER, SELFPAY ==
[2024-03-13 17:13] VITALS: BMI 24.5
[2024-03-18 04:15] VITALS: PULSE 73; RESP 18; O2SAT 95
== END ==
PROVIDERS: Family Provider Family Medicine; PCP Family Medicine; Referring Provider Internal Medicine Critical Care Medicine; Visit Provider Internal Medicine Critical Care Medicine
DX: G12.21 Amyotrophic lateral sclerosis (principal); Z87.891 Personal history of nicotine dependence; R94.2 Abnormal results of pulmonary function studies
CPT/HCPCS: 94060; 94618; 94726; 94729

== ENCOUNTER → 2025-06-25 09:51 | Outpatient (CLI) | payer OTHER, SELFPAY ==
[2024-03-13 17:13] VITALS: BMI 24.5
[2024-03-18 04:15] VITALS: PULSE 73; RESP 18; O2SAT 95
== END ==
PROVIDERS: PCP Family Medicine; Visit Provider Urology
DX: N40.1 Benign prostatic hyperplasia with lower urinary tract symptoms (principal); N13.8 Other obstructive and reflux uropathy
CPT/HCPCS: 51798; 81002; 87077; 87086; 99213